=== PATIENT | male | born 1965 | race Caucasian/White ===

== ENCOUNTER 2016-04-21 07:07 | Observation (INO) | payer OTHER ==
[~2016-04-21] VITALS: Ht 177.8 cm; Wt 48.7 kg
[~2016-04-21 07:07] MED LIST: IBUP-232 PO
[2016-04-21 07:15] VITALS: BP 137/99; PULSE 97; RESP 16; TEMP 98.1; O2SAT 99
--- NOTE | 2016-04-21 07:57 | PD ---
HPI Chief Complaint: GI Complaint Time Seen by Provider: 07:38 Travel History International Travel<30 days: No Contact w/Intl Traveler<30days: No Traveled to known affect area: No History of Present Illness HPI 50yo M with no significant PMH presents to the ED with c/o inability to eat solid food since Tuesday night. States he was eating dinner and then felt a food particle stuck in his esophagus and was able to vomit it out. Pt states after that incident, he had not been able to eat anything solid. Feels that the food get stuck in midsternum around xyphoid process and it becomes painful to eat. Pt only able to eat 2 puddings since then. Able to drink liquid but takes 45 minutes to drink just a cup of coffee this morning. Denies any nausea , vomiting, chest pain, sob, abdominal pain. Denies history of achalasia, esophageal strictures or similar events. PFSH Past Medical History Medical History: Denies Significant Hx Tetanus Vaccination: < 5 Years Influenza Vaccination: No Past Surgical History Appendectomy: Yes Tonsillectomy: Yes Social History Alcohol Use: Yes (WEEKENDS) Tobacco Use: Yes (1PPD) Substance Use: No Allergies-Medications (Allergen,Severity, Reaction): Coded Allergies: No Known Allergies (Unverified , 04/21/16) Reported Meds & Prescriptions Reported Meds & Active Scripts Active No Active Prescriptions or Reported Medications Review of Systems Except as stated in HPI: all other systems reviewed are Neg Physical Exam Narrative GENERAL: 50yo M not in distress. SKIN: Warm and dry. HEAD: Atraumatic. Normocephalic. EYES: Pupils equal and round. No scleral icterus. No injection or drainage. ENT: Throat: Clear. NECK: Trachea midline. No JVD. CARDIOVASCULAR: Regular rate and rhythm. No murmur appreciated. RESPIRATORY: No accessory muscle use. Clear to auscultation. Breath sounds equal bilaterally. GASTROINTESTINAL: Abdomen soft, non-tender, nondistended. No rebound tenderness or guarding. MUSCULOSKELETAL: No obvious deformities. No clubbing. No cyanosis. No edema. NEUROLOGICAL: Awake and alert. No obvious cranial nerve deficits. Motor grossly within normal limits. Normal speech. PSYCHIATRIC: Appropriate mood and affect; insight and judgment normal. Data Data Last Documented VS Vital Signs Date Time Temp Pulse Resp B/P Pulse Ox O2 Delivery O2 Flow Rate FiO2 3/1/17 07:15 98.1 97 16 137/99 99 Orders Admit Order (Ed Use Only) (04/21/16 08:21) MDM Medical Decision Making Medical Screen Exam Complete: Yes Emergency Medical Condition: Yes Differential Diagnosis Esophageal stricture vs. partial esophageal obstruction vs. esophageal stricture Narrative Course 50yo M with inability to eat since Tuesday night. Pt was eating Tuesday night and felt something stuck in his esophagus. Even since then, he has not been able to eat solid food. Able to slowly drink liquid today. Discussed with GI transfer station attendant Dr. Jack and he recommended to transfer him to the [facility] for endoscopy and possible dilation. Pt has no medical history and not on any medications including anticoagulations. Diagnosis Primary Impression: Food impaction of esophagus Qualified Code: T18.128A - Food impaction of esophagus, initial encounter Admitting Information Admitting Physician Requests: Observation Scripts No Active Prescriptions or Reported Meds Devika Pennington DO Apr 21, 2016 07:57
[2016-04-21 09:18] VITALS: BP 128/87; PULSE 83; RESP 17; O2SAT 98
[2016-04-21] MEDS ORDERED: INSULIN HUMAN REGULAR 1,000 UNITS/10 ML VIAL SQ PRN (10:30)
[2016-04-21] MEDS ORDERED: METOPROLOL TARTRATE 25 MG TAB PO PRN (10:30)
[2016-04-21] MEDS ORDERED: LACTATED RINGER'S 1000 ML IV SCH (10:30)
[2016-04-21] MEDS ORDERED: SODIUM CHLORID 0.9% 500 ML IV SCH (10:30)
[2016-04-21] MEDS ORDERED: PROPOFOL 200 MG/20 ML AMP IV ONE (11:50)
--- NOTE | 2016-04-21 11:54 | EKG ---
Date Performed: 04/21/2016 Time Performed: 10:48:11 PTAGE: 50 years EKG: Sinus rhythm NORMAL ECG NO PREVIOUS TRACING DOCTOR: Isaías Bianchi Interpretating Date/Time 04/21/2016 11:53:05
--- NOTE | 2016-04-21 12:30 | PD.CONS ---
HPI History of Present Illness This is a 50 year old male who relates Tuesday night was eating some cubed steak and suddenly [place] half his meal he was no longer able to swallow he waited yesterday and the day before he was still unable to eat or drink and so he presents he denies any history of reflux heartburn or dysphagia denies any prior history of food bolus impactions he does report having lost over 20 pounds in the past several months but he is somewhat vague about this history he denies any pain shortness of breath cough fever or chills PFSH Past Medical History None Past Surgical History Tonsillectomy Appendectomy Coded Allergies: No Known Allergies (Unverified , 04/21/16) Medications None Family History Noncontributory Social History Patient smokes and drinks alcohol Review of Systems ROS Review of systems Patient denies any headache dizziness blurry vision, denies any chest pain shortness of breath cough fever chills, Denies any palpitations or fatigue denies any polyuria dysuria hematuria, denies any numbness tingling or weakness, denies any skin rash pruritus or jaundice, denies any easy bruising or bleeding tendency, denies any recent change in mood GI Exam Vitals I&O Vital Signs Date Time Temp Pulse Resp B/P Pulse Ox O2 Delivery O2 Flow Rate FiO2 04/21/16 09:18 83 17 128/87 98 Room Air 04/21/16 07:15 98.1 97 16 137/99 99 Physical Examination HEENT: Pupils round and reactive to light; normocephalic; atraumatic; no jaundice. Throat is clear. NECK: Neck is supple, no JVD, no lymphadenopathy. CHEST: Chest is clear to auscultation and percussion. CARDIAC: Regular rate and rhythm with no murmur gallop or rubs. ABDOMEN: Soft, nondistended, nontender; no hepatosplenomegaly; bowel sounds are present in all four quadrants. EXTREMITIES: No clubbing, cyanosis, or edema. SKIN: Normal; no rash; no jaundice. COOLING SYSTEM OPERATOR: No focal deficits; alert and oriented times three. Assessment and Plan Plan Foreign body in the esophagus / food bolus impaction Patient advised an EGD this will be done momentarily Eulogio Nathan MD Apr 21, 2016 12:30
--- NOTE | 2016-04-21 12:33 | PD.PROCEDR ---
GI Procedure PROCEDURE PERFORMED EGD with food bolus removal and biopsy INDICATION FOR PROCEDURE Food bolus impaction PROCEDURE: The procedure, risks and benefits were discussed with Mr. Escobar and informed consent was obtained. Anesthesia intubated the patient and he underwent general anesthesia. He was placed in the left lateral decubitus position. EGD: The Pentax videoscope was introduced through the oropharynx and advanced to the second portion of the duodenum under direct visualization. Retroflexion was performed in the stomach. FINDINGS: Esophagus there was a large amount of food noted in the esophagus using the Lee net we were able to remove everything the esophagus appeared to be unremarkable the Z line appeared to be irregular Stomach there was an irregularity of mucosa in the cardia close to the GE junction with some friability suspicious for malignancy I did biopsy the rest of the stomach had patchy erythema suggestive of some gastritis but no ulcerations no blood or bleeding The duodenum this was normal ESTIMATED BLOOD LOSS: None SPECIMENS REMOVED: Biopsies from the cardia COMPLICATIONS: None IMPRESSION: Food bolus impaction Irregular mucosa in the cardia suspicious for malignancy Gastritis PLAN: Await biopsies Precautions with eating Recommend CT of the abdomen and pelvis with contrast this may be done on an outpatient basis but soon CBC with a CMP Follow-up in clinic in 2 weeks Eulogio Nathan MD Apr 21, 2016 12:33
[2016-04-21] MEDS ORDERED: DO NOT ADM ANY ANTICOAGULANT DRUGS XX PRN (13:00)
[2016-04-21 13:10] VITALS: BP 134/85; PULSE 93; RESP 16; TEMP 97.9; O2SAT 96
[2016-07-12] MEDS ORDERED: CARB6.5S5 EACH EAR (10:36)
== END 2016-04-21 14:00 | disposition home or self-care (01) ==
LOC: PHED 07:07 → PHEDA 08:23 → HSDI 09:54
PROVIDERS: ADMIT Hospitalist; ATTEND Hospitalist
DX: T18.128A Food in esophagus causing other injury, initial encounter (principal); F17.210 Nicotine dependence, cigarettes, uncomplicated; K22.9 Disease of esophagus, unspecified; C16.0 Malignant neoplasm of cardia; K29.70 Gastritis, unspecified, without bleeding; Z01.810 Encounter for preprocedural cardiovascular examination
CPT/HCPCS: 00740; 43239; 88305; 93005; 99284; G0378

== ENCOUNTER → 2016-05-21 | Outpatient (CLI) | payer OTHER ==
[~2016-05-21] MED LIST changes: +B COTAB3 PO; +CARB6.5S5 EACH EAR; -IBUP-232 PO; +IOHEXOL 350 MG/ML 10 ML VIAL (for RAD DIAG) IV ONE; +JEVILIQ12 G-TUBE; +NUTR-265 PO; +ONE-TAB14 PO
--- NOTE | 2016-05-21 15:48 | RADRPT ---
EXAM DATE/TIME: 05/21/2016 14:55 [facility] COMPARISON: CT ABDOMEN & PELVIS W CONTRAST, May 21, 2016, 14:55. INDICATIONS : Esophageal cancer. IV CONTRAST: 46 cc Omnipaque 350 (iohexol) IV ; Cumulative dose for multiple exams. RADIATION DOSE: 4.75 CTDIvol (mGy) ; Combined studies - Thorax/Abdomen/Pelvis MEDICAL HISTORY : Hypertension. SURGICAL HISTORY : Esophageal dilation. ENCOUNTER: Initial ACUITY: 2 weeks PAIN SCALE: 1/10 LOCATION: Bilateral upper esophageal region. TECHNIQUE: Volumetric scanning of the chest was performed. Using automated exposure control and adjustment of the mA and/or kV according to patient size, radiation dose was kept as low as reasonab ly achievable to obtain optimal diagnostic quality images. FINDINGS: There is moderate hyperinflation. There are no suspicious lung lesions identified. There is no axillary adenopathy. There is no mediastinal adenopathy. Air-filled esophagus is seen d own to the GE junction where there is some bowel wall thickening evident. This does extend to the le delia of the GE junction. CONCLUSION: 1. There is no metastatic disease. 2. Lack of intravenous contrast makes detection of subtle disease very difficult. Dayton Butts MD FACR on May 21, 2016 at 15:37 Board Certified Radiologist. This report was verified electronically.
--- NOTE | 2016-05-21 16:06 | RADRPT ---
EXAM DATE/TIME: 05/21/2016 14:55 [facility] COMPARISON: No previous studies available for comparison. INDICATIONS : Esophageal cancer. IV CONTRAST: 46 cc Omnipaque 350 (iohexol) IV ; Cumulative dose for multiple exams. ORAL CONTRAST: Prescribed oral contrast ingested. RADIATION DOSE: 4.75 CTDIvol (mGy) ; Combined studies - Thorax/Abdomen/Pelvis MEDICAL HISTORY : Hypertension. SURGICAL HISTORY : Esophageal dilation. ENCOUNTER: Initial ACUITY: 2 weeks PAIN SCALE: 1/10 LOCATION: upper esophageal region. TECHNIQUE: Volumetric scanning of the abdomen and pelvis was performed. Using automated exposure control and ad justment of the mA and/or kV according to patient size, radiation dose was kept as low as reasonably achievable to obtain optimal diagnostic quality images. FINDINGS: LOWER LUNGS: Masslike wall thickening involving the lower thoracic esophagus. This measures 1.[address] thickness [address] proximal to the GE junction. LIVER: Homogeneous density without lesion. There is no dilation of the biliary tree. No calcified gallston es. SPLEEN: An 8 mm low-attenuation focus is seen involving the spleen. The remaining spleen is unremarkable. PANCREAS: A 10 mm low attenuation focus is seen involving the head of the pancreas. Hounsfield units are 16. Th e remaining pancreas is unremarkable. KIDNEYS: Normal in size and shape. There is no mass, stone or hydronephrosis. ADRENAL GLANDS: Within normal limits. VASCULAR: There is no aortic aneurysm. BOWEL/MESENTERY: The stomach, small bowel, and colon demonstrate no acute abnormality. There is no free intraperitone al air or fluid. ABDOMINAL WALL: Within normal limits. RETROPERITONEUM: There is no lymphadenopathy. BLADDER: No wall thickening or mass. REPRODUCTIVE: Within normal limits. INGUINAL: There is no lymphadenopathy or hernia. MUSCULOSKELETAL: Within normal limits for patient age. CONCLUSION: 1. Significant wall thickening involving the lower thoracic esophagus. This is consistent with the pa tient's history of esophageal malignancy. 2. 10 mm low attenuation lesion involving the head of the pancreas. This has CT characteristics sugge stive of a cystic lesion. Further characterization is warranted utilizing MRI of the pancreas with an d without gadolinium. 3. 8mm low attenuation lesion involving the spleen. This likely relates to a cyst or hemangioma. Al Tao Jr., MD on May 21, 2016 at 15:55 Board Certified Radiologist. This report was verified electronically.
== END ==
LOC: HRAD 12:14
PROVIDERS: ATTEND Internal Medicine Gastroenterology
DX: C15.9 Malignant neoplasm of esophagus, unspecified (principal)
CPT/HCPCS: 71260; 74177; Q9967

== ENCOUNTER → 2016-06-23 | Outpatient (CLI) | payer OTHER ==
[~2016-06-23] VITALS: Ht 172.7 cm; Wt 47.7 kg
[~2016-06-23] MED LIST changes: +CHLORHEXIDINE GLUCONATE 2 % 1 PACK (2 CLOTHS) TOPICAL PRN; +DO NOT ADM ANY ANTICOAGULANT DRUGS PRN; +FLUMAZENIL 0.5 MG/5 ML VIAL IV PRN; +GLYCOPYRROLATE 0.2 MG/ML VIAL IV ONE; +INSULIN HUMAN REGULAR 1,000 UNITS/10 ML VIAL SQ PRN; -IOHEXOL 350 MG/ML 10 ML VIAL (for RAD DIAG) IV ONE; +LACTATED RINGER'S 1000 ML INJ 1,000 ML ONE; +LACTATED RINGER'S 1000 ML IV PRN; +METOPROLOL TARTRATE 25 MG TAB PO PRN; +NALOXONE HCL 0.4 MG/ML AMP IV PRN; +POVIDONE IODINE 5% (ANTISEPSIS KIT) 4 APPLICATIONS EACH NARE PRN; +PROPOFOL 200 MG/20 ML AMP IV ONE; +SODIUM CHLORID 0.9% 500 ML IV PRN
[2016-06-23 15:13] VITALS: BP 157/91; PULSE 77; RESP 18; TEMP 97.8; O2SAT 99
--- NOTE | 2016-06-23 17:40 | PD.PROCEDR ---
GI Procedure REFERRING PHYSICIAN Dr. Wilcox PROCEDURE PERFORMED EGD with esophageal dilation followed by EUS INDICATION FOR PROCEDURE Distal esophageal cancer and dysphagia PROCEDURE: The procedure, risks and benefits were discussed with Mr. Escobar and informed consent was obtained. Anesthesia sedated him with Diprivan. He was placed in the left lateral decubitus position. EGD: The Pentax videoscope was introduced through the oropharynx and advanced to the second portion of the duodenum under direct visualization. Retroflexion was performed in the stomach. FINDINGS: The esophagus this appeared to be unremarkable and within normal limits all the way to the GE junction The stomach there was a tightness just beneath the GE junction representing the tumor this in the cardia a guidewire was placed through it and then using the 15 mm [employer] dilator I was able to dilate postdilatation view was satisfactory with no major bleeding or tears but I was able to pass the scope finally through the cardia into the stomach where there was a upper gastric body and tumor that was very friable on the lesser curve of the stomach biopsies were taken this is found to be an extension of the tumor in the cardia the rest of the gastric mucosa was unremarkable The duodenum this was normal Endoscopic ultrasound: The Pentax videoscope was introduced through the oropharynx to the stomach FINDINGS: The patient was noted to have a large deep penetrating tumor in the cardia abutting the aorta but not invading the aorta also noted to be abutting the Liver without invading the liver and large inhomogeneous mildly hypoechoic mass No regional lymphadenopathy was noted No vascular invasion noted This tumor would be classified as T4a Nx ESTIMATED BLOOD LOSS: None SPECIMENS REMOVED: Gastric biopsy COMPLICATIONS: None IMPRESSION: Stricturing at the level of the cardia secondary to a malignancy status post dilation and endoscopic ultrasound for staging 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
[2016-06-23 17:57] VITALS: BP 159/97; PULSE 91; RESP 18; TEMP 97.4; O2SAT 97
== END ==
LOC: HEND 14:45
PROVIDERS: ATTEND Internal Medicine Gastroenterology
DX: C16.0 Malignant neoplasm of cardia (principal); K22.2 Esophageal obstruction
CPT/HCPCS: 43237; 43239; 43248; 88305; 88312; C1769; J7120

== ENCOUNTER 2016-07-05 06:50 | Day surgery (SDC) | payer OTHER ==
[2016-07-05 07:08] VITALS: BP 133/101; PULSE 93; RESP 20; TEMP 97.5; O2SAT 95
[2016-07-12] MEDS ORDERED: CARB6.5S5 EACH EAR (10:36)
== END 2016-07-05 07:35 | disposition home or self-care (01) ==
LOC: HROP 06:50 → HRIP 06:52 → HROP 07:35
PROVIDERS: ATTEND Radiology Radiation Oncology
DX: C15.5 Malignant neoplasm of lower third of esophagus (principal)

== ENCOUNTER 2016-07-15 08:31 | Day surgery (SDC) | payer OTHER ==
[2016-07-15] VITALS (8 sets, daily range): BP systolic 104–139; BP diastolic 60–87; PULSE 93–107; RESP 18–20; TEMP 98.1; O2SAT 97–99
[~2016-07-15] VITALS: Ht 177.8 cm; Wt 47.3 kg
[~2016-07-15 08:31] MED LIST changes: -B COTAB3 PO; -CHLORHEXIDINE GLUCONATE 2 % 1 PACK (2 CLOTHS) TOPICAL PRN; -DO NOT ADM ANY ANTICOAGULANT DRUGS PRN; -FLUMAZENIL 0.5 MG/5 ML VIAL IV PRN; -GLYCOPYRROLATE 0.2 MG/ML VIAL IV ONE; -INSULIN HUMAN REGULAR 1,000 UNITS/10 ML VIAL SQ PRN; -JEVILIQ12 G-TUBE; -LACTATED RINGER'S 1000 ML INJ 1,000 ML ONE; -LACTATED RINGER'S 1000 ML IV PRN; -METOPROLOL TARTRATE 25 MG TAB PO PRN; -NALOXONE HCL 0.4 MG/ML AMP IV PRN; -NUTR-265 PO; -ONE-TAB14 PO; -POVIDONE IODINE 5% (ANTISEPSIS KIT) 4 APPLICATIONS EACH NARE PRN; -PROPOFOL 200 MG/20 ML AMP IV ONE; -SODIUM CHLORID 0.9% 500 ML IV PRN
[2016-07-15] MEDS ORDERED: POVIDONE IODINE 5% (ANTISEPSIS KIT) 4 APPLICATIONS EACH NARE SCH (09:45)
[2016-07-15] MEDS ORDERED: SODIUM CHLORIDE 0.9% 1000 ML IV SCH (09:45)
[2016-07-15] MEDS ORDERED: VANCOMYCIN 1000 MG/NS 250 ML - implanted port/tunneled catheter IV SCH ×2 (09:45)
[2016-07-15] MEDS ORDERED: ceFAZolin 2 GM PREMIX 50 ML - implanted port/tunneled catheter insertion IV SCH (09:45)
[2016-07-15] MEDS ORDERED: CHLORHEXIDINE GLUCONATE 2 % 1 PACK (2 CLOTHS) TOPICAL SCH (09:45)
[2016-07-15 09:48] LABS: APTT (PATIENT) 30.6 SEC (24.3-30.1); PROTHROMBIN TIME - PATIENT 10.7 SEC (9.8-11.6)
[2016-07-15] MEDS ORDERED: LIDOCAINE 1%/EPINEPHrine 1:100,000 SOLN 20 ML VIAL ONE (10:40)
[2016-07-15] MEDS ORDERED: MIDAZOLAM HCL 5 MG/5 ML VIAL ONE (10:42)
[2016-07-15] MEDS ORDERED: fentaNYL CITRATE 250 MCG/5 ML AMP ONE (10:43)
--- NOTE | 2016-07-15 11:27 | PD.RAD ---
Post Procedure Progress Note Pre Procedure Diagnosis: (1) Esophageal cancer Post Procedure Diagnosis: (1) Esophageal cancer Procedure Date: July 15, 2016 Supervising Radiologist: Ej Powers Proceduralist/Assist: RT Dwayne(R)(CV) Anesthesia: Local, Conscious Sedation Plan of Activity Patient to Unit: ROPU Patient Condition: Good See PACS Report for procedural detail/treatment Central Venous Access Device Procedure 1 Right Internal Jugular Infusaport Placement single lumen Danish: 8 Ej Powers MD July 15, 2016 11:27
[2016-07-15] MEDS ORDERED: SODIUM CHLORIDE 0.9% FLUSH 10 ML FLUSH IVF PRN (11:30)
--- NOTE | 2016-07-15 12:16 | RADRPT ---
EXAM DATE/TIME: 07/15/2016 11:29 [facility] COMPARISON: CT THORAX W CONTRAST, May 21, 2016, 14:55. INDICATIONS : Patient with distal esophageal carcinoma in need of Port placement. MEDICAL HISTORY : Gastroesophageal adenocarcinoma, Dysphagia SURGICAL HISTORY : Appendectomy, Tonsillectomy, Vasectomy ENCOUNTER: Initial ACUITY: 2 months PAIN SCORE: 0/10 FLUORO TIME: 0.5 minutes IMAGE SERIES: 1 SEDATION TIME: 30 minutes ACCESS: Right internal jugular vein SEDATION: 1.) 5 mg midazolam (Versed) IV 2.) 250 mcg fentanyl (Sublimaze) IV Prophylactic antibiotics were administered with appropriate pre-procedure timing. Vancomycin within 2 hours of procedure, Ancef (or alternative) within 1 hour of procedure. DEVICE: 1. 8 Amharic single lumen Smart Port CT Vortex PROCEDURE : 1. Continuous pulse oximetry and EKG monitoring. 2. Intravenous conscious sedation. 3. Ultrasound guidance for venous access. 4. Fluoroscopic guided implantable central venous port placement. The patient was placed supine. The neck was prepped in sterile fashion. Full sterile technique was u sed, including cap, mask, sterile gloves and gown, and a large sterile sheet. Hand hygiene and 2% ch lorhexidine Betadine was utilized per protocol for cutaneous antisepsis with appropriate dry time for site. The skin and subcutaneous tissues were infiltrated with local anesthetic solution. Under direct ultrasound guidance, central venous access was accomplished in the targeted vessel. The ultrasound images depicting access guidance were stored and saved to PACS for permanent record. A s ubcutaneous pocket was created using blunt dissection. The port was introduced to the pocket. The c atheter tubing was fed through a subcutaneous tunnel to the venotomy site. The catheter tubing was c ut to a suitable length and then was introduced through a valved Peel-Away sheath and positioned with catheter tubing tip at the cavo-atrial junction level. The pocket incision was closed with subcutic ular Vicryl suture. Steri-Strips were applied. The port was flushed and locked with heparin solutio n per protocol. Sterile dressing was applied to the site. The patient tolerated the procedure well. Conscious sedation was performed with the prescribed dosages and duration as above in the presence of an independent trained radiology nurse to assist in the monitoring of the patient. EKG and oximetry remained stable throughout the procedure. The patient tolerated the procedure well and there were no complications. The patient was sent to post anesthesia recovery in stable condition. CONCLUSION: Uncomplicated ultrasound and fluoroscopic guided implanted central venous port catheter placement as described in detail above. An 8 Amharic Power port was placed. Ej Powers MD on July 15, 2016 at 12:13 Board Certified Radiologist. This report was verified electronically.
== END 2016-07-15 13:30 | disposition home or self-care (01) ==
LOC: HRIP 08:31 → HROP 08:31
PROVIDERS: ATTEND Internal Medicine
DX: C15.5 Malignant neoplasm of lower third of esophagus (principal)
CPT/HCPCS: 36561; 76937; 77001; 85610; 85730; 99152; 99153; C1769; C1788; C1894; J0690; J1642; J2250; J3010; J3370; J7050

== ENCOUNTER 2016-07-20 10:04 | Observation (INO) | payer OTHER ==
[~2016-07-20] VITALS: Ht 177.8 cm; Wt 56.5 kg
[2016-07-20 10:06] VITALS: BP 110/73; PULSE 107; RESP 16; TEMP 97.8; O2SAT 97
[2016-07-20] MEDS ORDERED: SODIUM CHLOR 0.9% 1000 ML INJ 1,000 ML IV ONE (11:00)
--- NOTE | 2016-07-20 11:02 | PD ---
HPI Chief Complaint: ENT Complaint Time Seen by Provider: 10:47 Travel History International Travel<30 days: No Contact w/Intl Traveler<30days: No Traveled to known affect area: No History of Present Illness HPI 50yo M with PMH of stage III gastroesophageal adenocarcinoma presents from his oncologist's office because pt has not been able to eat or drink for 10 days. Pt went for his radiation therapy today and told the oncall oncologist his symptoms and he called Dr. Wilcox (pt's oncologist) who advised him to come to the ED. Pt had 2 EGD before, last one was about 4 weeks ago when he had similar symptoms and he was able to eat after. Pt just started chemotherapy last Tuesday. Denies any fever, chest pain, sob, n/v, focal weakness or numbness. Pt has been having abdominal discomfort because he has not eaten. States he feels that it gets stuck in his esophagus even with drinking water. PFSH Past Medical History Cancer: Yes (esophageal CA) Cardiovascular Problems: No Chemotherapy: Yes Diabetes: No Endocrine: No Genitourinary: No Hepatitis: No Hiatal Hernia: No Immune Disorder: No Musculoskeletal: No Neurologic: No Psychiatric: No Reproductive: No Respiratory: No Thyroid Disease: No Tetanus Vaccination: Unknown Past Surgical History Abdominal Surgery: Yes (APPY) AICD: No Appendectomy: Yes Cardiac Surgery: No Ear Surgery: No Endocrine Surgery: No Eye Surgery: No Genitourinary Surgery: No Gynecologic Surgery: No Joint Replacement: No Oral Surgery: No Pacemaker: No Thoracic Surgery: No Tonsillectomy: Yes Social History Alcohol Use: No (not anymore) Tobacco Use: Yes (2 cigarrettes per day) Substance Use: No Allergies-Medications (Allergen,Severity, Reaction): Coded Allergies: No Known Allergies (Unverified , 07/20/16) Reported Meds & Prescriptions Reported Meds & Active Scripts Active No Active Prescriptions or Reported Medications Review of Systems Except as stated in HPI: all other systems reviewed are Neg Physical Exam Narrative GENERAL: 50yo M not in distress. Cachetic. SKIN: Focused skin assessment warm/dry. HEAD: Atraumatic. Normocephalic. EYES: Pupils equal and round. No scleral icterus. No injection or drainage. ENT: No nasal bleeding or discharge. Mucous membranes pink and moist. NECK: Trachea midline. No JVD. CARDIOVASCULAR: Regular rate and rhythm. No murmur appreciated. RESPIRATORY: No accessory muscle use. Clear to auscultation. Breath sounds equal bilaterally. GASTROINTESTINAL: Abdomen soft, mild diffuse ttp. No rebound tenderness or guarding. MUSCULOSKELETAL: No obvious deformities. No clubbing. No cyanosis. No edema. NEUROLOGICAL: Awake and alert. No obvious cranial nerve deficits. Motor grossly within normal limits. Normal speech. PSYCHIATRIC: Appropriate mood and affect; insight and judgment normal. Data Data Last Documented VS Vital Signs Date Time Temp Pulse Resp B/P Pulse Ox O2 Delivery O2 Flow Rate FiO2 07/20/16 12:00 88 16 137/88 100 Room Air 07/20/16 10:06 97.8 Orders Complete Blood Count With Diff (07/20/16 10:53) Comprehensive Metabolic Panel (07/20/16 10:53) Prothrombin Time / Inr (Pt) (07/20/16 10:53) Act Partial Throm Time (Ptt) (07/20/16 10:53) Sodium Chlor 0.9% 1000 Ml Inj (Ns 1000 M (07/20/16 11:00) Consult Gastroenterology (07/20/16 ) (Hub Use Only)Inp Phy Cons/Ref (07/20/16 ) Admit Order (Ed Use Only) (07/20/16 13:43) Labs Laboratory Tests Test 07/20/16 07/20/16 10:30 11:44 White Blood Count 8.3 TH/MM3 Red Blood Count 4.66 MIL/MM3 Hemoglobin 14.9 GM/DL Hematocrit 43.6 % Mean Corpuscular Volume 93.5 FL Mean Corpuscular Hemoglobin 32.0 PG Mean Corpuscular Hemoglobin 34.2 % Concent Red Cell Distribution Width 13.3 % Platelet Count 339 TH/MM3 Mean Platelet Volume 8.2 FL Neutrophils (%) (Auto) 80.5 % Lymphocytes (%) (Auto) 6.1 % Monocytes (%) (Auto) 11.5 % Eosinophils (%) (Auto) 1.6 % Basophils (%) (Auto) 0.3 % Neutrophils # (Auto) 6.7 TH/MM3 Lymphocytes # (Auto) 0.5 TH/MM3 Monocytes # (Auto) 1.0 TH/MM3 Eosinophils # (Auto) 0.1 TH/MM3 Basophils # (Auto) 0.0 TH/MM3 CBC Comment DIFF FINAL Differential Comment Prothrombin Time 10.7 SEC Prothromb Time International 1.0 RATIO Ratio Activated Partial 32.9 SEC Thromboplast Time Sodium Level 136 MEQ/L Potassium Level 4.2 MEQ/L Chloride Level 99 MEQ/L Carbon Dioxide Level 27.5 MEQ/L Anion Gap 10 MEQ/L Blood Urea Nitrogen 13 MG/DL Creatinine 0.55 MG/DL Estimat Glomerular Filtration 158 ML/MIN Rate Random Glucose 91 MG/DL Calcium Level 9.5 MG/DL Total Bilirubin 0.6 MG/DL Aspartate Amino Transf 22 U/L (AST/SGOT) Alanine Aminotransferase 19 U/L (ALT/SGPT) Alkaline Phosphatase 119 U/L Total Protein 7.7 GM/DL Albumin 3.5 GM/DL MDM Medical Decision Making Medical Screen Exam Complete: Yes Emergency Medical Condition: Yes Differential Diagnosis Esophageal stricture vs. esophageal compression from cancer vs. food impaction vs. Dehydration vs. electrolyte abnormality Narrative Course 50yo M with gastroesophageal adenocarcinoma here because he is unable to eat or drink anything. States that he feels it getting stuck and it becomes painful. Labs reviewed, no leukocytosis. CMP unremarkable. GI consult placed for EGD. Discussed with resident physician and accepted to their service. I discussed with Dr. Wilcox who agrees and also wants him to get a J tube placed. Diagnosis Primary Impression: Esophageal cancer Qualified Code: C15.9 - Malignant neoplasm of esophagus, unspecified location Admitting Information Admitting Physician Requests: Observation Scripts No Active Prescriptions or Reported Meds Devika Pennington DO July 20, 2016 11:02
[2016-07-20 11:18] LABS: AUTOMATED NEUTROPHIL # 6.7 TH/MM3 (1.8-7.7); BASOPHIL % 0.3 % (0.0-2.0); EOSINOPHIL # 0.1 TH/MM3 (0-0.4); EOSINOPHIL % 1.6 % (0.0-4.0); HEMATOCRIT 43.6 % (39.0-51.0); HEMO FLAGS DIFF FINAL; LYMPH % 6.1 % (9.0-44.0); LYMPHOCYTE # 0.5 TH/MM3 (1.0-4.8); MEAN CELL VOLUME 93.5 FL (80.0-100.0); MEAN CORPUSCULAR HGB CONC 34.2 % (32.0-36.0); MONO % 11.5 % (0.0-8.0); NEUT % 80.5 % (16.0-70.0); PLATELET COUNT 339 TH/MM3 (150-450); RED BLOOD COUNT 4.66 MIL/MM3 (4.50-5.90); RED CELL DISTRIBUTION WIDTH 13.3 % (11.6-17.2); WHITE BLOOD COUNT 8.3 TH/MM3 (4.0-11.0)
[2016-07-20 12:00] VITALS: BP 137/88; PULSE 88; RESP 16; O2SAT 100
[2016-07-20 12:19] LABS: PROTHROMBIN TIME - PATIENT 10.7 SEC (9.8-11.6)
[2016-07-20 12:21] LABS: APTT (PATIENT) 32.9 SEC (24.3-30.1)
[2016-07-20 12:31] LABS: ALKALINE PHOSPHATASE 119 U/L (45-117); TOTAL BILIRUBIN ADULT 0.6 MG/DL (0.2-1.0)
[2016-07-20 12:36] LABS: ALT (GPT) 19 U/L (12-78); ANION GAP 10 MEQ/L (5-15); AST (GOT) 22 U/L (15-37); BICARBONATE 27.5 MEQ/L (21.0-32.0); BLOOD UREA NITROGEN 13 MG/DL (7-18); CHLORIDE 99 MEQ/L (98-107); GLOMERULAR FILTRATION RATE 158 ML/MIN (>89); POTASSIUM 4.2 MEQ/L (3.5-5.1); SODIUM (NA) 136 MEQ/L (136-145)
--- NOTE | 2016-07-20 13:30 | PD.CONS ---
HPI History of Present Illness This is a 50 year old [gentleman] with hx stage 3 primary esophageal cancer who presented today b/c he cannot swallow any solid food or liquid, not even water. He is also having painful swallowing. He was diagnosed a few months ago in April and has had intermittent dysphagia since then. He had EGD with dilation about a month ago adn that helped but in the last two weeks he has started having trouble again. If he tries to eat, food comes up, so does water. He has been trying shakes and can get some down but not much. He has lost 15 lbs in 3 weeks. he was told that he was supposed to see Dr Reis for a GJ tube but has not seen him yet. He is in his 3rd week of radiation, started chemotherapy last week. His oncologist is Dr Wilcox. (Danita Hinkle) PFSH Past Medical History primary esophageal cancer Past Surgical History t&a appendectomy (Danita Hinkle) Coded Allergies: No Known Allergies (Unverified , 07/20/16) Family History none Social History doesnt currently drink, last drank 3 weeks ago, was averaging 4 beers/night smokes 1ppd no illicit drugs (Danita Hinkle) Review of Systems Constitutional: COMPLAINS OF: Weight loss, DENIES: Fever Eyes: DENIES: Blurred vision Ears, nose, mouth, throat: DENIES: Hearing loss Respiratory: DENIES: Cough Cardiovascular: DENIES: Chest pain Gastrointestinal: COMPLAINS OF: Abdominal pain (he says hunger pains), Vomiting (regurgitation), DENIES: Black stools, Bloody stools, Constipation, Diarrhea, Nausea, Hematemesis Genitourinary: DENIES: Hematuria Musculoskeletal: DENIES: Joint pain Integumentary: DENIES: Rash Hematologic/lymphatic: DENIES: Bruising Neurologic: DENIES: Abnormal gait Psychiatric: DENIES: Confusion (Danita Hinkle) GI Exam Vitals I&O Vital Signs Date Time Temp Pulse Resp B/P Pulse Ox O2 Delivery O2 Flow Rate FiO2 07/20/16 12:00 88 16 137/88 100 Room Air 07/20/16 10:17 104 18 07/20/16 10:06 97.8 107 16 110/73 97 Laboratory Test 07/20/16 07/20/16 10:30 11:44 White Blood Count 8.3 TH/MM3 Red Blood Count 4.66 MIL/MM3 Hemoglobin 14.9 GM/DL Hematocrit 43.6 % Mean Corpuscular Volume 93.5 FL Mean Corpuscular Hemoglobin 32.0 PG Mean Corpuscular Hemoglobin 34.2 % Concent Red Cell Distribution Width 13.3 % Platelet Count 339 TH/MM3 Mean Platelet Volume 8.2 FL Neutrophils (%) (Auto) 80.5 % Lymphocytes (%) (Auto) 6.1 % Monocytes (%) (Auto) 11.5 % Eosinophils (%) (Auto) 1.6 % Basophils (%) (Auto) 0.3 % Neutrophils # (Auto) 6.7 TH/MM3 Lymphocytes # (Auto) 0.5 TH/MM3 Monocytes # (Auto) 1.0 TH/MM3 Eosinophils # (Auto) 0.1 TH/MM3 Basophils # (Auto) 0.0 TH/MM3 CBC Comment DIFF FINAL Differential Comment Prothrombin Time 10.7 SEC Prothromb Time International 1.0 RATIO Ratio Activated Partial 32.9 SEC Thromboplast Time Sodium Level 136 MEQ/L Potassium Level 4.2 MEQ/L Chloride Level 99 MEQ/L Carbon Dioxide Level 27.5 MEQ/L Anion Gap 10 MEQ/L Blood Urea Nitrogen 13 MG/DL Creatinine 0.55 MG/DL Estimat Glomerular Filtration 158 ML/MIN Rate Random Glucose 91 MG/DL Calcium Level 9.5 MG/DL Total Bilirubin 0.6 MG/DL Aspartate Amino Transf 22 U/L (AST/SGOT) Alanine Aminotransferase 19 U/L (ALT/SGPT) Alkaline Phosphatase 119 U/L Total Protein 7.7 GM/DL Albumin 3.5 GM/DL Physical Examination HEENT: EOMI; normocephalic; atraumatic; no jaundice. CHEST: CTA CARDIAC: RRR ABDOMEN: Soft, nondistended, diffuse TTP; no hepatosplenomegaly; bowel sounds are present in all four quadrants. EXTREMITIES: No clubbing, cyanosis, or edema. SKIN: Normal; no rash; no jaundice. 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 (Danita Hinkle) Assessment and Plan Plan ASSESSMENT - dysphagia, odynophagia - ongoing problem since April, has had several EGD/ dil. In last 10 days pt having difficulty consuming more than few sips of ensure, has trouble swallowing water, has pain with swallowing. Last was 5-3-17 EGD/EUS---> stricturing at level of cardia 2/2 malignancy s/p dilation and EUS staging cancer cardia stage [id number], gastric body nodule probably extension of tumor. - esophageal cancer - stage 3 primary esophageal cancer. PLAN - EGD today - obtain consents - NPO - further recommendations to follow procedure This pt seen by myself and Dr Khalil and this note is written on his behalf ( Danita Hinkle) Physician Comments Seen and examined, will proceed with EGD today with possible dilation. Further recommendations to follow. (Francisco Khalil MD) Danita Hinkle July 20, 2016 13:30 Francisco Khalil MD July 20, 2016 15:21
--- NOTE | 2016-07-20 14:06 | HHI.HP ---
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 Today he went to his oncologist's office because of worsening ability to eat, who sent him to the hospital. He says for the last week she's been having difficulty with swallowing food. However for the last 10-12 days he has been unable to swallow solid food. And that has progressively worsened to the last 3 days worries been unable to even get down liquids. He has not been able to get his protein shakes and has been feeling weaker and weaker because of this. He says that this is the third time that he has required an EGD with dilation in the last 2-3 months. At this point he is feeling very very hungry. He is even more concerned about the fact that he cannot get liquids down, and now feels like he is struggling just to get saliva down. He has started chemotherapy last week. Of note his oncologist Dr. Wilcox, wishes for him to have J-tube placed during this hospitalization. Discussed this with the stock parts inspector who says they' re unlikely to be able to perform J-tube placement due to the stricture and suggest IR for placement. (Marc Carrillo MD R2) Review of Systems Constitutional: COMPLAINS OF: Weight loss, Change in appetite (increased due to hunger), DENIES: Fever, Weight gain, Chills Endocrine: DENIES: Polyuria Eyes: DENIES: Blurred vision, Vision loss, Double Vision Ears, nose, mouth, throat: COMPLAINS OF: Throat pain, Hoarseness, DENIES: Nasal discharge, Running Nose, Sinus Pain Respiratory: DENIES: Cough, Hemoptysis, Sputum production, Shortness of breath Cardiovascular: DENIES: Chest pain, Syncope, Claudication Gastrointestinal: COMPLAINS OF: Abdominal pain, Vomiting, Difficulty Swallowing , Anorexia, DENIES: Black stools, Bloody stools, Diarrhea, Nausea Genitourinary: DENIES: Urinary incontinence, Urgency Musculoskeletal: COMPLAINS OF: Neck pain, DENIES: Joint pain, Muscle aches, Joint Swelling, Back pain Integumentary: DENIES: Rash Hematologic/lymphatic: DENIES: Bruising Neurologic: DENIES: Abnormal gait, Headache, Seizures, Speech Problems, Poor Balance Psychiatric: DENIES: Anxiety, Confusion, Depression (Marc Carrilol MD R2) Past Family Social History Past Medical History Throat cancer on chemo Past Surgical History appendectomy Reported Medications Reported Meds & Active Scripts Active No Active Prescriptions or Reported Medications (Marc Carrillo MD R2) Allergies: Coded Allergies: No Known Allergies (Unverified , 07/20/16) Family History noncontributory Social History Live in [place] in a Mobile home with his daughter Disability Smoke went a pack a day to 2 cigs a day been smoking 35 years Quit drinking. use to drink 45 beers a night No illicit drugs (Marc Carrillo MD R2) Physical Exam Vital Signs Vital Signs Date Time Temp Pulse Resp B/P Pulse Ox O2 Delivery O2 Flow Rate FiO2 07/20/16 12:00 88 16 137/88 100 Room Air 07/20/16 10:17 104 18 07/20/16 10:06 97.8 107 16 110/73 97 Physical Exam GENERAL: 50yo M in no apparent distress. Cachetic. SKIN: Focused skin assessment warm/dry. HEAD: Atraumatic. Normocephalic. EYES: Pupils equal and round. No scleral icterus. No injection or drainage. ENT: No nasal bleeding or discharge. Mucous membranes pink and moist. NECK: Trachea midline. No JVD. CARDIOVASCULAR: Regular rate and rhythm. No murmur appreciated. RESPIRATORY: No accessory muscle use. Clear to auscultation. Breath sounds equal bilaterally. GASTROINTESTINAL: Abdomen soft, mild diffuse ttp. No rebound tenderness or guarding. MUSCULOSKELETAL: No obvious deformities. No clubbing. No cyanosis. No edema. NEUROLOGICAL: Awake and alert. No obvious cranial nerve deficits. Motor grossly within normal limits. Normal speech. PSYCHIATRIC: Appropriate mood and affect; insight and judgment normal. Laboratory Laboratory Tests Test 07/20/16 07/20/16 10:30 11:44 White Blood Count 8.3 Red Blood Count 4.66 Hemoglobin 14.9 Hematocrit 43.6 Mean Corpuscular Volume 93.5 Mean Corpuscular Hemoglobin 32.0 Mean Corpuscular Hemoglobin 34.2 Concent Red Cell Distribution Width 13.3 Platelet Count 339 Mean Platelet Volume 8.2 Neutrophils (%) (Auto) 80.5 Lymphocytes (%) (Auto) 6.1 Monocytes (%) (Auto) 11.5 Eosinophils (%) (Auto) 1.6 Basophils (%) (Auto) 0.3 Neutrophils # (Auto) 6.7 Lymphocytes # (Auto) 0.5 Monocytes # (Auto) 1.0 Eosinophils # (Auto) 0.1 Basophils # (Auto) 0.0 CBC Comment DIFF FINAL Differential Comment Prothrombin Time 10.7 Prothromb Time International 1.0 Ratio Activated Partial 32.9 Thromboplast Time Sodium Level 136 Potassium Level 4.2 Chloride Level 99 Carbon Dioxide Level 27.5 Anion Gap 10 Blood Urea Nitrogen 13 Creatinine 0.55 Estimat Glomerular Filtration 158 Rate Random Glucose 91 Calcium Level 9.5 Total Bilirubin 0.6 Aspartate Amino Transf 22 (AST/SGOT) Alanine Aminotransferase 19 (ALT/SGPT) Alkaline Phosphatase 119 Total Protein 7.7 Albumin 3.5 (Marc Carrillo MD R2) Result Diagram: 07/20/16 1030 07/20/16 1144 Assessment and Plan Assessment and Plan This a 50-year-old male with past medical history significant for 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 Being admitted for dysphagia and J-tube placement. Code Status Full code Discussed Condition With wdw: Dr. Carl (Marc Carrillo MD R2) Attending Attestation THIS CASE WAS DISCUSSED WITH THE RESIDENT PHYSICIAN. I HAVE REVIEWED THE RECORD AND AGREE WITH THE ABOVE NOTE AND PLAN OF CARE WAS DISCUSSED. I HAVE AUTHORIZED THE ORDER FOR PLACEMENT IN OUT-PATIENT OBSERVATION STATUS. (Jai Carl MD) Problem List: (1) Dysphagia Status: Acute Plan: Patient is being admitted for dysphagia. This will be the third time he has required EGD with dilation due to stricture. GI is on board and he is being prepared to be taken back to the endoscopy lab. Per patient's oncologist , J-tube is required for the patient. Per discussion with GI and they will be unable to place the J-tube and suggest IR consultation. * Admit to observation * Gastroenterology consulted, recommendations appreciated * Anticipate endoscopy with dilation * Consulted IR for J-tube placement, recommendations appreciated * IV fluids at D5 1/2 NS at 85 MLS per hour * Tylenol 650 mg by mouth every 4 hours when necessary temperature, pain, headache * CBC, BMP ordered for the a.m. * Speech therapy consulted (2) Esophageal cancer Status: Chronic Plan: Patient with stage III gastroesophageal adenocarcinoma. Started chemotherapy 1 week ago. * Consulted oncology, Dr. Wilcox for recommendations during this hospitalization * Chemotherapy per scheduled regimen * J-tube to be placed during this hospitalization (3) Nutrition, metabolism, and development symptoms Status: Acute Plan: Diet: Anticipate soft diet following endoscopy with dilation Fluids: IV fluids as above Vitals every 4 Out of bed ad ted. Monitor electrolytes place coronary DVT prophylaxis with SCDs holding pharmacological prophylaxis for possible J- tube placement CODE STATUS: Full code Disposition: Following J-tube placement (Marc Carrillo MD R2) Marc Carrillo MD R2 July 20, 2016 14:06 Jai Carl MD July 21, 2016 11:09
[2016-07-20] MEDS: D5-1/2 NS + KCL 20 MEQ INJ 1,000 ML IV SCH (14:11)
[2016-07-20] MEDS ORDERED: DOCUSATE SODIUM 50 MG/SENNA 8.6 MG TAB PO PRN (14:15)
[2016-07-20] MEDS ORDERED: NALOXONE HCL 0.4 MG/ML AMP IV PRN (14:15)
[2016-07-20] MEDS ORDERED: BISACODYL 10 MG SUPP RECTAL PRN (14:15)
[2016-07-20] MEDS ORDERED: MAGNESIUM HYDROXIDE SUSP 30 ML CUP PO PRN (14:15)
[2016-07-20] MEDS ORDERED: LACTULOSE SYRUP 20 GM/30 ML CUP PO PRN (14:15)
[2016-07-20] MEDS ORDERED: ZOLPIDEM TARTRATE 5 MG TAB PO PRN (14:15)
[2016-07-20] MEDS ORDERED: ONDANSETRON HCL 4 MG/2 ML VIAL IVP PRN (14:15)
[2016-07-20] MEDS ORDERED: SODIUM CHLORIDE 0.9% FLUSH 10 ML FLUSH IV FLUSH PRN (14:15)
[2016-07-20] MEDS ORDERED: SENNOSIDES 8.6 MG TAB PO PRN (14:15)
[2016-07-20] MEDS ORDERED: PROPOFOL 200 MG/20 ML AMP IV ONE (14:50)
[2016-07-20 14:59] VITALS: O2SAT 99
--- NOTE | 2016-07-20 15:07 | GIPROC ---
[facility] [address] [facility]. [facility], [address] EGD WITH DILATION PROCEDURE REPORT EXAM DATE: 07/20/2016 PATIENT NAME: Jg Escobar MR#: [id number] BIRTHDATE: 1965 ATTENDING: Francisco Khalil MD ORDER #: [id number] HELP DESK INTERN: Og Saez Stienbarger, Terrie, and Patrice Wheatley STATUS: inpatient INDICATIONS: The patient is a 50 yr old male here for an EGD with dilation due to follow-up of malignant esophageal adenocarcinoma PROCEDURE PERFORMED: EGD w/ balloon dilation of esophagus MEDICATIONS: Per Anesthesia and None. TOPICAL ANESTHETIC: none CONSENT: The patient understands the risks and benefits of the procedure and understands that these risks include, but are not limited to: sedation, allergic reaction, infection, perforation and/or bleeding. Alternative means of evaluation and treatment include, among others: physical exam, x-rays, and/or surgical intervention. The patient elects to proceed with this endoscopic procedure. medical equipment was checked for proper function. Hand hygiene and appropriate measures for infection prevention was taken. After the risks, benefits and alternatives of the procedure were thoroughly explained, Informed consent was verified, confirmed and timeout was successfully executed by the treatment team. The patient was anesthetized with topical anesthesia and the Pentax EG-[id number] endoscope was introduced through the mouth and advanced to the second portion of the duodenum. The instrument was slowly withdrawn as the mucosa was fully examined. ESOPHAGUS: White exudates consistent with candidiasis were found in the mid esophagus. A near circumferential ulcerated and firm mass with friable surfaces was found in the distal esophagus and at the esopho-gastric anastamosis. STOMACH: The stomach otherwise appeared normal. DUODENUM: The duodenal mucosa appeared normal in the bulb and second portion of the duodenum. Dilation was performed at gastroesophageal junction. DILATOR: SIZE(S): RESISTANCE: HEME: APPEARANCE: Dilator: Balloon Size(s): 16-17-18 Resistance: minimal Heme: none Appearance: adequate COMMENT: Retroflexed views revealed Ulcerated tumor extending from the esophagus ADVERSE EVENTS: There were no complications. IMPRESSIONS: 1. White exudates consistent with candidiasis in the mid esophagus 2. Near circumferential mass was found in the distal esophagus and at the esopho-gastric anastamosis 3. The stomach otherwise appeared normal 4. Normal duodenal mucosa in the bulb and second portion of the duodenum 5. Retroflexed views revealed Ulcerated tumor extending from the esophagus RECOMMENDATIONS: No treatment REPEAT EXAM: Return as needed for EGD with dilatation Francisco Khalil MD eSigned: Francisco Khalil MD 07/20/2016 3:07 PM cc: PATIENT NAME: Jg Escobar MR#: [id number]
[2016-07-20] MEDS ORDERED: DO NOT ADM ANY ANTICOAGULANT DRUGS PRN (15:08)
[2016-07-20] MEDS: ACETAMINOPHEN 325 MG TAB PO PRN (17:21)
[2016-07-20] MEDS: NICOTINE 21 MG/24 HR PATCH T-DERMAL SCH (17:22)
[2016-07-20 20:00] VITALS: BP 141/88; PULSE 98; RESP 19; TEMP 97.6; O2SAT 97
[2016-07-20] MEDS: REMOVE OLD PATCH T-DERMAL SCH (20:26)
[2016-07-20] MEDS: SODIUM CHLORIDE 0.9% FLUSH 10 ML FLUSH IV FLUSH SCH (20:26)
--- NOTE | 2016-07-20 21:46 | MB ---
cc: CRESENCIO GALEANO DATE OF CONSULTATION 07/20/2016 DATE OF 1965 REASON FOR CONSULTATION esophageal carcinoma and dysphagia HPI: Patient with a diagnosis of stage III T4a N0 M0 gastroesophageal adenocarcinoma. The patient is currently undergoing concurrent chemotherapy and radiation treatments. He had presented with dysphagia in early April of 2016 and EGD was performed which showed large amount of food stuck in the esophagus which was removed. There was a an esophageal mass. Biopsy confirmed a poorly differentiated adenocarcinoma with focal mucinous features. There was significant wall thickening involving the lower thoracic esophagus. He underwent an endoscopic ultrasound which showed a large tumor penetrating the cardia and abutting the aorta but not invading the aorta. A PET scan was performed which did not show any distal metastatic disease. Due to insurance issues the patient has not been able to have a J-tube placed prior to his chemo radiation treatments. The patient today presented to the radiation oncology clinic and was feeling unwell. He has been unable to swallow any food. He has not been able to drink any fluids either. He appeared to be quite weak and cachectic. The patient was sent to the emergency department. He is now being admitted to the hospital. REVIEW OF SYSTEMS A comprehensive 14-point review of systems was completed which is negative except as described in the HPI. PAST MEDICAL HISTORY History of gastroesophageal adenocarcinoma. PAST SURGICAL HISTORY 1. History of appendectomy. 2. Port placement. FAMILY HISTORY Was reviewed and noncontributory to this admission. SOCIAL HISTORY History of tobacco abuse. No illicit drug use. MEDICATIONS 1. Nicotine patch daily. 2. Tylenol 650 one tablet p.o. q.4h as needed. 3. Zofran 4 milligrams IV q.6h as needed. 4. Ambien 5 milligrams p.o. q.h.s. as needed. 5. Zofia-Colace one tablet p.o. twice a day. 6. Milk of Magnesia 30 cc p.o. q.12h. 7. Senokot 17.2 milligrams one tablet p.o. q.12h. 8. Dulcolax 10 milligrams suppository as needed. 9. Lactulose 30 cc p.o. daily as needed. ALLERGIES NO KNOWN DRUG ALLERGIES. PHYSICAL EXAMINATION VITAL SIGNS: Blood pressure is 121/82, pulse is in the 90s, temperature is 98.1, respiratory rate is 14, O2 sats are 99% on room air. GENERAL: Frail, cachectic, thin appearing male in no apparent distress. HEENT: Pupils are equal, round, reactive to light. EOMI. No oral thrush. No oral lesions. NECK: Supple. No JVD, no bruits. No lymphadenopathy. CHEST: Clear to auscultation bilaterally. CARDIOVASCULAR: S1-S2 regular rate and rhythm. ABDOMEN: Soft, nontender, nondistended. Bowel sounds are present. EXTREMITIES: No edema, erythema or cyanosis. SKIN: Without any petechiae, lesion or bruises. MUSCULOSKELETAL: Temporal wasting is noted. LYMPHATICS: Lymph node examination, no lymphadenopathy on examination. NEUROLOGIC: No focal deficits. PSYCHIATRIC: Mood and affect appropriate. LABORATORY DATA WBC is 8.3, hemoglobin is 14.9, platelet count is 239. Serum chemistries show sodium of 136, potassium 4.2, carbon dioxide is 27.5, chloride 99, BUN 13, creatinine 0.55, calcium is 9.5. Total bilirubin is 0.6, AST 22, ALT 90, alk phos of 119, total protein 7.7, albumin is 3.5. CEA is elevated to 6.3. Coags show PT of 10.7, INR 1.0, PTT 32.9. ASSESSMENT AND PLAN This is a 50-year-old male with a diagnosis of stage III T4 N0 M0 distal esophageal carcinoma who is currently getting concurrent chemotherapy and radiation treatments. He presented to the emergency department with significant dysphagia, poor oral intake, dehydration and cachexia. 1. Dysphagia secondary to malignancy. Also esophagitis from radiation and chemotherapy. This patient needs to have a J tube placement. He had issues with insurance and was not able to have a J tube placed outpatient. We will ask gastroenterology to assist in placing a J tube. We will consult dietary. 2. Pain control. Continue pain medications. 3. Dehydration. Continue IV fluids with D5. 4. Cachexia and malnutrition due to poor oral intake as above. 5. Diagnosis of stage III T4 N0 M0 distal esophageal carcinoma. Chemotherapy and XRT treatment as an outpatient. Thank you for allowing me to participate in the care of this patient. I will continue to follow this patient along. MD CHA Barrios/HANNAH /9:04 PM /9:26 PM RAIZA
[2016-07-21] VITALS: BP 128/84; PULSE 95; RESP 17; TEMP 98; O2SAT 98
[2016-07-21 04:00] VITALS: BP 129/89; PULSE 98; RESP 19; TEMP 98.2; O2SAT 97
[2016-07-21] MEDS: D5-1/2 NS + KCL 20 MEQ INJ 1,000 ML IV SCH ×2 (04:38→14:15)
[2016-07-21 05:14] LABS: AUTOMATED NEUTROPHIL # 5.2 TH/MM3 (1.8-7.7); BASOPHIL % 0.6 % (0.0-2.0); EOSINOPHIL # 0.2 TH/MM3 (0-0.4); EOSINOPHIL % 2.3 % (0.0-4.0); HEMATOCRIT 38.4 % (39.0-51.0); HEMO FLAGS DIFF FINAL; LYMPH % 6.5 % (9.0-44.0); LYMPHOCYTE # 0.4 TH/MM3 (1.0-4.8); MEAN CELL VOLUME 93.1 FL (80.0-100.0); MEAN CORPUSCULAR HEMOGLOBIN 31.5 PG (27.0-34.0); MEAN CORPUSCULAR HGB CONC 33.9 % (32.0-36.0); NEUT % 77.6 % (16.0-70.0); PLATELET COUNT 296 TH/MM3 (150-450); RED BLOOD COUNT 4.12 MIL/MM3 (4.50-5.90); RED CELL DISTRIBUTION WIDTH 13.2 % (11.6-17.2); WHITE BLOOD COUNT 6.6 TH/MM3 (4.0-11.0)
[2016-07-21 05:37] LABS: BICARBONATE 25.6 MEQ/L (21.0-32.0); POTASSIUM 3.5 MEQ/L (3.5-5.1)
[2016-07-21 08:00] VITALS: BP 136/88; PULSE 101; RESP 20; TEMP 97; O2SAT 96
--- NOTE | 2016-07-21 08:45 | HHI.FPPN ---
Subjective Remarks FM Attending Note: Patient seen and examined. S: Chart and all resident physician notes reviewed. In summary this is a 50 year old male who was admitted with an admission diagnosis of Esophageal Stricture Or Obstruction. This patient has a past medical history significant for 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 He was sent to the hospital from his oncologist office due to increased difficulty swallowing. He has received radiation Tx and one chemotx treatment. He has required dilation in the past and is also to have placeemnt of a PEG tube to help better maintain nutritional status during treatment. Due to the presence of the esophageal mass GI is unable to place PEG tube. IR has evaluated patient and is recommending consutation of general surgery for placement of the PEG tube. Objective Vitals Vital Signs Date Time Temp Pulse Resp B/P Pulse Ox O2 Delivery O2 Flow Rate FiO2 07/21/16 08:00 97.0 101 20 136/88 96 07/21/16 04:00 98.2 98 19 129/89 97 07/21/16 00:00 98.0 95 17 128/84 98 07/20/16 20:00 97.6 98 19 141/88 97 07/20/16 17:00 98.1 93 20 151/91 99 Room Air 07/20/16 16:45 95 20 121/82 99 Room Air 07/20/16 16:30 93 20 144/87 100 Room Air 07/20/16 16:15 92 20 157/99 100 Room Air 07/20/16 16:00 91 20 155/100 100 Room Air 07/20/16 15:45 92 20 144/95 100 Room Air 07/20/16 15:30 91 20 146/91 100 Room Air 07/20/16 15:15 93 20 108/73 100 Nasal Cannula 2 07/20/16 15:09 98.3 96 20 122/84 100 Nasal Cannula 2 07/20/16 14:59 99 21 07/20/16 12:00 88 16 137/88 100 Room Air 07/20/16 10:17 104 18 07/20/16 10:06 97.8 107 16 110/73 97 I/O 07/20/16 07/20/16 07/20/16 07/21/16 07/21/16 07/21/16 06:59 14:59 22:59 06:59 14:59 22:59 Intake Total 943 ml 362 ml 0 ml Output Total 10 ml Balance 933 ml 362 ml 0 ml Intake Oral 120 ml 0 ml IV Total 223 ml 362 ml Other 600 ml Output Estimated Blood Loss 10 ml # Voids 0 1 # Bowel Movements 0 Result Diagram: 07/21/16 0430 07/21/16 0430 Other Results Item Value Date Time Total Bilirubin 0.6 MG/DL 07/20/16 1144 Aspartate Amino Transf (AST/SGOT) 22 U/L 07/20/16 1144 Alanine Aminotransferase (ALT/SGPT) 19 U/L 07/20/16 1144 Alkaline Phosphatase 119 U/L H 07/20/16 1144 Prothrombin Time 10.7 SEC 07/20/16 1144 Activated Partial Thromboplast Time 32.9 SEC H 07/20/16 1144 Objective Remarks O. CONSTITUTIONAL/GEN: thin male, in NAD. EYES: conjunctiva normal, PERRLA, EOMI (temporal wasting). LUNGS: clear A-P, respiratory effort is normal. CARDIOVASCULAR: RR without murmur or gallop. No significant edema. GI/ABD: soft without masses, without organomegaly. NEURO: No focal deficits. SKIN: color normal, no rashes noted. HEME/LYMPH: no bruising, petechia or significant adenopathy MUSC: back is normal in appearance. Extremities are normal in appearance. PSYCH/MENTAL STATUS: Alert and oriented x 3. A/P Assessment and Plan This a 50-year-old male with past medical history significant for 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 Being admitted for dysphagia and J-tube placement. Problem List: (1) Dysphagia Status: Acute Plan: Patient is being admitted for dysphagia. This will be the third time he has required EGD with dilation due to stricture. GI is on board and he is being prepared to be taken back to the endoscopy lab. Per patient's oncologist , J-tube is required for the patient. Per discussion with GI and they will be unable to place the J-tube and suggest IR consultation. * Admit to observation * Gastroenterology consulted, recommendations appreciated * Anticipate endoscopy with dilation * Consulted IR for J-tube placement, recommendations appreciated * IV fluids at D5 1/2 NS at 85 MLS per hour * Tylenol 650 mg by mouth every 4 hours when necessary temperature, pain, headache * CBC, BMP ordered for the a.m. * Speech therapy consulted 07/21/16 Now s/p endoscopy with dilation. NPO at this time but did feel his swallowing was somewhat better last night after the procedure. Awaiting gneral surgery evaluation regarding placement of PEG tube. (2) Esophageal cancer Status: Chronic Plan: Patient with stage III gastroesophageal adenocarcinoma. Started chemotherapy 1 week ago. * Consulted oncology, Dr. Wilcox for recommendations during this hospitalization * Chemotherapy per scheduled regimen * J-tube to be placed during this hospitalization 07/21/16 Patient undergoing combination radiation therapy and chemotherapy. (3) Nutrition, metabolism, and development symptoms Status: Acute Plan: Diet: Anticipate soft diet following endoscopy with dilation Fluids: IV fluids as above Vitals every 4 Out of bed ad ted. Monitor electrolytes place coronary DVT prophylaxis with SCDs holding pharmacological prophylaxis for possible J- tube placement CODE STATUS: Full code Disposition: Following J-tube placement Jai Carl MD July 21, 2016 08:45
[2016-07-21] MEDS: NICOTINE 21 MG/24 HR PATCH T-DERMAL SCH (08:48)
[2016-07-21] MEDS: SODIUM CHLORIDE 0.9% FLUSH 10 ML FLUSH IV FLUSH SCH ×2 (08:49→19:56)
--- NOTE | 2016-07-21 10:45 | PD.ONC.PN ---
Subjective Subjective Remarks Afebrile overnight. Patient tolerated EGD yesterday. He has not yet tried foods as he is NPO for J-tube placement today. He denies pain. Objective Data Date Time Temp Pulse Resp B/P Pulse Ox O2 Delivery O2 Flow Rate FiO2 07/21/16 08:00 97.0 101 20 136/88 96 07/21/16 04:00 98.2 98 19 129/89 97 07/21/16 00:00 98.0 95 17 128/84 98 07/20/16 20:00 97.6 98 19 141/88 97 07/20/16 17:00 98.1 93 20 151/91 99 Room Air 07/20/16 16:45 95 20 121/82 99 Room Air 07/20/16 16:30 93 20 144/87 100 Room Air 07/20/16 16:15 92 20 157/99 100 Room Air 07/20/16 16:00 91 20 155/100 100 Room Air 07/20/16 15:45 92 20 144/95 100 Room Air 07/20/16 15:30 91 20 146/91 100 Room Air 07/20/16 15:15 93 20 108/73 100 Nasal Cannula 2 07/20/16 15:09 98.3 96 20 122/84 100 Nasal Cannula 2 07/20/16 14:59 99 21 07/20/16 12:00 88 16 137/88 100 Room Air 07/21/16 07/21/16 07/21/16 07:00 15:00 23:00 Intake Total 362 ml 0 ml Balance 362 ml 0 ml Result Diagram: 07/21/16 0430 07/21/16 0430 Laboratory Results Laboratory Tests Test 07/20/16 07/21/16 11:44 04:30 Prothrombin Time 10.7 SEC Prothromb Time International 1.0 RATIO Ratio Activated Partial 32.9 SEC Thromboplast Time Sodium Level 136 MEQ/L 137 MEQ/L Potassium Level 4.2 MEQ/L 3.5 MEQ/L Chloride Level 99 MEQ/L 103 MEQ/L Carbon Dioxide Level 27.5 MEQ/L 25.6 MEQ/L Anion Gap 10 MEQ/L 8 MEQ/L Blood Urea Nitrogen 13 MG/DL 9 MG/DL Creatinine 0.55 MG/DL 0.40 MG/DL Estimat Glomerular Filtration 158 ML/MIN 228 ML/MIN Rate Random Glucose 91 MG/DL 97 MG/DL Calcium Level 9.5 MG/DL 8.6 MG/DL Total Bilirubin 0.6 MG/DL Aspartate Amino Transf 22 U/L (AST/SGOT) Alanine Aminotransferase 19 U/L (ALT/SGPT) Alkaline Phosphatase 119 U/L Total Protein 7.7 GM/DL Albumin 3.5 GM/DL White Blood Count 6.6 TH/MM3 Red Blood Count 4.12 MIL/MM3 Hemoglobin 13.0 GM/DL Hematocrit 38.4 % Mean Corpuscular Volume 93.1 FL Mean Corpuscular Hemoglobin 31.5 PG Mean Corpuscular Hemoglobin 33.9 % Concent Red Cell Distribution Width 13.2 % Platelet Count 296 TH/MM3 Mean Platelet Volume 8.0 FL Neutrophils (%) (Auto) 77.6 % Lymphocytes (%) (Auto) 6.5 % Monocytes (%) (Auto) 13.0 % Eosinophils (%) (Auto) 2.3 % Basophils (%) (Auto) 0.6 % Neutrophils # (Auto) 5.2 TH/MM3 Lymphocytes # (Auto) 0.4 TH/MM3 Monocytes # (Auto) 0.9 TH/MM3 Eosinophils # (Auto) 0.2 TH/MM3 Basophils # (Auto) 0.0 TH/MM3 CBC Comment DIFF FINAL Differential Comment Administered Medications Medications (Trade) Dose Ordered Sig/Ezra Route PRN Reason Start Time Stop Time Status Last Admin Dose Admin Potassium Chloride/Dextrose/ Sod Cl (D5-1/2 NS + KCl 20 Meq Inj) 1,000 ml @ 85 mls/hr [id number] IV 07/20/16 14:11 07/20/16 14:11 Sodium Chloride (NS Flush) 2 ml BID IV FLUSH 07/20/16 21:00 07/21/16 08:49 Acetaminophen (Tylenol) 650 mg Q4H PRN PO TEMP>101F, PAIN 1-10, HEADACHE 07/20/16 14:15 07/20/16 17:21 Nicotine (Habitrol 21 Mg Patch.24 Hr) 1 patch DAILY T-DERMAL 07/20/16 16:45 07/20/16 17:22 Miscellaneous Information 1 HS T-DERMAL 07/20/16 21:00 07/20/16 20:26 Objective Remarks GENERAL:Middle aged male, cachetic, lying supine in bed, appears comfortable. SKIN: Warm and dry. HEAD: Normocephalic. EYES: o injection or drainage. NECK: Supple, trachea midline. CARDIOVASCULAR: Regular rate and rhythm RESPIRATORY: Breath sounds equal bilaterally. No accessory muscle use. GASTROINTESTINAL: Abdomen soft, non-tender, nondistended. EXTREMITIES: No cyanosis NEUROLOGICAL: awake and alert, normal speech. moving extremities. Assessment/Plan Problem List: (1) Dysphagia Status: Acute Plan: --Dysphagia secondary to malignancy. Also esophagitis from radiation and chemotherapy. This patient needs to have a J tube placement. --had issues with insurance and was not able to have a J tube placed outpatient. --will need surgery or GI to assist in placing a J tube. --dietary consulted --s/p EGD with dilation on 07/20. 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 currently undergoing concurrent chemotherapy and radiation treatments. --presented with dysphagia in early April of 2016 and EGD was performed which showed large amount of food stuck in the esophagus which was removed. There was a an esophageal mass. Biopsy confirmed a poorly differentiated adenocarcinoma with focal mucinous features. There was significant wall thickening involving the lower thoracic esophagus. He underwent an endoscopic ultrasound which showed a large tumor penetrating the cardia and abutting the aorta but not invading the aorta. A PET scan was performed which did not show any distal metastatic disease. Due to insurance issues the patient has not been able to have a J-tube placed prior to his chemo radiation treatments. The patient today presented to the radiation oncology clinic and was feeling unwell. He has been unable to swallow any food. He has not been able to drink any fluids either. He appeared to be quite weak and cachectic. The patient was sent to the emergency department. He is now being admitted to the hospital. Plan 1. consult Dr. Reis --patient needs J-tube placement 2. continue fluid support 3. await health sciences program coordinator recommendations Attending Statement The exam, history, and the medical decision-making described in the above note were completed with the assistance of the mid-level provider. I reviewed and agree with the findings presented. I attest that I had a [id number] encounter with the patient on the same day, and personally performed and documented my assessment and findings in the medical record Cheryl Bardales July 21, 2016 10:45 Josef Wilcox MD July 21, 2016 23:12
[2016-07-21 12:00] VITALS: BP 122/65; PULSE 103; RESP 19; TEMP 96.9; O2SAT 98
--- NOTE | 2016-07-21 15:16 | MB ---
cc: JERMAN DELGADO AWAIS DATE OF CONSULTATION: 07/21/2016 REASON FOR CONSULTATION T4a esophageal cancer with obstruction, consultation for enteric feeding access. HISTORY OF PRESENT ILLNESS The patient is a 50-year-old male with stage III, T4a,N0 esophageal adenocarcinoma. The patient has no evidence of metastatic disease on staging scans. The patient is currently undergoing chemoradiation but unfortunately has developed weight loss of approximately 15 pounds over the last three weeks and increasing dysphagia. The patient has undergone multiple endoscopies with dilations, however, this has been refractory to these treatments. The patient required admission for rehydration and supportive care. The patient also had an endoscopic ultrasound which showed a large tumor penetrating the cardia and abutting the aorta but not invading the aorta. A PET scan showed no distant metastatic disease. The patient currently is only able to tolerate some very thin liquids in small amounts but is able to clear his saliva. The patient has no pain at this time. REVIEW OF SYSTEMS A 12-point review of systems discussed with the patient is negative except for the pertinent positives mentioned above in the history of present illness. PAST MEDICAL HISTORY None other than esophageal adenocarcinoma as above. PAST SURGICAL HISTORY 1. Appendectomy. 2. Port placement. FAMILY HISTORY No history of GI malignancy. ALLERGIES No known drug allergies. MEDICATIONS 1. Nicotine patch. 2. Tylenol. 3. Zofran. 4. Ambien. 5. Colace. 6. Milk of Magnesia. 7. Lactulose. SOCIAL HISTORY The patient has a history of tobacco use. Denies alcohol or illicit drug use. PHYSICAL EXAMINATION VITAL SIGNS: Temperature 96.9 degrees, heart rate 103, blood pressure 122/65. GENERAL: The patient is a thin, cachectic, chronically ill-appearing male in no acute distress. HEENT: Head is normocephalic, atraumatic. Pupils round and reactive to light. Sclera anicteric. Mucous membranes are moist. NECK: Supple. No JVD. LUNGS: Clear to auscultation bilaterally. Nonlabored breathing pattern. HEART: Regular rate and rhythm. No murmurs. ABDOMEN: Soft, scaphoid, nontender to palpation. No organomegaly. No ascites. No hernias. Normal bowel sounds. BACK: No CVA tenderness. EXTREMITIES: No clubbing, cyanosis or edema. NEUROLOGIC: The patient is alert and oriented x3. Nonfocal peripheral exam. Cranial nerves II through XII are grossly intact. LABORATORY VALUES White blood cell count 6.6, hemoglobin 13. INR 1.0. Albumin 3.5. ASSESSMENT AND PLAN The patient is a 50-year-old male with distal esophageal adenocarcinoma, T4a,N0,M0, with significant dysphagia and significant weight loss. I had a discussion with the patient, his and daughter about possible enteric access including TPN, jejunostomy tube as well as gastrostomy tube. I do recommend proceeding with a staging laparoscopy followed by possible gastrostomy tube placement or possible jejunostomy tube placement. The patient is free of metastatic disease and is a likely surgical candidate. Would prefer to place a laparoscopic jejunostomy tube to avoid possible complication to the stomach and possible future conduit. However, if the patient is found to be amenable to gastrostomy tube based on his anatomy or based on the presence of metastatic disease, we could consider gastrostomy tube which will be more easy to care for at home than a jejunostomy tube. I discussed this with him and answered the rationale for this and answered all their questions. We also discussed esophageal cancer as well as the staging and treatment outcomes, and briefly discussed [facility] Froy esophagectomy as possible treatment based on response to his chemotherapy. We will plan jejunostomy tube likely Tuesday based on operating room availability and will continue to follow along with the patient. Thank you very much for this consultation MD KLEVER Soto/CAHCE /1:45 PM /3:00 PM
[2016-07-21 16:00] VITALS: BP 140/87; PULSE 107; RESP 20; TEMP 97.3; O2SAT 99
--- NOTE | 2016-07-21 16:42 | HHI.GIFU ---
Subjective Remarks Pt resting comfortably in bed, says he is now able to eat. He is awaiting GJ tube installation. (Danita Hinkle) Objective Vitals I&O Vital Signs Date Time Temp Pulse Resp B/P Pulse Ox O2 Delivery O2 Flow Rate FiO2 07/21/16 12:00 96.9 103 19 122/65 98 07/21/16 08:00 97.0 101 20 136/88 96 07/21/16 04:00 98.2 98 19 129/89 97 07/21/16 00:00 98.0 95 17 128/84 98 07/20/16 20:00 97.6 98 19 141/88 97 07/20/16 17:00 98.1 93 20 151/91 99 Room Air 07/20/16 16:45 95 20 121/82 99 Room Air I/O 07/20/16 07/20/16 07/20/16 07/21/16 07/21/16 07/21/16 07:00 15:00 23:00 07:00 15:00 23:00 Intake Total 943 ml 362 ml 0 ml Output Total 10 ml 900 ml Balance 933 ml 362 ml -900 ml Intake Oral 120 ml 0 ml IV Total 223 ml 362 ml Other 600 ml Output Urine Total 700 ml Stool Total 200 ml Estimated Blood Loss 10 ml # Voids 0 1 # Bowel Movements 0 Laboratory Laboratory Tests Test 07/21/16 04:30 White Blood Count 6.6 Red Blood Count 4.12 Hemoglobin 13.0 Hematocrit 38.4 Mean Corpuscular Volume 93.1 Mean Corpuscular Hemoglobin 31.5 Mean Corpuscular Hemoglobin 33.9 Concent Red Cell Distribution Width 13.2 Platelet Count 296 Mean Platelet Volume 8.0 Neutrophils (%) (Auto) 77.6 Lymphocytes (%) (Auto) 6.5 Monocytes (%) (Auto) 13.0 Eosinophils (%) (Auto) 2.3 Basophils (%) (Auto) 0.6 Neutrophils # (Auto) 5.2 Lymphocytes # (Auto) 0.4 Monocytes # (Auto) 0.9 Eosinophils # (Auto) 0.2 Basophils # (Auto) 0.0 CBC Comment DIFF FINAL Differential Comment Sodium Level 137 Potassium Level 3.5 Chloride Level 103 Carbon Dioxide Level 25.6 Anion Gap 8 Blood Urea Nitrogen 9 Creatinine 0.40 Estimat Glomerular Filtration 228 Rate Random Glucose 97 Calcium Level 8.6 Physical Exam HEENT: Pupils round and reactive to light; normocephalic; atraumatic; no jaundice. CHEST: CTA CARDIAC: RRR ABDOMEN: Soft, emaciated, nontender; no hepatosplenomegaly; bowel sounds are present in all four quadrants. EXTREMITIES: No clubbing, cyanosis, or edema. SKIN: Normal; no rash; no jaundice. ADOBE DEVELOPER: No focal deficits; alert and oriented times three. (Danita Hinkle) Assessment and Plan Plan ASSESSMENT - dysphagia, odynophagia - improved after EGD with balloon dilation 07-20-16 --> white exudate c/w candidiasis mid esophagus, near circumferential mass distal esophagus, ulcerated tumor extending from esophagus. ongoing problem since April, has had several EGD/dil. In last 10 days pt having difficulty consuming more than few sips of ensure, has trouble swallowing water, has pain with swallowing. Last was 06-23-16 EGD/EUS---> stricturing at level of cardia 2/2 malignancy s/p dilation and EUS staging cancer cardia stage T4aNx, gastric body nodule probably extension of tumor. - esophageal cancer - stage 3 primary esophageal cancer. PLAN - await pathology - further recommendations to follow procedure This pt seen by myself and Dr Khalil and this note is written on his behalf ( Danita Hinkle) Physician Comments Seen and examined, plan as above, will follow up with you after the tube insertion. (Francisco Khalil MD) Danita Hinkle July 21, 2016 16:42 Francisco Khalil MD Jul 22, 2016 07:09
[2016-07-21] MEDS: REMOVE OLD PATCH T-DERMAL SCH (19:57)
[2016-07-21 20:00] VITALS: BP 146/94; PULSE 88; RESP 22; TEMP 97.7; O2SAT 98
[2016-07-22] VITALS: BP 153/95; PULSE 89; RESP 20; TEMP 97.5; O2SAT 99
[2016-07-22] MEDS: D5-1/2 NS + KCL 20 MEQ INJ 1,000 ML IV SCH ×3 (01:36→14:42)
[2016-07-22 04:00] VITALS: BP 137/93; PULSE 94; RESP 20; TEMP 96.8; O2SAT 98
[2016-07-22 06:01] LABS: HEMATOCRIT 38.4 % (39.0-51.0); MEAN CELL VOLUME 93.1 FL (80.0-100.0); MEAN CORPUSCULAR HEMOGLOBIN 31.5 PG (27.0-34.0); MEAN CORPUSCULAR HGB CONC 33.9 % (32.0-36.0); PLATELET COUNT 292 TH/MM3 (150-450); RED BLOOD COUNT 4.13 MIL/MM3 (4.50-5.90); RED CELL DISTRIBUTION WIDTH 13.2 % (11.6-17.2); REVIEW FLAG FINAL; WHITE BLOOD COUNT 7.4 TH/MM3 (4.0-11.0)
[2016-07-22 06:19] LABS: BICARBONATE 25.4 MEQ/L (21.0-32.0); POTASSIUM 3.5 MEQ/L (3.5-5.1)
[2016-07-22 08:00] VITALS: BP 121/90; PULSE 95; RESP 18; TEMP 96.4; O2SAT 99
--- NOTE | 2016-07-22 08:25 | HHI.FPPN ---
Subjective Remarks Patient seen and examined this morning. Afebrile vital signs stable. Patient has been eating a full liquid diet and tolerating it fine. He is complaining of some gas type pain in his belly. It is only slightly improved from last night. He understands the plan is to go to the OR on Tuesday07/23/16. Endorses: Gas Denies: Fever, chills, nausea, vomiting, shortness of breath, chest pain, headache, abdominal pain, calf pain (Marc Carrillo MD R2) Objective Vitals Vital Signs Date Time Temp Pulse Resp B/P Pulse Ox O2 Delivery O2 Flow Rate FiO2 07/22/16 04:00 96.8 94 20 137/93 98 07/22/16 00:00 97.5 89 20 153/95 99 07/21/16 20:00 97.7 88 22 146/94 98 07/21/16 16:00 97.3 107 20 140/87 99 07/21/16 12:00 96.9 103 19 122/65 98 I/O 07/21/16 07/21/16 07/21/16 07/22/16 07/22/16 07/22/16 07:00 15:00 23:00 07:00 15:00 23:00 Intake Total 362 ml 0 ml 1279 ml 870 ml Output Total 900 ml 350 ml Balance 362 ml -900 ml 929 ml 870 ml Intake Oral 0 ml 240 ml 240 ml IV Total 362 ml 1039 ml 630 ml Output Urine Total 700 ml 350 ml Stool Total 200 ml # Voids 1 2 # Bowel Movements 0 0 (Marc Carrillo MD R2) Result Diagram: 07/22/16 0510 07/22/16 0510 Objective Remarks O. CONSTITUTIONAL/GEN: thin male, in NAD. EYES: conjunctiva normal, PERRLA, EOMI (temporal wasting). LUNGS: clear A-P, respiratory effort is normal. CARDIOVASCULAR: RR without murmur or gallop. No significant edema. GI/ABD: soft without masses, without organomegaly. NEURO: No focal deficits. SKIN: color normal, no rashes noted. HEME/LYMPH: no bruising, petechia or significant adenopathy MUSC: back is normal in appearance. Extremities are normal in appearance. PSYCH/MENTAL STATUS: Alert and oriented x 3. Medications and IVs Current Medications Medications (Trade) Dose Ordered Sig/Ezra Route Start Time Stop Time Status Last Admin (D5-1/2 NS + KCl 20 Meq Inj) 1,000 ml @ 85 mls/hr [id number] IV 07/20/16 14:11 07/22/16 01:36 (NS Flush) 2 ml UNSCH PRN IV FLUSH 07/20/16 14:15 (NS Flush) 2 ml BID IV FLUSH 07/20/16 21:00 07/21/16 08:49 (Tylenol) 650 mg Q4H PRN PO 07/20/16 14:15 07/20/16 17:21 (Zofran Inj) 4 mg Q6H PRN IVP 07/20/16 14:15 (Ambien) 5 mg HS PRN PO 07/20/16 14:15 (Narcan Inj) 0.4 mg UNSCH PRN IV 07/20/16 14:15 (Zofia-Colace) 1 tab BID PRN PO 07/20/16 14:15 (Milk Of Magnesia Liq) 30 ml Q12H PRN PO 07/20/16 14:15 (Senokot) 17.2 mg Q12H PRN PO 07/20/16 14:15 (Dulcolax Supp) 10 mg DAILY PRN RECTAL 07/20/16 14:15 (Lactulose Liq) 30 ml DAILY PRN PO 07/20/16 14:15 (Habitrol 21 Mg Patch.24 Hr) 1 patch DAILY T-DERMAL 07/20/16 16:45 07/20/16 17:22 Miscellaneous Information 1 HS T-DERMAL 07/20/16 21:00 07/20/16 20:26 (Marc Carrillo MD R2) A/P Assessment and Plan This a 50-year-old male with past medical history significant for 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 Being admitted for dysphagia and J-tube placement. Discharge Planning After placement of J-tube (Marc Carrillo MD R2) Attending Attestation Case reviewed and discussed with the resident team. Agree with plan of care as discussed with me and documented in the resident note. (Jai Carl MD) Problem List: (1) Dysphagia Status: Acute Plan: Patient's dysphagia has improved with EGD and dilation. Neurosurgery has seen the patient and planned to take him to the OR on Tuesday07/23/16 for possible J-tube versus PEG tube placement * Admit to observation * Gastroenterology consulted, recommendations appreciated * Gen. surgery consulted, recommendations appreciated * IV fluids at D5 1/2 NS at 85 MLS per hour * Tylenol 650 mg by mouth every 4 hours when necessary temperature, pain, headache * CBC, BMP ordered for the a.m. (2) Esophageal cancer Status: Chronic Plan: Patient with stage III gastroesophageal adenocarcinoma. Started chemotherapy 1 week ago. * Consulted oncology, Dr. Wilcox for recommendations during this hospitalization * Chemotherapy per scheduled regimen * J-tube to be placed during this hospitalization 07/21/16 Patient undergoing combination radiation therapy and chemotherapy. (3) Nutrition, metabolism, and development symptoms Status: Acute Plan: Diet: Full liquid diet Fluids: IV fluids as above Vitals every 4 Out of bed ad ted. Monitor electrolytes place coronary DVT prophylaxis with SCDs holding pharmacological prophylaxis for possible J- tube placement CODE STATUS: Full code Disposition: Following J-tube or PEG tube placement (Marc Carrillo MD R2) Problem Qualifiers (1) Esophageal cancer: Qualified Code: C15.9 - Malignant neoplasm of esophagus, unspecified location Marc Carrillo MD R2 Jul 22, 2016 08:25 Jai Carl MD Jul 22, 2016 12:08
[2016-07-22] MEDS ORDERED: SIMETHICONE 80 MG CHEWABLE TAB CHEW PRN (08:30)
[2016-07-22] MEDS: SODIUM CHLORIDE 0.9% FLUSH 10 ML FLUSH IV FLUSH SCH ×2 (09:00→19:53)
[2016-07-22] MEDS: PANTOPRAZOLE SODIUM 40 MG VIAL IV PUSH SCH ×2 (09:00→09:04)
[2016-07-22] MEDS: NICOTINE 21 MG/24 HR PATCH T-DERMAL SCH (09:00)
--- NOTE | 2016-07-22 10:45 | PD.ONC.PN ---
Subjective Subjective Remarks Afebrile overnight. Patient resting comfortably in bed in nad. Last night he discussed laparoscopy with possible J-tube placement this Tuesday. He would like to take a shower today. Drank some coffee and ate some crackers and cookies this morning without pain or difficulty. Objective Data Date Time Temp Pulse Resp B/P Pulse Ox O2 Delivery O2 Flow Rate FiO2 07/22/16 08:00 96.4 95 18 121/90 99 07/22/16 04:00 96.8 94 20 137/93 98 07/22/16 00:00 97.5 89 20 153/95 99 07/21/16 20:00 97.7 88 22 146/94 98 07/21/16 16:00 97.3 107 20 140/87 99 07/21/16 12:00 96.9 103 19 122/65 98 07/22/16 07/22/16 07/22/16 07:00 15:00 23:00 Intake Total 870 ml Balance 870 ml Result Diagram: 07/22/16 0510 07/22/16 0510 Laboratory Results Laboratory Tests Test 07/22/16 05:10 White Blood Count 7.4 TH/MM3 Red Blood Count 4.13 MIL/MM3 Hemoglobin 13.0 GM/DL Hematocrit 38.4 % Mean Corpuscular Volume 93.1 FL Mean Corpuscular Hemoglobin 31.5 PG Mean Corpuscular Hemoglobin 33.9 % Concent Red Cell Distribution Width 13.2 % Platelet Count 292 TH/MM3 Mean Platelet Volume 8.0 FL Sodium Level 134 MEQ/L Potassium Level 3.5 MEQ/L Chloride Level 99 MEQ/L Carbon Dioxide Level 25.4 MEQ/L Anion Gap 10 MEQ/L Blood Urea Nitrogen 5 MG/DL Creatinine 0.32 MG/DL Estimat Glomerular Filtration 295 ML/MIN Rate Random Glucose 101 MG/DL Calcium Level 8.7 MG/DL Administered Medications Medications (Trade) Dose Ordered Sig/Ezra Route PRN Reason Start Time Stop Time Status Last Admin Dose Admin Potassium Chloride/Dextrose/ Sod Cl (D5-1/2 NS + KCl 20 Meq Inj) 1,000 ml @ 85 mls/hr [id number] IV 07/20/16 14:11 07/22/16 01:36 Sodium Chloride (NS Flush) 2 ml BID IV FLUSH 07/20/16 21:00 07/21/16 08:49 Acetaminophen (Tylenol) 650 mg Q4H PRN PO TEMP>101F, PAIN 1-10, HEADACHE 07/20/16 14:15 07/20/16 17:21 Nicotine (Habitrol 21 Mg Patch.24 Hr) 1 patch DAILY T-DERMAL 07/20/16 16:45 07/20/16 17:22 Miscellaneous Information 1 HS T-DERMAL 07/20/16 21:00 07/20/16 20:26 Pantoprazole Sodium (Protonix Inj) 40 mg DAILY IV PUSH 07/22/16 08:30 07/22/16 09:04 Objective Remarks GENERAL: cachetic male sitting upright in bed in nad. SKIN: Warm and dry. HEAD: Normocephalic. EYES: no injection or drainage. NECK: Supple, trachea midline. CARDIOVASCULAR: Regular rate and rhythm RESPIRATORY: Breath sounds equal bilaterally. No accessory muscle use. GASTROINTESTINAL: Abdomen soft, non-tender, nondistended. EXTREMITIES: No cyanosis NEUROLOGICAL: awake and alert, normal speech. moving extremities. Assessment/Plan Problem List: (1) Dysphagia Status: Acute Plan: --Dr. Reis following and plans for laparoscopy and J-tube placement. --Dysphagia secondary to malignancy. Also esophagitis from radiation and chemotherapy. This patient needs to have a J tube placement. --had issues with insurance and was not able to have a J tube placed outpatient. 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 currently undergoing concurrent chemotherapy and radiation treatments. --presented with dysphagia in early April of 2016 and EGD was performed which showed large amount of food stuck in the esophagus which was removed. There was a an esophageal mass. Biopsy confirmed a poorly differentiated adenocarcinoma with focal mucinous features. There was significant wall thickening involving the lower thoracic esophagus. He underwent an endoscopic ultrasound which showed a large tumor penetrating the cardia and abutting the aorta but not invading the aorta. A PET scan was performed which did not show any distal metastatic disease. Due to insurance issues the patient has not been able to have a J-tube placed prior to his chemo radiation treatments. The patient today presented to the radiation oncology clinic and was feeling unwell. He has been unable to swallow any food. He has not been able to drink any fluids either. He appeared to be quite weak and cachectic. The patient was sent to the emergency department. He is now being admitted to the hospital. Plan 1.continue supportive care with IVF 2. order shower 3. laparoscopy with J-tube placement Tuesday Attending Statement The exam, history, and the medical decision-making described in the above note were completed with the assistance of the mid-level provider. I reviewed and agree with the findings presented. I attest that I had a [id number] encounter with the patient on the same day, and personally performed and documented my assessment and findings in the medical record Cheryl Bardales Jul 22, 2016 10:45 Josef Wilcox MD Jul 22, 2016 22:41
[2016-07-22 12:00] VITALS: BP 151/94; PULSE 101; RESP 18; TEMP 96.9; O2SAT 99
--- NOTE | 2016-07-22 14:38 | HHI.GIFU ---
Subjective Remarks Pt resting in bed. C/o abdominal discomfort feels like gas. No other complaints. (Danita Hinkle) Objective Vitals I&O Vital Signs Date Time Temp Pulse Resp B/P Pulse Ox O2 Delivery O2 Flow Rate FiO2 07/22/16 12:00 96.9 101 18 151/94 99 07/22/16 08:00 96.4 95 18 121/90 99 07/22/16 04:00 96.8 94 20 137/93 98 07/22/16 00:00 97.5 89 20 153/95 99 07/21/16 20:00 97.7 88 22 146/94 98 07/21/16 16:00 97.3 107 20 140/87 99 I/O 07/21/16 07/21/16 07/21/16 07/22/16 07/22/16 07/22/16 07:00 15:00 23:00 07:00 15:00 23:00 Intake Total 362 ml 0 ml 1279 ml 870 ml Output Total 900 ml 350 ml Balance 362 ml -900 ml 929 ml 870 ml Intake Oral 0 ml 240 ml 240 ml IV Total 362 ml 1039 ml 630 ml Output Urine Total 700 ml 350 ml Stool Total 200 ml # Voids 1 2 3 # Bowel Movements 0 0 Laboratory Laboratory Tests Test 07/22/16 05:10 White Blood Count 7.4 Red Blood Count 4.13 Hemoglobin 13.0 Hematocrit 38.4 Mean Corpuscular Volume 93.1 Mean Corpuscular Hemoglobin 31.5 Mean Corpuscular Hemoglobin 33.9 Concent Red Cell Distribution Width 13.2 Platelet Count 292 Mean Platelet Volume 8.0 Sodium Level 134 Potassium Level 3.5 Chloride Level 99 Carbon Dioxide Level 25.4 Anion Gap 10 Blood Urea Nitrogen 5 Creatinine 0.32 Estimat Glomerular Filtration 295 Rate Random Glucose 101 Calcium Level 8.7 Physical Exam HEENT: Pupils round and reactive to light; normocephalic; atraumatic; no jaundice. CHEST: CTA CARDIAC: RRR ABDOMEN: Soft, emaciated, nontender; no hepatosplenomegaly; bowel sounds are present in all four quadrants. EXTREMITIES: No clubbing, cyanosis, or edema. SKIN: Normal; no rash; no jaundice. AUTOMATIC EDGER: No focal deficits; alert and oriented times three. (Danita Hinkle) Assessment and Plan Plan ASSESSMENT - dysphagia, odynophagia - improved after EGD with balloon dilation 07-20-16 --> white exudate c/w candidiasis mid esophagus, near circumferential mass distal esophagus, ulcerated tumor extending from esophagus. ongoing problem since April, has had several EGD/dil. In last 10 days pt having difficulty consuming more than few sips of ensure, has trouble swallowing water, has pain with swallowing. Last was 06-23-16 EGD/EUS---> stricturing at level of cardia 2/2 malignancy s/p dilation and EUS staging cancer cardia stage T4aNx, gastric body nodule probably extension of tumor. - esophageal cancer - stage 3 primary esophageal cancer. PLAN - await pathology - await GJ placement - further recommendations to follow procedure This pt seen by myself and Dr Khalil and this note is written on his behalf ( Danita Hinkle) Physician Comments Doing well and tolerating fluids well, will advance his diet to soft ( cleared by speech) Will sign off for now, please notify us if needed. (Francisco Khalil MD) Danita Hinkle Jul 22, 2016 14:38 Francisco Khalil MD Jul 22, 2016 22:42
[2016-07-22 16:00] VITALS: BP 141/97; PULSE 89; RESP 18; TEMP 98; O2SAT 97
--- NOTE | 2016-07-22 17:36 | HHI.PR ---
Subjective Subjective Notes Resting in bed No issues overnight No advanced to soft diet Objective Vitals/I&O Vital Signs Date Time Temp Pulse Resp B/P Pulse Ox O2 Delivery O2 Flow Rate FiO2 07/22/16 16:00 98.0 89 18 141/97 97 07/20/16 17:00 Room Air 07/20/16 15:15 2 07/20/16 14:59 21 Labs Laboratory Tests Test 07/22/16 05:10 White Blood Count 7.4 Red Blood Count 4.13 Hemoglobin 13.0 Hematocrit 38.4 Mean Corpuscular Volume 93.1 Mean Corpuscular Hemoglobin 31.5 Mean Corpuscular Hemoglobin 33.9 Concent Red Cell Distribution Width 13.2 Platelet Count 292 Mean Platelet Volume 8.0 Sodium Level 134 Potassium Level 3.5 Chloride Level 99 Carbon Dioxide Level 25.4 Anion Gap 10 Blood Urea Nitrogen 5 Creatinine 0.32 Estimat Glomerular Filtration 295 Rate Random Glucose 101 Calcium Level 8.7 Cardiovascular: Regular Lungs: Clear Abdomen: Non-distended, Non-tender Extremities: No edema A/P Assessment and Plan 50 year old male with esophagus cancer with obstruction in need of enteric feeding tube -Plan for OR tomorrow for feeding tube placement -Obtain consents -NPO after MN -Hold all anticoagulation Attending Statement The exam, history, and the medical decision-making described in the above note were completed with the assistance of the mid-level provider. I reviewed and agree with the findings presented. I attest that I had a [id number] encounter with the patient on the same day, and personally performed and documented my assessment and findings in the medical record. discussed the surgery in detail with the patient and family, they agree to proceed with surgery Frances Hendrix Jul 22, 2016 17:36 Martin Reis MD Aug 13, 2016 09:51
[2016-07-22 20:00] VITALS: BP 139/95; PULSE 93; RESP 20; TEMP 97.4; O2SAT 98
[2016-07-22] MEDS: REMOVE OLD PATCH T-DERMAL SCH (21:00)
[2016-07-23] MEDS ORDERED: CHLORHEXIDINE GLUCONATE 2 % 1 PACK (2 CLOTHS) TOPICAL PRN (01:45)
[2016-07-23] MEDS ORDERED: LACTATED RINGER'S 1000 ML IV PRN (01:45)
[2016-07-23 01:58] VITALS: BP 126/80; PULSE 90; RESP 20; TEMP 98; O2SAT 96
[2016-07-23] MEDS: D5-1/2 NS + KCL 20 MEQ INJ 1,000 ML IV SCH ×3 (03:42→21:05)
[2016-07-23 05:32] LABS: HEMATOCRIT 38.2 % (39.0-51.0); MEAN CELL VOLUME 91.5 FL (80.0-100.0); MEAN CORPUSCULAR HEMOGLOBIN 32.1 PG (27.0-34.0); MEAN CORPUSCULAR HGB CONC 35.1 % (32.0-36.0); PLATELET COUNT 304 TH/MM3 (150-450); RED BLOOD COUNT 4.17 MIL/MM3 (4.50-5.90); RED CELL DISTRIBUTION WIDTH 13.2 % (11.6-17.2); REVIEW FLAG FINAL; WHITE BLOOD COUNT 7.6 TH/MM3 (4.0-11.0)
[2016-07-23 06:01] LABS: BICARBONATE 26.3 MEQ/L (21.0-32.0); POTASSIUM 3.5 MEQ/L (3.5-5.1)
[2016-07-23] MEDS ORDERED: BUPIVACAINE/EPINEPHRINE 0.25% PF 10 ML VIAL ONE (07:33)
[2016-07-23 08:00] VITALS: BP 140/95; PULSE 96; RESP 12; TEMP 96.8; O2SAT 97
--- NOTE | 2016-07-23 08:44 | HHI.FPPN ---
Subjective Remarks Patient seen and examined this morning. Afebrile vital signs stable. Patient will be going to the OR today and will be evaluated by general surgery for possible placement of J-tube versus PEG tube. Patient is hoping that the procedure is done today so he can get out of the hospital soon. He says he had a bowel movement today. His only complaint is that he is having some abdominal pain. He denies using the constipation medicine at this time. Endorses: Mild abdominal pain Denies: Fever, chills, nausea, vomiting, shortness of breath, chest pain, headache, calf pain (Marc Carrillo MD R2) Objective Vitals Vital Signs Date Time Temp Pulse Resp B/P Pulse Ox O2 Delivery O2 Flow Rate FiO2 07/23/16 01:58 98.0 90 20 126/80 96 07/22/16 20:00 97.4 93 20 139/95 98 07/22/16 16:00 98.0 89 18 141/97 97 07/22/16 12:00 96.9 101 18 151/94 99 I/O 07/22/16 07/22/16 07/22/16 07/23/16 07/23/16 07/23/16 07:00 15:00 23:00 07:00 15:00 23:00 Intake Total 870 ml 1163 ml 517 ml 657 ml Output Total 350 ml 450 ml Balance 870 ml 1163 ml 167 ml 207 ml Intake Oral 240 ml 480 ml 0 ml 0 ml IV Total 630 ml 683 ml 517 ml 657 ml Output Urine Total 350 ml 450 ml # Voids 2 3 # Bowel Movements 0 0 0 (Marc Carrillo MD R2) Result Diagram: 07/23/16 0449 07/23/16 0449 Objective Remarks O. CONSTITUTIONAL/GEN: thin male, in NAD. EYES: conjunctiva normal, PERRLA, EOMI (temporal wasting). LUNGS: clear A-P, respiratory effort is normal. CARDIOVASCULAR: RR without murmur or gallop. No significant edema. GI/ABD: soft without masses, without organomegaly. NEURO: No focal deficits. SKIN: color normal, no rashes noted. HEME/LYMPH: no bruising, petechia or significant adenopathy MUSC: back is normal in appearance. Extremities are normal in appearance. PSYCH/MENTAL STATUS: Alert and oriented x 3. Medications and IVs Current Medications Medications (Trade) Dose Ordered Sig/Ezra Route Start Time Stop Time Status Last Admin (D5-02/22 NS + KCl 20 Meq Inj) 1,000 ml @ 85 mls/hr [id number] IV 07/20/16 14:11 07/23/16 03:42 (NS Flush) 2 ml UNSCH PRN IV FLUSH 07/20/16 14:15 (NS Flush) 2 ml BID IV FLUSH 07/20/16 21:00 07/21/16 08:49 (Tylenol) 650 mg Q4H PRN PO 07/20/16 14:15 07/20/16 17:21 (Zofran Inj) 4 mg Q6H PRN IVP 07/20/16 14:15 (Ambien) 5 mg HS PRN PO 07/20/16 14:15 07/22/16 21:19 (Narcan Inj) 0.4 mg UNSCH PRN IV 07/20/16 14:15 (Zofia-Colace) 1 tab BID PRN PO 07/20/16 14:15 (Milk Of Magnesia Liq) 30 ml Q12H PRN PO 07/20/16 14:15 (Senokot) 17.2 mg Q12H PRN PO 07/20/16 14:15 (Dulcolax Supp) 10 mg DAILY PRN RECTAL 07/20/16 14:15 (Lactulose Liq) 30 ml DAILY PRN PO 07/20/16 14:15 (Habitrol 21 Mg Patch.24 Hr) 1 patch DAILY T-DERMAL 07/20/16 16:45 07/20/16 17:22 Miscellaneous Information 1 HS T-DERMAL 07/20/16 21:00 07/20/16 20:26 (Protonix Inj) 40 mg DAILY IV PUSH 07/22/16 08:30 07/22/16 09:04 Simethicone 80 mg 80 mg PCHS PRN CHEW 07/22/16 08:30 07/22/16 13:39 (Lr 1000 ml Inj) 1,000 ml @ 30 mls/hr Q24H PRN IV 07/23/16 01:45 07/26/16 01:44 (Marc Carrillo MD R2) A/P Assessment and Plan This a 50-year-old male with past medical history significant for 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 Being admitted for dysphagia and J-tube placement. Discharge Planning After placement of J-tube (Marc Carrillo MD R2) Attending Attestation Case reviewed and discussed with the resident team. Agree with plan of care as discussed with me and documented in the resident note. (Jai Carl MD) Problem List: (1) Dysphagia Status: Acute Plan: Patient's dysphagia has improved with EGD and dilation. Neurosurgery has seen the patient and planned to take him to the OR on Tuesday07/23/16 for possible J-tube versus PEG tube placement * Admit to observation * Gastroenterology consulted, recommendations appreciated * Gen. surgery consulted, recommendations appreciated * IV fluids at D5 1/2 NS at 85 MLS per hour * Tylenol 650 mg by mouth every 4 hours when necessary temperature, pain, headache * CBC, BMP ordered for the a.m. (2) Esophageal cancer Status: Chronic Plan: Patient with stage III gastroesophageal adenocarcinoma. Started chemotherapy 1 week ago. * Consulted oncology, Dr. Wilcox for recommendations during this hospitalization * Chemotherapy per scheduled regimen * J-tube to be placed during this hospitalization 07/21/16 Patient undergoing combination radiation therapy and chemotherapy. (3) Nutrition, metabolism, and development symptoms Status: Acute Plan: Diet: Nothing by mouth for procedure Fluids: IV fluids as above Vitals every 4 Out of bed ad ted. Monitor electrolytes place coronary DVT prophylaxis with SCDs holding pharmacological prophylaxis for possible J- tube placement CODE STATUS: Full code Disposition: Following J-tube or PEG tube placement (Marc Carrillo MD R2) Problem Qualifiers (1) Esophageal cancer: Qualified Code: C15.9 - Malignant neoplasm of esophagus, unspecified location Marc Carrillo MD R2 Jul 23, 2016 08:44 Jai Carl MD Jul 23, 2016 11:49
[2016-07-23] MEDS: NICOTINE 21 MG/24 HR PATCH T-DERMAL SCH (09:00)
[2016-07-23] MEDS: ACETAMINOPHEN 325 MG TAB PO PRN (09:47)
[2016-07-23] MEDS: PANTOPRAZOLE SODIUM 40 MG VIAL IV PUSH SCH (09:47)
[2016-07-23] MEDS: SODIUM CHLORIDE 0.9% FLUSH 10 ML FLUSH IV FLUSH SCH ×2 (09:48→21:04)
[2016-07-23] MEDS ORDERED: FAMOTIDINE 20 MG/2 ML VIAL ONE (10:45)
[2016-07-23] MEDS ORDERED: MIDAZOLAM HCL 2 MG/2 ML VIAL ONE (10:45)
[2016-07-23] MEDS ORDERED: ceFAZolin 2 GM PREMIX 50 ML ONE (10:56)
[2016-07-23] MEDS ORDERED: NEOSTIGMINE 3 MG/3 ML SYR IV ONE (12:00)
[2016-07-23] MEDS ORDERED: PROPOFOL 200 MG/20 ML AMP IV ONE (12:00)
[2016-07-23] MEDS ORDERED: ONDANSETRON HCL 4 MG/2 ML VIAL IV PUSH ONE (12:00)
--- NOTE | 2016-07-23 12:20 | HHI.PR ---
Immediate Post Op Note Procedure Date: Jul 23, 2016 Pre Op Diagnosis: (1) Esophageal cancer Post Op Diagnosis: (1) Adenocarcinoma carcinomatosis (2) Esophageal cancer Surgeon: Martin Reis Slackline Operator(s): staff Procedure: Diagnsotic laparoscopy, laparoscopic peritoneal biopsy, laparoscopic gastrostomy tube Findings: carcinomatosis Complications: none Specimen(s) removed: perineal biopsy Estimated blood loss: 25ml Anesthesia: General, Local Drains: None IVF Patient to: PACU Patient Condition: Good Martin Reis MD Jul 23, 2016 12:19
[2016-07-23] MEDS ORDERED: DO NOT ADM ANY ANTICOAGULANT DRUGS PRN (12:30)
[2016-07-23] MEDS ORDERED: fentaNYL CITRATE 250 MCG/5 ML AMP ONE (12:32)
[2016-07-23 14:17] VITALS: BP 149/99; PULSE 82; RESP 14; TEMP 97.7; O2SAT 100
[2016-07-23] MEDS: HYDROmorphone HCL PF 1 MG/ML VIAL IV PUSH PRN ×5 (15:08→23:03)
[2016-07-23 16:00] VITALS: BP 146/95; PULSE 84; RESP 16; TEMP 96.1; O2SAT 99
[2016-07-23 20:00] VITALS: BP 139/91; PULSE 91; RESP 18; TEMP 97.7; O2SAT 98
--- NOTE | 2016-07-23 20:01 | PD.ONC.PN ---
Subjective Subjective Remarks resting comfortably poor oral intake weak/deconditioned d/w rn d/w surgery Objective Data Date Time Temp Pulse Resp B/P Pulse Ox O2 Delivery O2 Flow Rate FiO2 07/23/16 16:00 96.1 84 16 146/95 99 07/23/16 14:17 97.7 82 14 149/99 100 07/23/16 13:15 80 23 151/99 97 Room Air 07/23/16 13:00 79 23 154/98 97 Room Air 07/23/16 12:45 79 25 157/101 100 Nasal Cannula 2 07/23/16 12:30 75 25 162/104 100 Nasal Cannula 2 07/23/16 12:25 97.9 85 26 178/106 100 Nasal Cannula 2 07/23/16 08:00 96.8 96 12 140/95 97 07/23/16 01:58 98.0 90 20 126/80 96 07/23/16 07/23/16 07/23/16 07:00 15:00 23:00 Intake Total 657 ml 450 ml Output Total 450 ml 25 ml Balance 207 ml 425 ml Result Diagram: 07/23/16 0449 07/23/16 0449 Laboratory Results Laboratory Tests Test 07/23/16 04:49 White Blood Count 7.6 TH/MM3 Red Blood Count 4.17 MIL/MM3 Hemoglobin 13.4 GM/DL Hematocrit 38.2 % Mean Corpuscular Volume 91.5 FL Mean Corpuscular Hemoglobin 32.1 PG Mean Corpuscular Hemoglobin 35.1 % Concent Red Cell Distribution Width 13.2 % Platelet Count 304 TH/MM3 Mean Platelet Volume 7.9 FL Sodium Level 133 MEQ/L Potassium Level 3.5 MEQ/L Chloride Level 99 MEQ/L Carbon Dioxide Level 26.3 MEQ/L Anion Gap 8 MEQ/L Blood Urea Nitrogen 2 MG/DL Creatinine 0.32 MG/DL Estimat Glomerular Filtration 295 ML/MIN Rate Random Glucose 106 MG/DL Calcium Level 9.0 MG/DL Administered Medications Medications (Trade) Dose Ordered Sig/Ezra Route PRN Reason Start Time Stop Time Status Last Admin Dose Admin Potassium Chloride/Dextrose/ Sod Cl (D5-/ NS + KCl 20 Meq Inj) 1,000 ml @ 85 mls/hr [id number] IV 07/20/16 14:11 07/23/16 15:07 Sodium Chloride (NS Flush) 2 ml BID IV FLUSH 07/20/16 21:00 07/23/16 09:48 Acetaminophen (Tylenol) 650 mg Q4H PRN PO TEMP>101F, PAIN 1-10, HEADACHE 07/20/16 14:15 07/23/16 09:47 Zolpidem Tartrate (Ambien) 5 mg HS PRN PO INSOMNIA 07/20/16 14:15 07/22/16 21:19 Nicotine (Habitrol 21 Mg Patch.24 Hr) 1 patch DAILY T-DERMAL 07/20/16 16:45 07/20/16 17:22 Miscellaneous Information 1 HS T-DERMAL 07/20/16 21:00 07/20/16 20:26 Pantoprazole Sodium (Protonix Inj) 40 mg DAILY IV PUSH 07/22/16 08:30 07/23/16 09:47 Simethicone (Mylicon Chew) 80 mg PCHS PRN CHEW GAS RETENTION 07/22/16 08:30 07/22/16 13:39 Hydromorphone HCl (Dilaudid Pf Inj) 0.5 mg Q2H PRN IV PUSH pain 5-10 07/23/16 12:30 07/23/16 19:07 Objective Remarks GENERAL: Well-nourished, well-developed patient. SKIN: Warm and dry. HEAD: Normocephalic. EYES: No scleral icterus. No injection or drainage. NECK: Supple, trachea midline. No JVD or lymphadenopathy. LYMPHATIC: No adenopathy. CARDIOVASCULAR: Regular rate and rhythm without murmurs. RESPIRATORY: Breath sounds equal bilaterally. No accessory muscle use. GASTROINTESTINAL: Abdomen soft, non-tender, nondistended. EXTREMITIES: No cyanosis, or edema. MUSCULOSKELETAL: Adequate muscle tone. NEUROLOGICAL: No obvious focal deficit. Awake, alert, and oriented x3. PSYCHIATRIC: Appropriate mood and affect; insight and judgment normal. Assessment/Plan Problem List: (1) Dysphagia Status: Acute Plan: --Dr. Reis following and plans for laparoscopy and J-tube placement. --Dysphagia secondary to malignancy. Also esophagitis from radiation and chemotherapy. This patient needs to have a J tube placement. --had issues with insurance and was not able to have a J tube placed outpatient. 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 currently undergoing concurrent chemotherapy and radiation treatments. --presented with dysphagia in early April of 2016 and EGD was performed which showed large amount of food stuck in the esophagus which was removed. There was a an esophageal mass. Biopsy confirmed a poorly differentiated adenocarcinoma with focal mucinous features. There was significant wall thickening involving the lower thoracic esophagus. He underwent an endoscopic ultrasound which showed a large tumor penetrating the cardia and abutting the aorta but not invading the aorta. A PET scan was performed which did not show any distal metastatic disease. Due to insurance issues the patient has not been able to have a J-tube placed prior to his chemo radiation treatments. The patient today presented to the radiation oncology clinic and was feeling unwell. He has been unable to swallow any food. He has not been able to drink any fluids either. He appeared to be quite weak and cachectic. The patient was sent to the emergency department. He is now being admitted to the hospital. Plan 1.continue supportive care with IVF 2. order shower 3. laparoscopy with J-tube placement Tuesday Attending Statement The exam, history, and the medical decision-making described in the above note were completed with the assistance of the mid-level provider. I reviewed and agree with the findings presented. I attest that I had a [id number] encounter with the patient on the same day, and personally performed and documented my assessment and findings in the medical record Josef Wilcox MD Jul 23, 2016 20:01
[2016-07-23] MEDS: REMOVE OLD PATCH T-DERMAL SCH (21:00)
[2016-07-24] VITALS: BP 147/99; PULSE 85; RESP 20; TEMP 96.8; O2SAT 99
[2016-07-24] MEDS: HYDROmorphone HCL PF 1 MG/ML VIAL IV PUSH PRN ×10 (00:58→23:01)
[2016-07-24 04:48] LABS: HEMATOCRIT 37.3 % (39.0-51.0); MEAN CORPUSCULAR HEMOGLOBIN 31.5 PG (27.0-34.0); MEAN CORPUSCULAR HGB CONC 34.2 % (32.0-36.0); PLATELET COUNT 281 TH/MM3 (150-450); RED BLOOD COUNT 4.05 MIL/MM3 (4.50-5.90); RED CELL DISTRIBUTION WIDTH 13.1 % (11.6-17.2); REVIEW FLAG FINAL; WHITE BLOOD COUNT 7.8 TH/MM3 (4.0-11.0)
[2016-07-24 04:58] LABS: BICARBONATE 28.4 MEQ/L (21.0-32.0); POTASSIUM 3.8 MEQ/L (3.5-5.1)
[2016-07-24 08:00] VITALS: BP 125/90; PULSE 100; RESP 12; TEMP 98.2; O2SAT 96
[2016-07-24] MEDS: SODIUM CHLORIDE 0.9% FLUSH 10 ML FLUSH IV FLUSH SCH ×2 (09:00→20:01)
[2016-07-24] MEDS: NICOTINE 21 MG/24 HR PATCH T-DERMAL SCH (09:00)
--- NOTE | 2016-07-24 09:07 | HHI.FPPN ---
Subjective Remarks Patient seen and examined this morning. Temperature 96.8, pulse 85, respiratory rate 20, blood pressure 147/99, pulse ox 99 on room air. Patient just finished having a bath and he was evaluated. He said that it felt very good to get cleaned up. He reports that he is having very severe abdominal pain since the procedure. As well as feeling some swelling in tenderness to the left lower quadrant. His pain seems to be out of proportion for the procedure that was performed. He is requesting an increase in his pain medications, which has been agreed upon. Endorses: Abdominal pain Denies: Fever, chills, nausea, vomiting, shortness of breath, chest pain, headache, calf pain (Marc Carrillo MD R2) Objective Vitals Vital Signs Date Time Temp Pulse Resp B/P Pulse Ox O2 Delivery O2 Flow Rate FiO2 07/24/16 00:00 96.8 85 20 147/99 99 07/23/16 20:00 97.7 91 18 139/91 98 07/23/16 16:00 96.1 84 16 146/95 99 07/23/16 14:17 97.7 82 14 149/99 100 07/23/16 13:15 80 23 151/99 97 Room Air 07/23/16 13:00 79 23 154/98 97 Room Air 07/23/16 12:45 79 25 157/101 100 Nasal Cannula 2 07/23/16 12:30 75 25 162/104 100 Nasal Cannula 2 07/23/16 12:25 97.9 85 26 178/106 100 Nasal Cannula 2 I/O 07/23/16 07/23/16 07/23/16 07/24/16 07/24/16 07/24/16 07:00 15:00 23:00 07:00 15:00 23:00 Intake Total 657 ml 450 ml 1375 ml 875 ml Output Total 450 ml 25 ml Balance 207 ml 425 ml 1375 ml 875 ml Intake Oral 0 ml 720 ml 240 ml IV Total 657 ml 655 ml 635 ml Other 450 ml Output Urine Total 450 ml Estimated Blood Loss 25 ml # Voids 2 3 # Bowel Movements 0 (Marc Carrillo MD R2) Result Diagram: 07/24/16 0411 07/24/16 041 Objective Remarks O. CONSTITUTIONAL/GEN: thin male, in NAD. EYES: conjunctiva normal, PERRLA, EOMI (temporal wasting). LUNGS: clear A-P, respiratory effort is normal. CARDIOVASCULAR: RR without murmur or gallop. No significant edema. GI/ABD: soft without masses, without organomegaly. NEURO: No focal deficits. SKIN: color normal, no rashes noted. HEME/LYMPH: no bruising, petechia or significant adenopathy MUSC: back is normal in appearance. Extremities are normal in appearance. PSYCH/MENTAL STATUS: Alert and oriented x 3. Medications and IVs Current Medications Medications (Trade) Dose Ordered Sig/Ezra Route Start Time Stop Time Status Last Admin (D5-02/22 NS + KCl 20 Meq Inj) 1,000 ml @ 85 mls/hr [id number] IV 07/20/16 14:11 07/23/16 21:05 (NS Flush) 2 ml UNSCH PRN IV FLUSH 07/20/16 14:15 (NS Flush) 2 ml BID IV FLUSH 07/20/16 21:00 07/23/16 21:04 (Tylenol) 650 mg Q4H PRN PO 07/20/16 14:15 07/23/16 09:47 (Zofran Inj) 4 mg Q6H PRN IVP 07/20/16 14:15 (Ambien) 5 mg HS PRN PO 07/20/16 14:15 07/22/16 21:19 (Narcan Inj) 0.4 mg UNSCH PRN IV 07/20/16 14:15 (Zofia-Colace) 1 tab BID PRN PO 07/20/16 14:15 (Milk Of Magnesia Liq) 30 ml Q12H PRN PO 07/20/16 14:15 (Senokot) 17.2 mg Q12H PRN PO 07/20/16 14:15 (Dulcolax Supp) 10 mg DAILY PRN RECTAL 07/20/16 14:15 (Lactulose Liq) 30 ml DAILY PRN PO 07/20/16 14:15 (Habitrol 21 Mg Patch.24 Hr) 1 patch DAILY T-DERMAL 07/20/16 16:45 07/20/16 17:22 Miscellaneous Information 1 HS T-DERMAL 07/20/16 21:00 07/20/16 20:26 (Protonix Inj) 40 mg DAILY IV PUSH 07/22/16 08:30 07/24/16 09:14 (Mylicon Chew) 80 mg PCHS PRN CHEW 07/22/16 08:30 07/22/16 13:39 Miscellaneous Information ALL NURSING DEPARTME... 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 Being admitted for dysphagia and J-tube placement. wdw: Dr. Rodrigez Discharge Planning J-tube has been placed, anticipate discharge once pain is better controlled ( Marc Carrillo MD R2) Attending Attestation Patient seen and examined. Case reviewed and discussed with the resident team. Agree with plan of care as discussed with me and documented in the resident note. (Frannie Rodrigez MD) Problem List: (1) Dysphagia Status: Acute Plan: Patient's dysphagia has improved with EGD and dilation. Status post J- tube placement on 07/23/16 * Admit to observation * Gastroenterology consulted, recommendations appreciated * Gen. surgery consulted, recommendations appreciated * IV fluids at D5 1/2 NS at 85 MLS per hour * Will be starting Januvia through the patient's J-tube * Dilaudid 1 mg every 2 hours when necessary pain scale 5-10 * Tylenol 650 mg by mouth every 4 hours when necessary temperature, pain, headache * CBC, BMP ordered for the a.m. (2) Esophageal cancer Status: Chronic Plan: Patient with stage III gastroesophageal adenocarcinoma. Started chemotherapy 1 week ago. * Consulted oncology, Dr. Wilcox for recommendations during this hospitalization * Chemotherapy and radiation per scheduled regimen * Status post J-tube placement (3) Nutrition, metabolism, and development symptoms Status: Acute Plan: Diet: Januvia through J-tube Fluids: IV fluids as above Vitals every 4 Out of bed ad ted. Monitor electrolytes and replace accordingly DVT prophylaxis with SCDs, will restart heparin CODE STATUS: Full code Disposition: J-tube has been placed discharge anticipated once patient has better pain control (Marc Carrillo MD R2) Problem Qualifiers (1) Esophageal cancer: Qualified Code: C15.9 - Malignant neoplasm of esophagus, unspecified location Marc Carrillo MD R2 Jul 24, 2016 09:06 Frannie Rodrigez MD Jul 24, 2016 10:18
[2016-07-24] MEDS: PANTOPRAZOLE SODIUM 40 MG VIAL IV PUSH SCH (09:14)
[2016-07-24 12:00] VITALS: BP 134/96; PULSE 102; RESP 16; TEMP 98.1; O2SAT 95
[2016-07-24] MEDS: D5-1/2 NS + KCL 20 MEQ INJ 1,000 ML IV SCH ×2 (12:35→20:03)
--- NOTE | 2016-07-24 12:58 | HHI.PR ---
Subjective Subjective Notes DAILY PROGRESS NOTE FOR SURGICAL ATTENDING, DR. JORGITO TROTTER Objective Vitals/I&O Vital Signs Date Time Temp Pulse Resp B/P Pulse Ox O2 Delivery O2 Flow Rate FiO2 07/24/16 08:00 98.2 100 12 125/90 96 07/23/16 13:15 Room Air 07/23/16 12:45 2 07/20/16 14:59 21 Labs Laboratory Tests Test 07/24/16 07/24/16 04:11 04:13 White Blood Count 7.8 Red Blood Count 4.05 Hemoglobin 12.8 Hematocrit 37.3 Mean Corpuscular Volume 92.0 Mean Corpuscular Hemoglobin 31.5 Mean Corpuscular Hemoglobin 34.2 Concent Red Cell Distribution Width 13.1 Platelet Count 281 Mean Platelet Volume 7.6 Sodium Level 134 Potassium Level 3.8 Chloride Level 99 Carbon Dioxide Level 28.4 Anion Gap 7 Blood Urea Nitrogen 2 Creatinine 0.36 Estimat Glomerular Filtration 257 Rate Random Glucose 107 Calcium Level 8.6 Abdomen: Post-op tenderness Narrative Exam G-tube tolerating tube feeds at 10 cc an hour A/P Problem List: (1) Gastrostomy tube in place (2) Dysphagia (3) Esophageal cancer (4) Adenocarcinoma carcinomatosis Assessment and Plan 50 year old male with esophagus cancer with obstruction in need of enteric feeding tube Dr. alcala placed gastrostomy tube yesterday Patient tolerating tube feeds at 10 cc an hour Pain under control Attending Statement NOTE FOR SURGICAL ATTENDING, DR. JORGITO TROTTER . I attest that I had a [id number] encounter with the patient on the same day, and personally performed and documented my assessment and findings in the medical record. The following services were provided during this hospital visit: Chart data review, vital sign assessments/reviewing monitor data Review of consultations notes if present. Medication orders/review and/or management Ordering and/or reviewing lab tests Ordering and/or interpreting/reviewing x-rays and/or diagnostic studies Care of the patient and discussion of the patient with the care team Documentation time To help prompt me to consider important information that might be impacting today's encounter and assessment, information from prior notes written by myself or my colleagues may have been "brought forward/copy and pasted" into today's note. Problem Qualifiers (1) Esophageal cancer: Qualified Code: C15.9 - Malignant neoplasm of esophagus, unspecified location Jorgito Trotter MD Jul 24, 2016 12:58
[2016-07-24] MEDS: HEPARIN SODIUM - SQ 10,000 UNITS/ML VIAL SQ SCH ×2 (14:48→20:02)
[2016-07-24 16:00] VITALS: BP 133/91; PULSE 92; RESP 16; TEMP 97.7; O2SAT 96
--- NOTE | 2016-07-24 19:53 | MP ---
cc: JERMAN DELGADO DATE OF SURGERY: 07/23/2016. PREOPERATIVE DIAGNOSIS: Esophageal adenocarcinoma. POSTOPERATIVE DIAGNOSIS Esophageal adenocarcinoma with carcinoma ptosis (stage IV esophageal adenocarcinoma). OPERATIVE PROCEDURE PERFORMED: 1. Diagnostic (staging) laparoscopy. 2. Laparoscopic peritoneal biopsy times two sites with intraoperative frozen section. 3. Laparoscopic gastrostomy tube placement, percutaneous type. ATTENDING SURGEON: Jerman Delgado M.D. DIAMOND DRILLER: Staff ANESTHESIA: General and local anesthetic. FINDINGS: Diffuse peritoneal disease consistent with carcinomatosis and positive for adenocarcinoma on frozen section. ESTIMATED BLOOD LOSS: 25 mL. COMPLICATIONS: None. INDICATIONS FOR THE PROCEDURE: The patient is a 50-year-old male recently diagnosed with a nearly obstructing T4 adenocarcinoma of the distal esophagus. The patient is undergoing chemoradiation currently and developed dysphagia and weight loss. The patient was admitted to the hospital and underwent IV fluids and rehydration and attempted dilation; however, this was unfortunately a refractory dilation and enteric feeding tube was required. I discussed with the patient about the feeding options including TPN as well as gastrostomy and jejunostomy tube placement. Discussed risks, benefits, and alternatives to each procedure and I recommended diagnostic laparoscopy, possible gastrostomy tube and possible jejunostomy tube. The patient and the family agreed and consented to the procedure. DESCRIPTION OF THE PROCEDURE IN DETAIL: After informed consent was obtained, the patient was taken to the operating room and placed in the supine position. He was placed under general endotracheal anesthesia. The patient's abdomen was shaved, prepped and draped in a sterile fashion. Time-out was performed. The abdomen was entered through a Simeon type technique just above the umbilicus. We used local anesthetic at this site as well as all sites. We did directly open the fascia at the midline and gently spread with a hemostat and entered the abdominal cavity under direct visualization. We then placed a 10-mm balloon trocar into his abdomen under visualization. We insufflated the abdomen and surveyed the abdomen with a 5 mm 30-degree camera and there was no evidence of any complication from our entry. Initially there appeared to be only some ascites but no obvious pathology. We did place a second port which was a 5-mm port in the left upper quadrant to better manipulate the fissure work towards the tube placement. She has done direct visualization. We then were able to survey the abdomen completely and upon manipulation of some the viscera as well as looking down into the pelvis, we then noticed multiple areas of tumor studding consistent with carcinomatosis. We were able to take a sharp biopsy of two of these areas in the right upper quadrant laterally over the liver and sent it for intraoperative frozen section, which returned adenocarcinoma. We had good hemostasis with the cautery. At this point time, it was felt the patient would benefit most from a gastrostomy tube placement due to the lesser rate of complications with a gastrostomy tube as opposed to a jejunostomy tube and the patient would not be as indicated to undergo surgery it was felt like it was appropriate to place a J tube at this time. The patient is very unlikely to be a surgical candidate and therefore was not concerned about the conduit; however, we did place this anteriorly into the junction of the antrum in the body away from the gastroduodenal artery and the area of the stomach. This was done with four percutaneous T-bars after we had anesthetized the skin with lidocaine. We then used the percutaneous gastrostomy tube to directly we place a wire into the gastric lumen and dilate this tract and placed a 16-Malagasy gastrostomy tube into the gastric lumen. We insufflated the balloon with saline and pulled up to the abdominal wall without tension. We were able to tie down our T-bar sutures, all four of them. We had excellent technical result. This aspirated gastric contents and was flushed with saline. At this point in time, dressings were applied to the gastrostomy tube and turned our attention towards closure. We removed the scope and ports and expressed the pneumoperitoneum. We closed the Simeon defect with interrupted 0 Vicryl sutures. We closed the skin with 4-0 Monocryl and Dermabond. The patient was discontinued from the anesthesia and taken to the post-anesthesia care unit in stable condition. The patient tolerated the procedure well and there were no apparent complications. All counts were correct. I was present and scrubbed for the entire procedure. MD KLEVER Soto/RANDALL /12:25 PM /7:37 PM
[2016-07-24 20:00] VITALS: BP 160/90; PULSE 94; RESP 20; TEMP 97.4; O2SAT 97
[2016-07-24] MEDS: REMOVE OLD PATCH T-DERMAL SCH (20:01)
[2016-07-25] VITALS: BP 158/101; PULSE 99; RESP 20; TEMP 96.8; O2SAT 97
[2016-07-25] MEDS: HYDROmorphone HCL PF 1 MG/ML VIAL IV PUSH PRN ×8 (03:27→21:10)
[2016-07-25] MEDS: HEPARIN SODIUM - SQ 10,000 UNITS/ML VIAL SQ SCH ×4 (03:28→21:03)
[2016-07-25 05:00] LABS: HEMATOCRIT 36.5 % (39.0-51.0); MEAN CELL VOLUME 92.5 FL (80.0-100.0); MEAN CORPUSCULAR HEMOGLOBIN 31.8 PG (27.0-34.0); MEAN CORPUSCULAR HGB CONC 34.4 % (32.0-36.0); PLATELET COUNT 283 TH/MM3 (150-450); RED BLOOD COUNT 3.95 MIL/MM3 (4.50-5.90); RED CELL DISTRIBUTION WIDTH 13.2 % (11.6-17.2); WHITE BLOOD COUNT 7.3 TH/MM3 (4.0-11.0)
[2016-07-25 05:02] LABS: REVIEW FLAG FINAL
[2016-07-25 05:07] LABS: BICARBONATE 30.4 MEQ/L (21.0-32.0); POTASSIUM 3.9 MEQ/L (3.5-5.1)
[2016-07-25] MEDS: NICOTINE 21 MG/24 HR PATCH T-DERMAL SCH (07:19)
--- NOTE | 2016-07-25 07:36 | HHI.FPPN ---
Subjective Remarks Patient states that he is doing much better today. The abdominal pain and swelling are much improved this morning. He has been tolerating tube feeds and also has been able to swallow liquids without difficulty. He has no chest pain or trouble breathing. No nausea or vomiting. Family at bedside this morning (Kathya Nair MD R1) Objective Vitals Vital Signs Date Time Temp Pulse Resp B/P Pulse Ox O2 Delivery O2 Flow Rate FiO2 07/25/16 00:00 96.8 99 20 158/101 97 07/24/16 20:00 97.4 94 20 160/90 97 07/24/16 16:00 97.7 92 16 133/91 96 07/24/16 12:00 98.1 102 16 134/96 95 07/24/16 08:00 98.2 100 12 125/90 96 I/O 07/24/16 07/24/16 07/24/16 07/25/16 07/25/16 07/25/16 07:00 15:00 23:00 07:00 15:00 23:00 Intake Total 875 ml 480 ml 1242 ml 923 ml Balance 875 ml 480 ml 1242 ml 923 ml Intake Oral 240 ml 480 ml 480 ml 240 ml IV Total 635 ml 690 ml 615 ml Tube Feeding 72 ml 68 ml # Voids 3 5 3 2 (Kathya Nair MD R1) Result Diagram: 07/25/16 0356 07/25/16 0356 Objective Remarks CONSTITUTIONAL/GEN: thin male, in NAD. EYES: conjunctiva normal, PERRLA, EOMI (temporal wasting). LUNGS: clear A-P, respiratory effort is normal. CARDIOVASCULAR: RR without murmur or gallop. No significant edema. GI/ABD: soft without masses, without organomegaly. Mildly tender to palpation in the lower abdomen, worse on the left, no abdominal swelling noted around site of gastrostomy tube NEURO: No focal deficits. SKIN: color normal, no rashes noted. HEME/LYMPH: no bruising, petechia or significant adenopathy MUSC: back is normal in appearance. Extremities are normal in appearance. PSYCH/MENTAL STATUS: Alert and oriented x 3. (Kathya Nair MD R1) A/P Assessment and Plan 50-year-old male with past medical history significant for stage III gastroesophageal adenocarcinoma diagnosed in April 2016 was admitted for dysphagia. Gastrostomy tube was inserted on 07/23, postop day 2. Patient tolerating tube feeds well. Seen and examined with Dr. Rodrigez and Dr. Cosme Discharge Planning Gastrostomy tube has been placed, anticipate discharge after patient has been seen by the dietary team and educated on administration of tube feeds (Kathya Nair MD R1) Attending Attestation Patient seen and examined. Case reviewed and discussed with the resident team. Agree with plan of care as discussed with me and documented in the resident note. (Frannie Rodrigez MD) Problem List: (1) Dysphagia Status: Acute Plan: Patient's dysphagia has improved with EGD and dilation. Status post gastrostomy tube placement on 07/23/16, postop day 2 * Continue IV fluids at D5 1/2 NS at 85 MLS per hour * Dilaudid 1 mg every 2 hours when necessary pain scale 5-10 * Tylenol 650 mg by mouth every 4 hours when necessary temperature, pain, headache (2) Esophageal cancer Status: Chronic Plan: Patient with stage III gastroesophageal adenocarcinoma. * Consulted oncology, recommended J-tube placement * Chemotherapy and radiation per scheduled regimen * Status post gastrostomy tube placement on 07/23 (3) Nutrition, metabolism, and development symptoms Status: Acute Plan: Diet: Currently on Jevity tube feeds at 20 mL hour, increase by 10 mL Q8h Fluids: IV fluids as above Vitals every 4 Out of bed ad ted. Monitor electrolytes and replace accordingly DVT prophylaxis with SCDs, heparin 5000 units subcutaneous every 8 hours Constipation prophylaxis with simethicone and Senokot (Kathya Nair MD R1) Problem Qualifiers (1) Esophageal cancer: Qualified Code: C15.9 - Malignant neoplasm of esophagus, unspecified location Kathya Nair MD R1 Jul 25, 2016 07:36 Frannie Rodrigez MD Jul 25, 2016 15:20
[2016-07-25 08:00] VITALS: BP 145/98; PULSE 95; RESP 14; TEMP 97.9; O2SAT 97
[2016-07-25] MEDS: PANTOPRAZOLE SODIUM 40 MG VIAL IV PUSH SCH (08:05)
[2016-07-25] MEDS: SODIUM CHLORIDE 0.9% FLUSH 10 ML FLUSH IV FLUSH SCH ×2 (08:06→21:02)
--- NOTE | 2016-07-25 10:34 | HHI.PR ---
Subjective Subjective Notes no issue, tolerating tf at 20cc Objective Vitals/I&O Vital Signs Date Time Temp Pulse Resp B/P Pulse Ox O2 Delivery O2 Flow Rate FiO2 07/25/16 08:00 97.9 95 14 145/98 97 07/23/16 13:15 Room Air 07/23/16 12:45 2 Labs Laboratory Tests Test 07/25/16 03:56 White Blood Count 7.3 Red Blood Count 3.95 Hemoglobin 12.6 Hematocrit 36.5 Mean Corpuscular Volume 92.5 Mean Corpuscular Hemoglobin 31.8 Mean Corpuscular Hemoglobin 34.4 Concent Red Cell Distribution Width 13.2 Platelet Count 283 Mean Platelet Volume 7.7 Sodium Level 134 Potassium Level 3.9 Chloride Level 97 Carbon Dioxide Level 30.4 Anion Gap 7 Blood Urea Nitrogen 3 Creatinine 0.33 Estimat Glomerular Filtration 284 Rate Random Glucose 102 Calcium Level 8.5 Cardiovascular: Regular Lungs: Clear Abdomen: Other (g tube c/d/i) A/P Problem List: (1) Gastrostomy tube in place (2) Dysphagia (3) Esophageal cancer (4) Adenocarcinoma carcinomatosis Assessment and Plan 50 year old male with esophagus cancer with obstruction in need of enteric feeding tube Dr. alcala placed gastrostomy tube POD 2 Patient tolerating tube feeds at 20 cc an hour, increase by 10cc q8hr bowel regimen Pain under control D/C planning, [facility] for tf Problem Qualifiers (1) Esophageal cancer: Qualified Code: C15.9 - Malignant neoplasm of esophagus, unspecified location Kolton Guajardo MD Jul 25, 2016 10:34
[2016-07-25] MEDS: D5-1/2 NS + KCL 20 MEQ INJ 1,000 ML IV SCH ×2 (11:16→21:03)
[2016-07-25 12:00] VITALS: BP 147/97; PULSE 97; RESP 17; TEMP 98.5; O2SAT 97
--- NOTE | 2016-07-25 14:50 | HHI.FPPN ---
Addendum to progress note ADDENDUM Reason for addendum: Additonal documentation Additional information OFF-SERVICE NOTES Patient is a 50-year-old male with past medical history significant for stage III gastroesophageal adenocarcinoma diagnosed in April 2016 was admitted for dysphagia secondary to esophageal stricture. He presented to the [facility] on 07/21 with a chief complaints of dysphagia. Esophageal dilation procedure was performed the same day and the patient was admitted to the hospital for J-tube placement as recommended by his oncologist Dr. Wilcox. A gastrostomy tube was placed by general surgery on 07/23 and today the patient is doing well clinically. He is tolerating Jevity tube feeds on a schedule directed by general surgery. He is ready for discharge except that he requires education by the dietary team on administration of tube feeds at home. Dietary has been consulted and should see the patient tomorrow 07/26. Kathya Nair MD R1 Jul 25, 2016 14:50
--- NOTE | 2016-07-25 15:24 | HHI.DCPOC ---
Discharge Care Plan Diagnosis: (1) Esophageal cancer (2) Gastrostomy tube in place (3) Dysphagia (4) Food impaction of esophagus Goals to Promote Your Health * To prevent worsening of your condition and complications * To maintain your health at the optimal level Directions to Meet Your Goals Take your medications as prescribed Follow your dietary instruction Follow activity as directed Keep your appointments as scheduled Take your immunizations and boosters as scheduled If your symptoms worsen call your PCP, if no PCP go to Urgent Care Center or Emergency Room Smoking is Dangerous to Your Health. Avoid second hand smoke Call the 24-hour hour crisis hotline for domestic abuse at Kathya Nair MD R1 Jul 25, 2016 15:24
--- NOTE | 2016-07-25 15:29 | HHI.FF ---
Face to Face Verification Diagnosis: (1) Dysphagia (2) Esophageal cancer (3) Gastrostomy tube in place (4) Adenocarcinoma carcinomatosis Physical Therapy Order: Evaluate and Treat, Improve ambulation, Strength and gait training Speech Therapy Order: To Improve: Swallowing Home Health Nursing Order: Medical education Signs/symptoms of disease process Medication education-adverse effect Wound care and dressing changes (Gastrostomy tube management) Nursing assessment with vital signs I have seen patient Jg Escobar on 07/25/16. My clinical findings support the need for the requested home health care services because: Ltd mobility - disease progression Deconditioned w/ increased weakness Limited ability to care for self Need for psychosocial assistance High risk of falls I certify that my clinical findings support that this patient is homebound because: Unsteady gait/balance Unsafe to leave home unassisted Need for psychosocial assistance Kathya Nair MD R1 Jul 25, 2016 15:29
[2016-07-25 16:00] VITALS: BP 139/86; PULSE 93; RESP 16; TEMP 98; O2SAT 96
[2016-07-25 20:00] VITALS: BP 131/89; PULSE 97; RESP 18; TEMP 98.2; O2SAT 100
[2016-07-25] MEDS: REMOVE OLD PATCH T-DERMAL SCH (21:00)
[2016-07-26] VITALS: BP 143/95; PULSE 96; RESP 18; TEMP 97.8; O2SAT 95
[2016-07-26 05:26] LABS: HEMATOCRIT 37.1 % (39.0-51.0); MEAN CELL VOLUME 92.6 FL (80.0-100.0); MEAN CORPUSCULAR HEMOGLOBIN 31.7 PG (27.0-34.0); MEAN CORPUSCULAR HGB CONC 34.3 % (32.0-36.0); PLATELET COUNT 295 TH/MM3 (150-450); RED CELL DISTRIBUTION WIDTH 13.2 % (11.6-17.2); REVIEW FLAG FINAL; WHITE BLOOD COUNT 9.8 TH/MM3 (4.0-11.0)
[2016-07-26 05:47] LABS: BICARBONATE 29.5 MEQ/L (21.0-32.0); POTASSIUM 3.6 MEQ/L (3.5-5.1)
[2016-07-26] MEDS: HEPARIN SODIUM - SQ 10,000 UNITS/ML VIAL SQ SCH ×2 (06:29→14:37)
[2016-07-26 08:00] VITALS: BP 147/92; PULSE 109; RESP 19; TEMP 98.1; O2SAT 96
[2016-07-26] MEDS: PANTOPRAZOLE SODIUM 40 MG VIAL IV PUSH SCH (08:53)
[2016-07-26] MEDS: SODIUM CHLORIDE 0.9% FLUSH 10 ML FLUSH IV FLUSH SCH (08:54)
[2016-07-26] MEDS: NICOTINE 21 MG/24 HR PATCH T-DERMAL SCH (08:54)
--- NOTE | 2016-07-26 10:50 | PD.ONC.PN ---
Subjective Subjective Remarks Afebrile overnight. Patient resting in bed. Tolerating tube feeds. Denies pain. Objective Data Date Time Temp Pulse Resp B/P Pulse Ox O2 Delivery O2 Flow Rate FiO2 07/26/16 08:00 98.1 109 19 147/92 96 07/26/16 00:00 97.8 96 18 143/95 95 07/25/16 20:00 98.2 97 18 131/89 100 07/25/16 16:00 98.0 93 16 139/86 96 07/25/16 12:00 98.5 97 17 147/97 97 Result Diagram: 07/26/16 0507/26/16 05 Laboratory Results Laboratory Tests Test 07/26/16 05:11 White Blood Count 9.8 TH/MM3 Red Blood Count 4.00 MIL/MM3 Hemoglobin 12.7 GM/DL Hematocrit 37.1 % Mean Corpuscular Volume 92.6 FL Mean Corpuscular Hemoglobin 31.7 PG Mean Corpuscular Hemoglobin 34.3 % Concent Red Cell Distribution Width 13.2 % Platelet Count 295 TH/MM3 Mean Platelet Volume 7.4 FL Sodium Level 132 MEQ/L Potassium Level 3.6 MEQ/L Chloride Level 96 MEQ/L Carbon Dioxide Level 29.5 MEQ/L Anion Gap 7 MEQ/L Blood Urea Nitrogen 5 MG/DL Creatinine 0.35 MG/DL Estimat Glomerular Filtration 266 ML/MIN Rate Random Glucose 120 MG/DL Calcium Level 8.5 MG/DL Administered Medications Medications (Trade) Dose Ordered Sig/Ezra Route PRN Reason Start Time Stop Time Status Last Admin Dose Admin Potassium Chloride/Dextrose/ Sod Cl (D5-/2 NS + KCl 20 Meq Inj) 1,000 ml @ 85 mls/hr [id number] IV 07/20/16 14:11 07/25/16 21:03 Sodium Chloride (NS Flush) 2 ml BID IV FLUSH 07/20/16 21:00 07/26/16 08:54 Acetaminophen (Tylenol) 650 mg Q4H PRN PO TEMP>101F, PAIN 1-10, HEADACHE 07/20/16 14:15 07/23/16 09:47 Zolpidem Tartrate (Ambien) 5 mg HS PRN PO INSOMNIA 07/20/16 14:15 07/22/16 21:19 Sennosides (Senokot) 17.2 mg Q12H PRN PO MODERATE - SEVERE CONSTIPATION 07/20/16 14:15 07/25/16 12:51 Nicotine (Habitrol 21 Mg Patch.24 Hr) 1 patch DAILY T-DERMAL 07/20/16 16:45 07/20/16 17:22 Miscellaneous Information 1 HS T-DERMAL 07/20/16 21:00 07/20/16 20:26 Pantoprazole Sodium (Protonix Inj) 40 mg DAILY IV PUSH 07/22/16 08:30 07/26/16 08:53 Simethicone (Mylicon Chew) 80 mg PCHS PRN CHEW GAS RETENTION 07/22/16 08:30 07/22/16 13:39 Hydromorphone HCl (Dilaudid Pf Inj) 1 mg Q2H PRN IV PUSH pain 5-10 07/24/16 10:30 07/25/16 21:10 Heparin Sodium (Porcine) (Heparin Inj) 5,000 units Q8HR SQ 07/24/16 14:00 07/26/16 06:29 Objective Remarks GENERAL: Middle aged malnourished male, lying in bed in [facility]. SKIN: Warm and dry. HEAD: Normocephalic. EYES: no injection or drainage. NECK: Supple, trachea midline. CARDIOVASCULAR: Regular rate and rhythm RESPIRATORY: Breath sounds equal bilaterally. No accessory muscle use. GASTROINTESTINAL: Abdomen soft, non-tender, nondistended. receiving TF via G- tube. site clean. EXTREMITIES: No cyanosis NEUROLOGICAL: aox3. normal speech. no obvious focal deficit Assessment/Plan Problem List: (1) Dysphagia Status: Acute Plan: --s/p ex lap and G-tube placement on 07/23. now tolerating tube feeds. --s/p EGD with dilation on 07/20 --peritoneum biopsied during ex lap on 07/23--pathology pending Assessment 50y/o male with esophageal carcinoma and dysphagia --stage III T4a N0 M0 gastroesophageal adenocarcinoma. currently undergoing concurrent chemotherapy and radiation treatments. --presented with dysphagia in early April of 2016 and EGD was performed which showed large amount of food stuck in the esophagus which was removed. There was a an esophageal mass. Biopsy confirmed a poorly differentiated adenocarcinoma with focal mucinous features. There was significant wall thickening involving the lower thoracic esophagus. He underwent an endoscopic ultrasound which showed a large tumor penetrating the cardia and abutting the aorta but not invading the aorta. A PET scan was performed which did not show any distal metastatic disease. Due to insurance issues the patient was not been able to have a J-tube placed prior to his chemo radiation treatments. The patient presented to the radiation oncology clinic and was feeling unwell. He had been unable to swallow any food or drink any fluids either. He appeared to be quite weak and cachectic. The patient was sent to the emergency department. Plan 1. consult gas main fitter helper for bolus tube feeding recommendations 2. stop IVF 3. continue supportive care 4. await pathology from peritoneal biopsy Attending Statement The exam, history, and the medical decision-making described in the above note were completed with the assistance of the mid-level provider. I reviewed and agree with the findings presented. I attest that I had a [id number] encounter with the patient on the same day, and personally performed and documented my assessment and findings in the medical record. 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 Cheryl Bardales Jul 26, 2016 10:50 Josef Wilcox MD Jul 27, 2016 00:41
[2016-07-26 12:00] VITALS: BP_SYST 158; BP_SYST 165; BP_DIAS 101; BP_DIAS 80; PULSE 97; RESP 18; TEMP 97.3; O2SAT 97
--- NOTE | 2016-07-26 14:27 | HHI.PR ---
Subjective Subjective Notes Resting in bed Reports no pain Tolerating TF Objective Vitals/I&O Vital Signs Date Time Temp Pulse Resp B/P Pulse Ox O2 Delivery O2 Flow Rate FiO2 07/26/16 12:00 97.3 97 18 165/101 97 158/80 07/23/16 13:15 Room Air 07/23/16 12:45 2 Labs Laboratory Tests Test 07/26/16 05:11 White Blood Count 9.8 Red Blood Count 4.00 Hemoglobin 12.7 Hematocrit 37.1 Mean Corpuscular Volume 92.6 Mean Corpuscular Hemoglobin 31.7 Mean Corpuscular Hemoglobin 34.3 Concent Red Cell Distribution Width 13.2 Platelet Count 295 Mean Platelet Volume 7.4 Sodium Level 132 Potassium Level 3.6 Chloride Level 96 Carbon Dioxide Level 29.5 Anion Gap 7 Blood Urea Nitrogen 5 Creatinine 0.35 Estimat Glomerular Filtration 266 Rate Random Glucose 120 Calcium Level 8.5 Cardiovascular: Regular Lungs: Clear Abdomen: Other (G tube in place without complications ) Extremities: No edema A/P Problem List: (1) Gastrostomy tube in place (2) Dysphagia (3) Esophageal cancer (4) Adenocarcinoma carcinomatosis Assessment and Plan 50 year old male with esophagus cancer with obstruction in need of enteric feeding tube -POD3 G tube placement -Tolerating continuous TF; will transition to bolus feedings -Clear liquids -OOB and mobilize -Await pathology Attending Statement The exam, history, and the medical decision-making described in the above note were completed with the assistance of the mid-level provider. I reviewed and agree with the findings presented. I attest that I had a cauj-gl-kphl encounter with the patient on the same day, and personally performed and documented my assessment and findings in the medical record. abdominal exam stable postop Problem Qualifiers (1) Esophageal cancer: Qualified Code: C15.9 - Malignant neoplasm of esophagus, unspecified location Frances Hendrix Jul 26, 2016 14:27 Martin Reis MD Aug 13, 2016 09:58
[2016-07-26] MEDS ORDERED: JEVILIQ12 G-TUBE ×4 (15:19→20:50)
[2016-07-26] MEDS ORDERED: B COTAB3 PO (15:25)
[2016-07-26] MEDS ORDERED: ONE-TAB14 PO (15:25)
[2016-07-26] MEDS ORDERED: NUTR-265 PO (15:32)
[2016-07-26 16:00] VITALS: BP 162/96; PULSE 99; RESP 18; TEMP 98.5; O2SAT 97
--- NOTE | 2016-07-26 16:53 | HHI.FPPN ---
Subjective Remarks No events overnight. Very eager to go home today. Abdominal pain improved. He is tolerating his tube feeds. He is swallowing liquids without difficulty. ( Ranjan Celestin MD R2) Objective Vitals Vital Signs Date Time Temp Pulse Resp B/P Pulse Ox O2 Delivery O2 Flow Rate FiO2 07/26/16 16:00 98.5 99 18 162/96 97 07/26/16 12:00 97.3 97 18 165/101 97 158/80 07/26/16 08:00 98.1 109 19 147/92 96 07/26/16 00:00 97.8 96 18 143/95 95 07/25/16 20:00 98.2 97 18 131/89 100 I/O 07/25/16 07/25/16 07/25/16 07/26/16 07/26/16 07/26/16 07:00 15:00 23:00 07:00 15:00 23:00 Intake Total 923 ml 960 ml 2333 ml 1090 ml 1182 ml Output Total 20.0 ml Balance 923 ml 960 ml 2313.0 ml 1090 ml 1182 ml Intake Oral 240 ml 960 ml 480 ml 360 ml 360 ml IV Total 615 ml 1405 ml 440 ml 428 ml Tube Feeding 68 ml 448 ml 290 ml 374 ml Tube Irrigant 20 ml Tube Feeding Residual Discard 20.0 ml # Voids 2 3 1 4 5 # Bowel Movements 0 0 2 3 (Ranjan Celestin MD R2) Result Diagram: 07/26/16 0511 07/26/16 0511 Objective Remarks CONSTITUTIONAL/GEN: thin male, in NAD. EYES: conjunctiva normal, PERRLA, EOMI (temporal wasting). LUNGS: CTAB CARDIOVASCULAR: RR without murmur or gallop. No significant edema. GI/ABD: soft without masses, without organomegaly. Mildly tender to palpation in the lower abdomen, worse on the left, no abdominal swelling noted around site of gastrostomy tube NEURO: No focal deficits. SKIN: color normal, no rashes noted. HEME/LYMPH: no bruising, petechia or significant adenopathy MUSC: back is normal in appearance. Extremities are normal in appearance. PSYCH/MENTAL STATUS: Alert and oriented x 3. (Ranjan Celestin MD R2) A/P Assessment and Plan 50-year-old male with past medical history significant for stage III gastroesophageal adenocarcinoma diagnosed in April 2016 was admitted for dysphagia. Gastrostomy tube was inserted on 07/23, postop day 3. Patient tolerating tube feeds well. DW Dr. Jesse Crystal Discharge Planning Gastrostomy tube has been placed, anticipate discharge today after education on tube feeds. Will get home health care with assistance with tube feeds. Will follow up with oncology for continued management of GE cancer. (Ranjan Celestin MD R2) Attending Attestation Patient seen and examined. Case reviewed and discussed with the resident team. Agree with plan of care as discussed with me and documented in the resident note. (Frannie Rodrigez MD) Problem List: (1) Dysphagia Status: Acute Plan: Patient's dysphagia has improved with EGD and dilation. Status post gastrostomy tube placement on 07/23/16, postop day 3. * DC IV fluids * Continuous tube feeds with Jevity 1.5 with goal rate of 60 mls/hr. * Home health care to assist with Tube feeds. Also with education in the hospital by nutrition faculty member. * Tylenol 650 mg by mouth every 4 hours when necessary temperature, pain, headache (2) Esophageal cancer Status: Chronic Plan: Patient with stage III gastroesophageal adenocarcinoma. * Consulted oncology, recommended J-tube placement * Chemotherapy and radiation per scheduled regimen * Status post gastrostomy tube placement on 07/23 * Will follow up with oncology outpatient for treatment (3) Nutrition, metabolism, and development symptoms Status: Acute Plan: Diet: Currently on Jevity tube feeds at 50 mL hour, goal of 60 ml/hr Fluids: PO fluids Mg and phosphorus twice weekly Multivitamin and B complex DVT prophylaxis with SCDs, heparin 5000 units subcutaneous every 8 hours (Ranjan Celestin MD R2) Problem Qualifiers (1) Esophageal cancer: Qualified Code: C15.9 - Malignant neoplasm of esophagus, unspecified location Ranjan Celestin MD R2 Jul 26, 2016 16:53 Frannie Rodrigez MD Jul 26, 2016 17:39
--- NOTE | 2016-07-26 16:57 | HHI.FF ---
Face to Face Verification Diagnosis: (1) Gastrostomy tube in place (2) Dysphagia (3) Esophageal cancer Home Health Nursing Order: Medical education Signs/symptoms of disease process Medication education-adverse effect Instructions: Help with tube feedings I have seen patient Jg Escobar on 07/26/16. My clinical findings support the need for the requested home health care services because: Deconditioned w/ increased weakness Limited ability to care for self I certify that my clinical findings support that this patient is homebound because: Impaired cognitive ability/safety Need for psychosocial assistance Ranjan Celestin MD R2 Jul 26, 2016 16:56
--- NOTE | 2016-07-29 07:20 | HHI.DS ---
Discharge Summary Admission Date July 20, 2016 at 13:45 Discharge Date: Jul 26, 2016 Admitting Diagnosis Esophageal stricture or obstruction (1) Dysphagia Diagnosis: Principal Plan: Patient's dysphagia has improved with EGD and dilation. Status post gastrostomy tube placement on 07/23/16, postop day 3. * DC IV fluids * Continuous tube feeds with Jevity 1.5 with goal rate of 60 mls/hr. * Home health care to assist with Tube feeds. Also with education in the hospital by visual manager. * Tylenol 650 mg by mouth every 4 hours when necessary temperature, pain, headache (2) Esophageal cancer Diagnosis: Principal Plan: Patient with stage III gastroesophageal adenocarcinoma. * Consulted oncology, recommended J-tube placement * Chemotherapy and radiation per scheduled regimen * Status post gastrostomy tube placement on 07/23 * Will follow up with oncology outpatient for treatment (3) Nutrition, metabolism, and development symptoms Diagnosis: Secondary Plan: Diet: Currently on Jevity tube feeds at 50 mL hour, goal of 60 ml/hr Fluids: PO fluids Mg and phosphorus twice weekly Multivitamin and B complex DVT prophylaxis with SCDs, heparin 5000 units subcutaneous every 8 hours Consultants hematology/oncology, speech therapy, GI Brief History This a 50-year-old male with past medical history significant for 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 Today he went to his oncologist's office because of worsening ability to eat, who sent him to the hospital. He says for the last week she's been having difficulty with swallowing food. However for the last 10-12 days he has been unable to swallow solid food. And that has progressively worsened to the last 3 days worries been unable to even get down liquids. He has not been able to get his protein shakes and has been feeling weaker and weaker because of this. He says that this is the third time that he has required an EGD with dilation in the last 2-3 months. At this point he is feeling very very hungry. He is even more concerned about the fact that he cannot get liquids down, and now feels like he is struggling just to get saliva down. He has started chemotherapy last week. Of note his oncologist Dr. Wilcox, wishes for him to have J-tube placed during this hospitalization. Discussed this with the agricultural engineering teacher who says they' re unlikely to be able to perform J-tube placement due to the stricture and suggest IR for placement. CBC/BMP: 07/26/16 0511 07/26/16 0511 PE at Discharge CONSTITUTIONAL/GEN: thin male, in NAD. EYES: conjunctiva normal, PERRLA, EOMI (temporal wasting). LUNGS: CTAB CARDIOVASCULAR: RR without murmur or gallop. No significant edema. GI/ABD: soft without masses, without organomegaly. Mildly tender to palpation in the lower abdomen, worse on the left, no abdominal swelling noted around site of gastrostomy tube NEURO: No focal deficits. SKIN: color normal, no rashes noted. HEME/LYMPH: no bruising, petechia or significant adenopathy MUSC: back is normal in appearance. Extremities are normal in appearance. PSYCH/MENTAL STATUS: Alert and oriented x 3. Hospital Course 50 year old male with history of 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 He presented to the ED with dysphagia. He was unable to swallow solid food for the past week before admission. It progressively worsened to the point that he could barely swallow liquids. He started chemotherapy the week before. He was admitted for placement of J-tube to help with feeding. Gastrostomy tube was placed on 07/23/16. He was discharged on post- op day 3. He was tolerating tube feeds by discharge. He was discharged with bolus tube feedings. He will get 240 ml g-tube bolus 6 times a day. He has home health set up to help him with the tube feedings at home. He will follow up with oncology for continued treatment of gastric cancer. He will get magnesium/ phosphorus checked twice weekly. He will take multivitamin and B complex daily. He will follow up with surgery for check of his G-tube. Pt Condition on Discharge: Stable Discharge Disposition: Disch w/ Home Health Serv Discharge Instructions DIET: Follow Instructions for: On Tube Feeding, Clear Liquid Diet Additional Diet Instructions: Jevity 1.5 at 50 mls/hr via g-tube with goal rate of 60 mls/hr Supplement with Ensure Enlive tid Activities you can perform: Regular-No Restrictions Follow up Referrals: Oncology - 2-3 Days PCP Follow-up - 1 Week Surgical - 2 Weeks New Orders: MAGNESIUM (MG) - 3-5 Days PHOSPHORUS (PO4) - 3-5 Days New Medications: B-Complex W/ Folic Acid (B Complex) 1 Tab 1 TAB PO DAILY #30 TAB Lactose-Reduced Food (Ensure Enlive) 237 Ml Liquid 8 OZ PO TID #90 BOTTLE Multivitamin (One Daily Multivitamin) 1 Each Tablet 1 TAB PO DAILY #30 TAB Nutritional Supplements (Jevity 1.5 Shabbir) 1 Liq Liq 240 ML G-TUBE BOLUS 6 times a day #99 Ranjan Mancia MD R2 Jul 29, 2016 07:20
== END 2016-07-26 18:37 | disposition home or self-care (01) ==
LOC: NEPE 10:04 → NEDA 13:45 → N07B 17:18
PROVIDERS: ADMIT Family Medicine; ATTEND Family Medicine
DX: C15.5 Malignant neoplasm of lower third of esophagus (principal); C78.6 Secondary malignant neoplasm of retroperitoneum and peritoneum; T45.1X5A Adverse effect of antineoplastic and immunosuppressive drugs, initial encounter; E86.0 Dehydration; E46 Unspecified protein-calorie malnutrition; F17.210 Nicotine dependence, cigarettes, uncomplicated; K20.9 Esophagitis, unspecified; Z85.819 Personal history of malignant neoplasm of unspecified site of lip, oral cavity, and pharynx; Z92.21 Personal history of antineoplastic chemotherapy; Y84.2 Radiological procedure and radiotherapy as the cause of abnormal reaction of the patient, or of later complication, without mention of misadventure at the time of the procedure; Z68.1 Body mass index [BMI] 19.9 or less, adult
CPT/HCPCS: 00740; 00790; 43249; 49321; 49440; 80048; 80053; 85025; 85027; 85610; 85730; 88305; 88312; 88331; 88360; 92610; 99285; C1726; C9113; G0378; G8996; G8997; G8998; J0690; J1170; J1644; J2250; J2405; J2710; J3010; J3480; J7030

== ENCOUNTER 2016-08-02 13:41 | Emergency (ER) | payer OTHER ==
[~2016-08-02] VITALS: Ht 177.8 cm; Wt 45.7 kg
[~2016-08-02 13:41] MED LIST changes: +B COTAB3 PO; -CARB6.5S5 EACH EAR; +JEVILIQ12 G-TUBE; +NUTR-265 PO; +ONE-TAB14 PO
[2016-08-02 13:43] VITALS: BP 132/95; PULSE 115; RESP 16; TEMP 97.3; O2SAT 99
[2016-08-02] MEDS ORDERED: DIATRIZOATE MEGLUM/DIATRIZOATE SOD 120 ML BTL (for RAD DIAG) G-TUBE ONE (14:42)
--- NOTE | 2016-08-02 15:05 | RADHPO ---
EXAM DATE/TIME: 08/02/2016 14:36 [facility] COMPARISON: No previous studies available for comparison. INDICATIONS : Feeding tube leaking, started today. MEDICAL HISTORY : Gastroesophageal adenocarcinoma. SURGICAL HISTORY : Appendectomy. Tonsillectomy. Vasectomy. Feeding tube 2 weeks ago. ENCOUNTER: Initial ACUITY: 1 day PAIN SCORE: 0/10 LOCATION: Abdomen. FINDINGS: Barium has been injected through the indwelling gastric tube and demonstrates filling of the stomach. No extravasation is identified to suggest leak or displacement from the tube. No bowel obstruction or ileus is noted. Degenerative changes are noted involving the lumbar and lower thoracic spine. M ild degenerative changes are noted involving hip joints bilaterally. CONCLUSION: 1. No bowel obstruction, ileus or perforation. 2. Gastric tube appears to be in good position in the stomach. No extravasation is identified. Satinder De Los Santos MD on August 02, 2016 at 14:50 Board Certified Radiologist. This report was verified electronically.
--- NOTE | 2016-08-02 15:08 | PD ---
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 Patient reports today upon waking from a nap he noticed clear drainage on his shirt from the site of his gastrotomy tube. He reports normal feeding and flushing of the tube since placement. He reports he administered one can of tube feeding at 11 AM without difficulty. He denies pain at the site. He denies fever, chills, sweating, abdominal pain, nausea or vomiting. PFSH Past Medical History Narrative Medical Significant For adenocarcinoma with esophageal strictures. Gastrotomy tube placement 6217. Cancer: Yes (ESOPHAGEAL CANCER) Cardiovascular Problems: No Chemotherapy: Yes (IN THE LAST MONTH) Diabetes: No Endocrine: No Gastrointestinal Disorders: Yes (GAS PAINS) Genitourinary: No Hepatitis: No Hiatal Hernia: No Immune Disorder: No Medical other: Yes (PT STATES HAS MARKINGS ALREADY TO START TX NEXT WEEK FOR CA ) Musculoskeletal: No Neurologic: No Psychiatric: No Reproductive: No Respiratory: No Radiation Therapy: Yes (IN THE LAST MONTH) Thyroid Disease: No Past Surgical History Abdominal Surgery: Yes (APPY) AICD: No Appendectomy: Yes Cardiac Surgery: No Ear Surgery: No Endocrine Surgery: No Eye Surgery: No Genitourinary Surgery: No Gynecologic Surgery: No Joint Replacement: No Oral Surgery: No Pacemaker: No Thoracic Surgery: No Tonsillectomy: Yes Other Surgery: Yes (APPENDECTOMY, TONSILECTOMY) Social History Alcohol Use: No Tobacco Use: Yes (1/2PPD) Substance Use: No Allergies-Medications (Allergen,Severity, Reaction): Coded Allergies: No Known Allergies (Unverified , 08/02/16) Reported Meds & Prescriptions Reported Meds & Active Scripts Active No Active Prescriptions or Reported Medications Review of Systems Except as stated in HPI: all other systems reviewed are Neg Physical Exam Narrative GENERAL: Alert, frail male. SKIN: Focused skin assessment warm/dry. HEAD: Atraumatic. Normocephalic. EYES: Pupils equal and round. No scleral icterus. No injection or drainage. ENT: No nasal bleeding or discharge. Mucous membranes pink and moist. NECK: Trachea midline. No JVD. CARDIOVASCULAR: Regular rate and rhythm. No murmur appreciated. RESPIRATORY: No accessory muscle use. Clear to auscultation. Breath sounds equal bilaterally. GASTROINTESTINAL: Abdomen soft, non-tender, nondistended. Hepatic and splenic margins not palpable. Gastrotomy tube present mid abdomen. No drainage at site of tube. No erythema or inflammation surrounding the tube. MUSCULOSKELETAL: No obvious deformities. No clubbing. No cyanosis. No edema. NEUROLOGICAL: Awake and alert. No obvious cranial nerve deficits. Motor grossly within normal limits. Normal speech. PSYCHIATRIC: Appropriate mood and affect; insight and judgment normal. Data Data Last Documented VS Vital Signs Date Time Temp Pulse Resp B/P Pulse Ox O2 Delivery O2 Flow Rate FiO2 08/02/16 13:43 97.3 115 16 132/95 99 Orders Abdomen, Kub Only (08/02/16 ) Diatrizoate Liq (Md Debra Dunhamq) (08/02/16 14:42) MDM Medical Decision Making Medical Screen Exam Complete: Yes Emergency Medical Condition: Yes Differential Diagnosis Drainage from gastrotomy tube, G-tube displacement Narrative Course 50-year-old male with history of recent gastronomy tube placement presents to the emergency department for evaluation of drainage from the site. Patient reports an isolated episode of clear drainage on his shirt at the site of the G- tube approximately one hour ago. Currently there is no drainage. Patient reports the tube is flushing without difficulty. There is no evidence of infection around the site. His abdomen is nontender. X-ray to verify G-tube placement pending. Abdominal X-ray: Confirm G-tube placement into the stomach without evidence extravasation. Diagnostic findings were discussed with patient. Return precautions discussed. Patient agrees to follow-up with GI at his scheduled appointment. Diagnosis Primary Impression: Encounter for imaging study to confirm gastrojejunal tube placement Additional Impression: Drainage from gastrostomy tube site Referrals: Php Architect Additional Instructions: Return to the emergency department if he developed fever, abdominal pain, nausea /vomiting, pain at the site of the tube, difficulty administering feedings or flushing the tube. Follow-up with the optician apprentice at your scheduled appointment Scripts No Active Prescriptions or Reported Meds Disposition: 01 DISCHARGE HOME Condition: Stable Rossi Ceballos Aug 02, 2016 15:07
== END 2016-08-02 15:24 | disposition home or self-care (01) ==
LOC: PHEFT 13:41
DX: K94.29 Other complications of gastrostomy (principal); F17.210 Nicotine dependence, cigarettes, uncomplicated; Z85.01 Personal history of malignant neoplasm of esophagus
CPT/HCPCS: 74000; 99283; Q9963

== ENCOUNTER 2016-08-17 07:31 | Day surgery (SDC) | payer OTHER ==
[~2016-08-17] VITALS: Ht 177.8 cm; Wt 45.5 kg
[2016-08-17 07:46] VITALS: BP 112/80; PULSE 107; RESP 18; TEMP 97.7; O2SAT 96
[2016-08-17] MEDS ORDERED: ceFAZolin 2 GM PREMIX 50 ML - implanted port/tunneled catheter insertion IV SCH (08:15)
[2016-08-17 08:27] LABS: APTT (PATIENT) 32.3 SEC (24.3-30.1); PROTHROMBIN TIME - PATIENT 11.4 SEC (9.8-11.6)
[2016-08-17] MEDS: VANCOMYCIN 1000 MG/NS 250 ML - implanted port/tunneled catheter IV SCH ×4 (08:53→10:56)
[2016-08-17] MEDS ORDERED: MIDAZOLAM HCL 5 MG/5 ML VIAL ONE (09:45)
[2016-08-17] MEDS ORDERED: fentaNYL CITRATE 250 MCG/5 ML AMP ONE (09:46)
[2016-08-17] MEDS ORDERED: LIDOCAINE 1%/EPINEPHrine 1:100,000 SOLN 20 ML VIAL ONE (09:54)
--- NOTE | 2016-08-17 10:28 | PD.RAD ---
Post Procedure Progress Note Pre Procedure Diagnosis: (1) Adenocarcinoma carcinomatosis Post Procedure Diagnosis: (1) Adenocarcinoma carcinomatosis Procedure Date: Aug 17, 2016 Supervising Radiologist: Richmond Villeda Proceduralist/Assist: Rita Barnes, RT(R)(CV), Melani Navarro RT(R) Anesthesia: Conscious Sedation Plan of Activity Patient to Unit: ROPU Patient Condition: Good Additional Comments: Placed peritoneal aspira catheter. See PACS Report for procedural detail/treatment Richmond Villeda MD Aug 17, 2016 10:28
[2016-08-17 10:45] VITALS: BP 102/69; PULSE 99; RESP 18; TEMP 98.4; O2SAT 95
[2016-08-17 11:00] VITALS: BP 98/72; PULSE 98; RESP 16; O2SAT 95
[2016-08-17 11:15] VITALS: BP 96/74; PULSE 100; RESP 16; O2SAT 95
[2016-08-17 11:45] VITALS: BP 105/78; PULSE 102; RESP 16; O2SAT 93
[2016-08-17 12:15] VITALS: BP 94/68; PULSE 97; RESP 18; O2SAT 96
--- NOTE | 2016-08-17 14:15 | RADRPT ---
EXAM DATE/TIME: 08/17/2016 09:43 [facility] COMPARISON: No previous studies available for comparison. INDICATIONS : Patient with carcinomatosis and malignant ascites in need of Peritoneal drainage catheter. MEDICAL HISTORY : Gastroesophageal adenocarcinoma with peritoneal mets, Dysphagia, GERD, Chemotherapy SURGICAL HISTORY : Appendectomy, Tonsillectomy, G-tube placement, Port placement ENCOUNTER: Subsequent ACUITY: 1 month PAIN SCORE: 0/10 FLUORO TIME: 1 minutes IMAGE SERIES: 0 SEDATION TIME: 30 minutes ACCESS: Left lower quadrant SEDATION: 1.) 3 mg midazolam (Versed) IV 2.) 150 mcg fentanyl (Sublimaze) IV Prophylactic antibiotics were administered with appropriate pre-procedure timing. Vancomycin within 2 hours of procedure, Ancef (or alternative) within 1 hour of procedure. DEVICE: 1. 15 Sinhala single lumen Aspira drainage catheter PROCEDURE : 1. Placement of peritoneal tunneled Aspira drainage catheter 2. Conscious sedation with continuous EKG and Oximetry monitoring. The risks, benefits and alternatives to the procedure were explained and verbal and written consent w as obtained. The site was prepped in sterile fashion. Full sterile technique was used, including ca p, mask, sterile gloves and gown and a large sterile sheet. Hand hygiene and 2% chlorhexidine and Be tadine was utilized per protocol for cutaneous antisepsis with appropriate dry time for site. The sk in and subcutaneous tissues were infiltrated with local anesthetic solution. Appropriate window in the left lower quadrant was marked with fluoroscopic guidance. Skin was prepped and draped in usual sterile fashion. 1% height institution was injected for local anesthesia. 18 gau ge needle was advanced under careful ultrasound guidance into the peritoneum and position confirmed w ith drainage of chylous appearing fluid. Wire was advanced through the needle and coiled in the left lower quadrant. A site approximately 7 cm medial and anterior to the access site was then marked. Upp er stomach and solution was injected for anesthesia. A small incision was made and the Aspira cathete r was tunneled from this site to the peritoneal access site. The tract was serially dilated and a 15. 5 Sinhala Aspira drainage catheter was advanced into the peritoneum through a peel-away sheath. Cathet er demonstrated appropriate function and was noted coiled in the left lower quadrant. Catheter was th en connected to suction and approximately 1700 mL of chylous appearing peritoneal fluid was removed. Conscious sedation was performed with the prescribed dosages and duration as above in the presence of an independent trained radiology nurse to assist in the monitoring of the patient. EKG and oximetry remained stable throughout the procedure. CONCLUSION: 1. Uncomplicated placement of peritoneal tunneled Aspira drainage catheter for treatment of malignant ascites. Richmond Villeda MD on August 17, 2016 at 14:05 Board Certified Radiologist. This report was verified electronically.
== END 2016-08-17 13:20 | disposition home or self-care (01) ==
LOC: HROP 07:31 → HRIP 07:41 → HROP 13:20
PROVIDERS: ATTEND Surgery
DX: C80.0 Disseminated malignant neoplasm, unspecified (principal); R18.0 Malignant ascites; K21.9 Gastro-esophageal reflux disease without esophagitis; Z85.01 Personal history of malignant neoplasm of esophagus; Z85.89 Personal history of malignant neoplasm of other organs and systems
CPT/HCPCS: 49418; 85610; 85730; 99152; 99153; C1729; J0690; J1642; J2250; J3010; J3370; J7050

== ENCOUNTER 2016-08-26 08:43 | Emergency (ER) | payer OTHER ==
[~2016-08-26] VITALS: Ht 177.8 cm; Wt 42.3 kg
[2016-08-26] VITALS (7 sets, daily range): BP systolic 109–134; BP diastolic 82–91; PULSE 98–112; RESP 16–20; TEMP 97.4; O2SAT 96–99
[2016-08-26] MEDS ORDERED: SODIUM CHLOR 0.9% 1000 ML INJ 1,000 ML IV SCH (09:10)
[2016-08-26] MEDS ORDERED: MORPHINE SULFATE 4 MG/ML INJ IV PUSH ONE (09:15)
[2016-08-26] MEDS ORDERED: ONDANSETRON HCL 4 MG/2 ML VIAL IVP ONE (09:15)
--- NOTE | 2016-08-26 09:22 | PD ---
HPI Chief Complaint: Abdominal Pain Time Seen by Provider: 08:58 Travel History International Travel<30 days: No Contact w/Intl Traveler<30days: No Traveled to known affect area: No History of Present Illness HPI 50-year-old male complains of abdominal pain and peritoneal catheter leaking. Patient has history of gastroesophageal adenoma with carcinomatosis with ascites. Patient has been seen by Dr. Wilcox, oncologist, Dr. cardona, radiology oncologist and Dr. Nathan GI specialist. Patient status post peritoneal aspira catheter placement on August 17, 2016 by interventional radiologist. Patient states that he started having fluid leaking from the catheter since then. Patient states that he started having diffuse cramping and sharp abdominal pain for the past several days. Patient states that the pain diffuse over the abdomen. Patient denies any pain radiation. Patient denies any nausea vomiting diarrhea. Patient denies any fever chills. On a scale of 1-10 the pain is a 5. PFSH Past Medical History Cancer: Yes (ESOPHAGEAL CANCER) Cardiovascular Problems: No Chemotherapy: Yes Diabetes: No Endocrine: No Gastrointestinal Disorders: Yes (GAS PAINS) Genitourinary: No Hepatitis: No Hiatal Hernia: No Immune Disorder: No Medical other: Yes Musculoskeletal: No Neurologic: No Psychiatric: No Reproductive: No Respiratory: No Immunizations Current: No Radiation Therapy: Yes (IN THE LAST MONTH) Thyroid Disease: No Past Surgical History Abdominal Surgery: Yes (APPY, FEEDING TUBE) AICD: No Appendectomy: Yes Cardiac Surgery: No Ear Surgery: No Endocrine Surgery: No Eye Surgery: No Genitourinary Surgery: Yes (INDWELLING CATH) Gynecologic Surgery: No Joint Replacement: No Oral Surgery: No Pacemaker: No Thoracic Surgery: No Tonsillectomy: Yes Other Surgery: Yes (APPENDECTOMY, TONSILECTOMY) Social History Alcohol Use: No Tobacco Use: Yes (1/2PPD) Substance Use: No Allergies-Medications (Allergen,Severity, Reaction): Coded Allergies: No Known Allergies (Unverified , 08/26/16) Reported Meds & Prescriptions Reported Meds & Active Scripts Active [place] (Hydrocodone-Acetaminophen) 5-325 mg Tab 1 Tab PO Q6H PRN Cipro (Ciprofloxacin HCl) 500 Mg Tab 500 Mg PO BID Review of Systems General / Constitutional: No: Fever Eyes: No: Visual changes HENT: No: Headaches Cardiovascular: No: Chest Pain or Discomfort Respiratory: No: Shortness of Breath Gastrointestinal: Positive: Abdominal Pain Genitourinary: No: Dysuria Musculoskeletal: No: Pain Skin: No Rash Neurologic: No: Weakness Psychiatric: No: Depression Endocrine: No: Polydipsia Hematologic/Lymphatic: No: Easy Bruising Physical Exam Narrative GENERAL: Well-nourished, well-developed patient. SKIN: Focused skin assessment warm/dry. HEAD: Normocephalic. EYES: No scleral icterus. No injection or drainage. NECK: Supple, trachea midline. No JVD or lymphadenopathy. CARDIOVASCULAR: Regular rate and rhythm without murmurs, gallops, or rubs. RESPIRATORY: Breath sounds equal bilaterally. No accessory muscle use. GASTROINTESTINAL: Abdomen soft, nondistended. Patient has mild to moderate diffuse tenderness over the abdomen. No rebound tenderness. No mass. Peritoneal catheter in place. Patient has a small opening lateral aspect of the abdominal wall that draining clear fluid. The draining hole is about 10 cm away from the peritoneal catheter entrance. No redness no heat noted. The fluid is clear. MUSCULOSKELETAL: No cyanosis, or edema. BACK: Nontender without obvious deformity. No CVA tenderness. Neurologic exam normal. Data Data Last Documented VS Vital Signs Date Time Temp Pulse Resp B/P Pulse Ox O2 Delivery O2 Flow Rate FiO2 08/26/16 12:14 98 18 120/87 97 08/26/16 08:46 97.4 Orders Complete Blood Count With Diff (08/26/16 09:10) Comprehensive Metabolic Panel (08/26/16 09:10) Lipase (08/26/16 09:10) Prothrombin Time / Inr (Pt) (08/26/16 09:10) Act Partial Throm Time (Ptt) (08/26/16 09:10) Urinalysis - C+S If Indicated (08/26/16 09:10) Ct Abd/Pel W Iv Contrast(Rout) (08/26/16 09:10) Iv Access Insert/Monitor (08/26/16 09:10) Ecg Monitoring (08/26/16 09:10) Oximetry (08/26/16 09:10) Ondansetron Inj (Zofran Inj) (08/26/16 09:15) Sodium Chlor 0.9% 1000 Ml Inj (Ns 1000 M (08/26/16 09:10) Morphine Inj (Morphine Inj) (08/26/16 09:30) Iohexol 350 Inj (Omnipaque 350 Inj) (08/26/16 10:29) Levofloxacin (Levaquin) (08/26/16 13:00) Labs Laboratory Tests Test 08/26/16 08:15 White Blood Count 5.1 TH/MM3 Red Blood Count 4.30 MIL/MM3 Hemoglobin 13.3 GM/DL Hematocrit 38.7 % Mean Corpuscular Volume 89.9 FL Mean Corpuscular Hemoglobin 30.8 PG Mean Corpuscular Hemoglobin 34.3 % Concent Red Cell Distribution Width 13.1 % Platelet Count 462 TH/MM3 Mean Platelet Volume 6.3 FL Neutrophils (%) (Auto) 76.5 % Lymphocytes (%) (Auto) 4.8 % Monocytes (%) (Auto) 17.3 % Eosinophils (%) (Auto) 1.0 % Basophils (%) (Auto) 0.4 % Neutrophils # (Auto) 3.9 TH/MM3 Lymphocytes # (Auto) 0.2 TH/MM3 Monocytes # (Auto) 0.9 TH/MM3 Eosinophils # (Auto) 0.1 TH/MM3 Basophils # (Auto) 0.0 TH/MM3 CBC Comment DIFF FINAL Differential Comment Prothrombin Time 10.9 SEC Prothromb Time International 1.0 RATIO Ratio Activated Partial 31.5 SEC Thromboplast Time Sodium Level 130 MEQ/L Potassium Level 3.7 MEQ/L Chloride Level 96 MEQ/L Carbon Dioxide Level 26.9 MEQ/L Anion Gap 7 MEQ/L Blood Urea Nitrogen 13 MG/DL Creatinine 0.40 MG/DL Estimat Glomerular Filtration 228 ML/MIN Rate Random Glucose 105 MG/DL Calcium Level 8.5 MG/DL Total Bilirubin 0.5 MG/DL Aspartate Amino Transf 17 U/L (AST/SGOT) Alanine Aminotransferase 24 U/L (ALT/SGPT) Alkaline Phosphatase 204 U/L Total Protein 6.3 GM/DL Albumin 2.1 GM/DL Lipase 122 U/L [facility] Medical Decision Making Medical Screen Exam Complete: Yes Emergency Medical Condition: Yes Interpretation(s) Last Impressions Abdomen/Pelvis CT 08/26/16 0910 Signed Impressions: Service Date/Time: August 10:16 - CONCLUSION: 1. There is a peritoneal dialysis catheter located in the lower pelvis. There is a moderate amount of free fluid throughout the abdomen and pelvis. 2. There appears to be some mild hydronephrosis of the left kidney which is new compared to the prior exam. 3. Stable 1 cm cystic lesion in the uncinate process of the head of the pancreas. 4. Stable 8mm low density lesion in the spleen. 5. Stable thickening involving the distal esophagus. 6. Gastrostomy tube in the stomach. Syed Whaley MD 11:19 AM. CBC with WBC 5.1. Hemoglobin 13.3 hematocrit 30.7. Platelets 462. 76 neutrophil. Sodium 1:30. Alkaline phosphatase 204. Differential Diagnosis Differential diagnosis including pain from gastroesophageal adenocarcinoma metastasis, gastritis, PUD, pancreatitis, colitis, UTI, pyelonephritis, nephrolithiasis, peritonitis. Narrative Course 50-year-old male with abdominal pain and drinking fluid from an opening on the abdominal wall. History of gastroesophageal adenocarcinoma and abdominal ascites. Normal saline solution 1 25 cc an hour. Morphine 2 mg IV. Zofran 4 mg IV. 12:51 PM. I spoke with Dr. Wilcox and GI physician covering Dr. Nathan. Advised Cipro and pain medication and follow-up in the office. Levaquin 750 mg by mouth given. Diagnosis Primary Impression: Abdominal pain Qualified Code: R10.9 - Abdominal pain, unspecified location Additional Impression: Adenocarcinoma carcinomatosis Patient Instructions: General Instructions Additional Instructions: Cipro as directed. Hydrocodone as needed for pain. Follow up with GI specialist and Dr. Wilcox oncologist. Return immediately if fever, persistent pain or worse. Med/Other Pt SpecificInfo: Prescription(s) given Scripts Hydrocodone-Acetaminophen ([place])5-325 mg Tab1 Tab PO Q6H PRN (PAIN) #30 TAB Ref 0 Prov:Gera Ordaz MD 08/26/16 Ciprofloxacin (Cipro)500 Mg [id number] Mg PO BID #20 TAB Ref 0 Prov:Gera Ordaz MD 08/26/16 Disposition: 01 DISCHARGE HOME Condition: Stable Gera Ordaz MD Aug 26, 2016 09:22
[2016-08-26 09:28] LABS: AUTOMATED NEUTROPHIL # 3.9 TH/MM3 (1.8-7.7); BASOPHIL % 0.4 % (0.0-2.0); EOSINOPHIL # 0.1 TH/MM3 (0-0.4); HEMATOCRIT 38.7 % (39.0-51.0); HEMO FLAGS DIFF FINAL; LYMPH % 4.8 % (9.0-44.0); LYMPHOCYTE # 0.2 TH/MM3 (1.0-4.8); MEAN CELL VOLUME 89.9 FL (80.0-100.0); MEAN CORPUSCULAR HEMOGLOBIN 30.8 PG (27.0-34.0); MEAN CORPUSCULAR HGB CONC 34.3 % (32.0-36.0); MONO % 17.3 % (0.0-8.0); NEUT % 76.5 % (16.0-70.0); PLATELET COUNT 462 TH/MM3 (150-450); RED CELL DISTRIBUTION WIDTH 13.1 % (11.6-17.2); WHITE BLOOD COUNT 5.1 TH/MM3 (4.0-11.0)
[2016-08-26] MEDS ORDERED: MORPHINE SULFATE 8 MG/ML INJ IV PUSH ONE (09:30)
[2016-08-26 09:44] LABS: APTT (PATIENT) 31.5 SEC (24.3-30.1); PROTHROMBIN TIME - PATIENT 10.9 SEC (9.8-11.6)
[2016-08-26 10:09] LABS: BICARBONATE 26.9 MEQ/L (21.0-32.0)
[2016-08-26 10:12] LABS: ALT (GPT) 24 U/L (12-78); AST (GOT) 17 U/L (15-37); GLOMERULAR FILTRATION RATE 228 ML/MIN (>89)
[2016-08-26 10:15] LABS: ALKALINE PHOSPHATASE 204 U/L (45-117); ANION GAP 7 MEQ/L (5-15); CHLORIDE 96 MEQ/L (98-107); POTASSIUM 3.7 MEQ/L (3.5-5.1); SODIUM (NA) 130 MEQ/L (136-145)
[2016-08-26 10:25] LABS: BLOOD UREA NITROGEN 13 MG/DL (7-18)
[2016-08-26] MEDS ORDERED: IOHEXOL 350 MG/ML 10 ML VIAL (for RAD DIAG) IV ONE (10:29)
[2016-08-26 10:34] LABS: TOTAL BILIRUBIN ADULT 0.5 MG/DL (0.2-1.0)
--- NOTE | 2016-08-26 10:47 | RADRPT ---
EXAM DATE/TIME: 08/26/2016 10:16 [facility] COMPARISON: CT ABDOMEN & PELVIS W CONTRAST, May 21, 2016, 14:55. INDICATIONS : Diffuse abdominal pain. Peritoneal catheter leaking. IV CONTRAST: 80 cc Omnipaque 350 (iohexol) IV ORAL CONTRAST: No oral contrast ingested. RADIATION DOSE: 4.88 CTDIvol (mGy) MEDICAL HISTORY : Gastroesophageal cancer. SURGICAL HISTORY : Appendectomy. Feeding tube. ENCOUNTER: Initial ACUITY: 1 week PAIN SCALE: 5/10 LOCATION: Diffuse abdomen. TECHNIQUE: Volumetric scanning of the abdomen and pelvis was performed. Using automated exposure control and ad justment of the mA and/or kV according to patient size, radiation dose was kept as low as reasonably achievable to obtain optimal diagnostic quality images. DICOM format image data is available electro nically for review and comparison. FINDINGS: LOWER LUNGS: The visualized lower lungs are clear. LIVER: Homogeneous density without lesion. There is no dilation of the biliary tree. No calcified gallston es. There is ascites in the upper abdomen. This is most likely related to patients peritoneal dialysi s catheter. SPLEEN: Stable 8mm low density lesion in the spleen. PANCREAS: Stable 1 cm cystic lesion in the uncinate process of the head of the pancreas. KIDNEYS: Normal in size and shape. The right kidney remains stable. There appears to be some hydronephrosis of the left collecting system compared to the prior study.. ADRENAL GLANDS: Within normal limits. VASCULAR: There is no aortic aneurysm. Atherosclerotic changes. BOWEL/MESENTERY: The stomach, small bowel, and colon demonstrate no acute abnormality. There is no free intraperitone al air. There is evidence of fluid throughout the abdomen and pelvis most likely related to the perit steen dialysis catheter located in the lower pelvis. There continues to be stable thickening involvin g the distal esophagus. There is a gastrostomy tube in the stomach. ABDOMINAL WALL: Within normal limits. RETROPERITONEUM: There is no lymphadenopathy. BLADDER: No wall thickening or mass. REPRODUCTIVE: Within normal limits. INGUINAL: There is no lymphadenopathy or hernia. MUSCULOSKELETAL: Within normal limits for patient age. CONCLUSION: 1. There is a peritoneal dialysis catheter located in the lower pelvis. There is a moderate amount of free fluid throughout the abdomen and pelvis. 2. There appears to be some mild hydronephrosis of the left kidney which is new compared to the prior exam. 3. Stable 1 cm cystic lesion in the uncinate process of the head of the pancreas. 4. Stable 8mm low density lesion in the spleen. 5. Stable thickening involving the distal esophagus. 6. Gastrostomy tube in the stomach. Syed Whaley MD on August 26, 2016 at 10:36 Board Certified Radiologist. This report was verified electronically.
[2016-08-26] MEDS ORDERED: CIPR-9 PO (12:54)
[2016-08-26] MEDS ORDERED: NORC5TAB PO (12:54)
[2016-08-26] MEDS ORDERED: LEVOFLOXACIN 750 MG TAB PO ONE (13:00)
== END 2016-08-26 13:23 | disposition home or self-care (01) ==
LOC: PHED 08:43
DX: C80.0 Disseminated malignant neoplasm, unspecified (principal)
CPT/HCPCS: 74177; 80053; 83690; 85025; 85610; 85730; 96361; 96374; 96375; 99285; J2270; J2405; J7030; Q9967

== ENCOUNTER 2016-08-30 13:51 | Inpatient (IN) | payer OTHER ==
[~2016-08-30] VITALS: Ht 177.8 cm; Wt 40.3 kg
[~2016-08-30 13:51] MED LIST changes: -B COTAB3 PO; +CIPR-9 PO; -JEVILIQ12 G-TUBE; +NORC5TAB PO; -NUTR-265 PO; -ONE-TAB14 PO
[2016-08-30 13:58] VITALS: BP 97/62; O2SAT 93
--- NOTE | 2016-08-30 14:21 | PD ---
HPI Chief Complaint: Pain: Acute or Chronic Time Seen by Provider: 14:21 Travel History International Travel<30 days: No Contact w/Intl Traveler<30days: No Traveled to known affect area: No History of Present Illness HPI 50-year-old male with history of esophageal adenocarcinoma presents to emergency department for evaluation of severe abdominal pain. Patient states he has had generalized pain however today developed severe sharp left-sided pain that felt as though something "exploded." Patient is a new hospice patient. He states that he did receive medications at home for his pain, but they just were filled and he and his daughters did not feel comfortable managing this at this time. He also felt that the pain was something different than what his typical pain is. Denies any fever or chills. Denies any vomiting. Patient states he is no longer undergoing treatment for his cancer. Patient states he has been a full code up to this point, but states he does not want to "prolong this any longer." After conversation with the patient and nurse at bedside, Mookie Ortiz RN, patient wishes to become a no code. He wants absolutely no aggressive intervention, and verbalizes full understanding of his prognosis. PFSH Past Medical History Hx Anticoagulant Therapy: Yes Cancer: Yes (ESOPHAGEAL CANCER) Cardiovascular Problems: No Chemotherapy: Yes Diabetes: No Endocrine: No Gastrointestinal Disorders: Yes (ascites) Genitourinary: No Hepatitis: No Hiatal Hernia: No Immune Disorder: No Medical other: Yes (PT STATES HAS MARKINGS ALREADY TO START TX NEXT WEEK FOR CA ) Musculoskeletal: No Neurologic: No Psychiatric: No Reproductive: No Respiratory: No Immunizations Current: No Radiation Therapy: Yes (IN THE LAST MONTH) Thyroid Disease: No Past Surgical History Abdominal Surgery: Yes (APPY, FEEDING TUBE) AICD: No Appendectomy: Yes Cardiac Surgery: No Ear Surgery: No Endocrine Surgery: No Eye Surgery: No Genitourinary Surgery: Yes (INDWELLING CATH) Gynecologic Surgery: No Joint Replacement: No Oral Surgery: No Pacemaker: No Thoracic Surgery: No Tonsillectomy: Yes Other Surgery: Yes (APPENDECTOMY, TONSILECTOMY) Social History Alcohol Use: No Tobacco Use: No (1/2PPD) Substance Use: No Allergies-Medications (Allergen,Severity, Reaction): Coded Allergies: No Known Allergies (Unverified , 08/26/16) Reported Meds & Prescriptions Reported Meds & Active Scripts Active [place] (Hydrocodone-Acetaminophen) 5-325 mg Tab 1 Tab PO Q6H PRN Cipro (Ciprofloxacin HCl) 500 Mg Tab 500 Mg PO BID Review of Systems Except as stated in HPI: all other systems reviewed are Neg Physical Exam Narrative GENERAL: A Thick appearing male patient, lying in bed, in moderate distress secondary to pain and shortness of breath. SKIN: Focused skin assessment warm/dry. HEAD: Atraumatic. Normocephalic. EYES: Pupils equal and round. No scleral icterus. No injection or drainage. ENT: No nasal bleeding or discharge. Mucous membranes pink and moist. NECK: Trachea midline. No JVD. CARDIOVASCULAR: Tachycardic rate and rhythm. RESPIRATORY: No accessory muscle use. Diminished left lower base, otherwise clear to auscultation. Breath sounds equal bilaterally. GASTROINTESTINAL: Abdomen distended, firm, tender. Hypoactive bowel sounds. MUSCULOSKELETAL: No obvious deformities. No clubbing. No cyanosis. No edema. Skin is mottled in the distal lower extremities extending to the mid calf. NEUROLOGICAL: Awake and alert. No obvious cranial nerve deficits. Motor grossly within normal limits. Normal speech. PSYCHIATRIC: Appropriate mood and affect; insight and judgment normal. Data Data Last Documented VS Vital Signs Date Time Temp Pulse Resp B/P Pulse Ox O2 Delivery O2 Flow Rate FiO2 08/30/16 15:30 103 87/53 08/30/16 13:58 93 Orders Iv Access Insert/Monitor (08/30/16 14:16) Complete Blood Count With Diff (08/30/16 14:16) Basic Metabolic Panel (Bmp) (08/30/16 14:16) Chest, Single Ap (08/30/16 ) Hydromorphone Pf Inj (Dilaudid Pf Inj) (08/30/16 14:30) Sodium Chlorid 0.9% 500 Ml Inj (Ns 500 M (08/30/16 14:30) Sodium Chlor 0.9% 1000 Ml Inj (Ns 1000 M (08/30/16 14:45) Morphine Inj (Morphine Inj) (08/30/16 14:45) Ct Abd/Pel W/O Iv Contrast (08/30/16 ) Protein Corrected Calcium(Pcc) (08/30/16 14:40) Lorazepam Inj (Ativan Inj) (08/30/16 17:00) Morphine Inj (Morphine Inj) (08/30/16 17:00) Admit Order (Ed Use Only) (08/30/16 17:52) Labs Laboratory Tests Test 08/30/16 14:40 White Blood Count 3.2 TH/MM3 Red Blood Count 4.46 MIL/MM3 Hemoglobin 13.6 GM/DL Hematocrit 41.2 % Mean Corpuscular Volume 92.3 FL Mean Corpuscular Hemoglobin 30.6 PG Mean Corpuscular Hemoglobin 33.1 % Concent Red Cell Distribution Width 13.9 % Platelet Count 398 TH/MM3 Mean Platelet Volume 7.9 FL Neutrophils (%) (Auto) 96.5 % Lymphocytes (%) (Auto) 2.1 % Monocytes (%) (Auto) 1.1 % Eosinophils (%) (Auto) 0.1 % Basophils (%) (Auto) 0.2 % Neutrophils # (Auto) 3.1 TH/MM3 Lymphocytes # (Auto) 0.1 TH/MM3 Monocytes # (Auto) 0.0 TH/MM3 Eosinophils # (Auto) 0.0 TH/MM3 Basophils # (Auto) 0.0 TH/MM3 CBC Comment DIFF FINAL Differential Comment Sodium Level 132 MEQ/L Potassium Level 4.2 MEQ/L Chloride Level 96 MEQ/L Carbon Dioxide Level 19.6 MEQ/L Anion Gap 16 MEQ/L Blood Urea Nitrogen 58 MG/DL Creatinine 1.81 MG/DL Estimat Glomerular Filtration 40 ML/MIN Rate Random Glucose 68 MG/DL Calcium Level 6.9 MG/DL Protein Corrected Calcium 8.2 MG/DL Total Protein 4.6 GM/DL MDM Medical Decision Making Medical Screen Exam Complete: Yes Emergency Medical Condition: Yes Medical Record Reviewed: Yes Differential Diagnosis Metastatic disease versus obstruction versus perforation versus electrode abnormality versus actively dying Narrative Course 50-year-old male presents to emergency department for evaluation. Patient appears in pain. His abdomen is distended and firm. He is hypotensive. He is given IV normal saline bolus. I discussed the patient with my attending physician who has also assessed him. She confirmed that the patient wishes to be a DNR. Patient is given morphine IV for pain along with fluid bolus. I have contacted hospice and spoke with Aline in regards to the urgency of getting somebody out here to evaluate the patient and assist in end-of-life care for the patient in the family. She advised that she will "send out the hospital team." [id number] Pena, radiologist. Pt has large amount of free air in his peritoneum. CT is ordered. I have had discussion with the patient's daughters who are at bedside and answered any and all questions to my best ability. I have made them aware of the patient's grave prognosis and likelihood that the patient will survive any surgical intervention. The family verbalizes understanding and does not want aggressive treatment. They want their father to be comfortable. Patient's mother is also bedside. [address] Moeller, general surgeon on-call in regards to the patient's CT scan. He has reviewed the film. I have informed him of the patient's DNR status and the family's understanding of his prognosis despite any aggressive surgical intervention. He is willing to consult and see the patient if the family wishes to move forward with surgical intervention. I have rediscussed options with the family, and they are not interested in aggressive surgical intervention at this time. 1626 Pt is tachypneic, hypotensive, and in pain. I have reached out to THALIA Diaz with hospice palliative care in regards to the patient and recommendations for care/pain control. 1645 Lisa arrives to bedside and assesses the patient. She recommends 1 mg IV ativan every 2 hours PRN and 2mg morphine IV q 30 min prn. She has been in touch with the hospice care team. They will be out to further assess and evaluate for further recommendations of care. 1745 Hospice nursing staff has met and discussed options with family. There is a care center bed available. Despite this, family wishes to stay inpatient at this point, fearful patient will not survive transport. Pt is taken off of the monitor at this time and comfort measures continue. Family is in agreement with this plan of care. Diagnosis Primary Impression: Esophageal cancer Qualified Code: C15.9 - Malignant neoplasm of esophagus, unspecified location Additional Impressions: Peritoneal free air End of life care Admitting Information Admitting Physician Requests: Admit Condition: Stable Irma Munson Aug 30, 2016 14:21
[2016-08-30 14:30] VITALS: BP 74/52; PULSE 106
[2016-08-30] MEDS ORDERED: HYDROmorphone HCL PF 1 MG/ML VIAL IV PUSH ONE (14:30)
[2016-08-30] MEDS ORDERED: SODIUM CHLORID 0.9% 500 ML INJ 500 ML IV ONE (14:30)
[2016-08-30] MEDS ORDERED: SODIUM CHLOR 0.9% 1000 ML INJ 1,000 ML IV ONE (14:45)
[2016-08-30] MEDS ORDERED: MORPHINE SULFATE 8 MG/ML INJ IV PUSH ONE (14:45)
[2016-08-30 15:00] VITALS: BP 87/58; PULSE 104
[2016-08-30 15:23] LABS: AUTOMATED NEUTROPHIL # 3.1 TH/MM3 (1.8-7.7); BASOPHIL % 0.2 % (0.0-2.0); EOSINOPHIL % 0.1 % (0.0-4.0); HEMATOCRIT 41.2 % (39.0-51.0); HEMO FLAGS DIFF FINAL; LYMPH % 2.1 % (9.0-44.0); LYMPHOCYTE # 0.1 TH/MM3 (1.0-4.8); MEAN CELL VOLUME 92.3 FL (80.0-100.0); MEAN CORPUSCULAR HEMOGLOBIN 30.6 PG (27.0-34.0); MEAN CORPUSCULAR HGB CONC 33.1 % (32.0-36.0); MONO % 1.1 % (0.0-8.0); NEUT % 96.5 % (16.0-70.0); PLATELET COUNT 398 TH/MM3 (150-450); RED BLOOD COUNT 4.46 MIL/MM3 (4.50-5.90); RED CELL DISTRIBUTION WIDTH 13.9 % (11.6-17.2); WHITE BLOOD COUNT 3.2 TH/MM3 (4.0-11.0)
[2016-08-30 15:30] VITALS: BP 87/53; PULSE 103
--- NOTE | 2016-08-30 15:35 | RADRPT ---
EXAM DATE/TIME: 08/30/2016 14:13 [facility] COMPARISON: CT ABDOMEN & PELVIS W CONTRAST, August 26, 2016, 10:16. INDICATIONS : Dyspnea. MEDICAL HISTORY : Carcinoma, esophageal. SURGICAL HISTORY : Appendectomy. Feeding tube. Chemotherapy port, right. ENCOUNTER: Initial ACUITY: 1 day PAIN SCORE: 0/10 LOCATION: Bilateral chest FINDINGS: Examination is abnormal. There is a large amount of free intraperitoneal air. There is a right IJ in good position. Lungs are clear. Cardiomediastinal contours are within normal limits. Bony thorax is i ntact. CONCLUSION: 1. Large amount of intraperitoneal free air. Findings were personally discussed with Irlanda Villeda MD on August 30, 2016 at 15:27 Board Certified Radiologist. This report was verified electronically.
[2016-08-30 16:04] LABS: BICARBONATE 19.6 MEQ/L (21.0-32.0); POTASSIUM 4.2 MEQ/L (3.5-5.1)
[2016-08-30 16:25] LABS: CALCIUM-PROTEIN CORRECTED 8.2 MG/DL (8.5-10.1)
--- NOTE | 2016-08-30 16:36 | RADRPT ---
EXAM DATE/TIME: 08/30/2016 15:56 [facility] COMPARISON: CT THORAX W CONTRAST, May 21, 2016, 14:55. CT ABDOMEN & PELVIS W CONTRAST, August 26, 2016, 10:16. CHEST SINGLE AP, August 30, 2016, 14:13. INDICATIONS : Abdominal pain, history of esophageal cancer. ORAL CONTRAST: No oral contrast ingested. RADIATION DOSE: 9.96 CTDIvol (mGy) MEDICAL HISTORY : Carcinoma, esophageal. SURGICAL HISTORY : Appendectomy. ENCOUNTER: Initial ACUITY: 1 day PAIN SCALE: 9/10 LOCATION: Bilateral lower quadrant TECHNIQUE: Volumetric scanning of the abdomen and pelvis was performed. Using automated exposure control and adjustment of the mA and/or kV according to patient size, radiation dose was kept as low as reasonably achievable to obtain optimal diagnostic quality images. DICOM format image data is av ailable electronically for review and comparison. FINDINGS: There is a sclerotic lesion possibly a bone island involving the inferior articular process of T 11 on the right almost a centimeter in size, however metastatic disease is not excluded. G-tube is pr esent in the stomach and there is a peritoneal dialysis catheter with moderate amount of fluid throug hout the abdomen and pelvis. Large amount of free intraperitoneal air is present not present on the p rior examination and there is thickening of the distal esophageal wall above the gastroesophageal brady ction which is the patient's known malignancy. There is dilatation of loops of small bowel not presen t previously with maximum diameter of almost 4.4 cm. There is gas and stool throughout the colon down to the rectum. There are tiny nodules left lower lobe not significantly changed since 4 days ago, ho wever not present on the study from April 2016 the largest one measures 4-5 mm in size and the metast atic disease is not excluded.. The rest of the examination has not significantly changed. CONCLUSION: 1. Interval development of extensive free intraperitoneal air. 2. Tiny left lung base nodule is not present on the chest CT from 04/2016 and early metastatic disease is not excluded in this patient with known esophageal malignancy. 3. Interval development of ileus not present 4 days ago. 4. Otherwise not changed. Feliciano Huitron MD on August 30, 2016 at 16:26 Board Certified Radiologist. This report was verified electronically.
[2016-08-30] MEDS ORDERED: LORazepam 2 MG/ML VIAL IV PUSH PRN (17:00)
[2016-08-30] MEDS: MORPHINE SULFATE 4 MG/ML INJ IV PUSH PRN ×2 (17:07→17:52)
[2016-08-30] MEDS ORDERED: HALOPERIDOL 0.5 MG TAB PEG PRN (18:30)
[2016-08-30] MEDS ORDERED: HALOPERIDOL 1 MG TAB PEG PRN (18:30)
[2016-08-30] MEDS ORDERED: BISACODYL 10 MG SUPP RECTAL PRN (19:00)
[2016-08-30] MEDS ORDERED: LORazepam 2 MG/ML VIAL IV PRN ×2 (19:00)
[2016-08-30] MEDS ORDERED: LORazepam 2 MG/ML VIAL IVS PRN (19:00)
[2016-08-30] MEDS ORDERED: FUROSEMIDE 20 MG/2 ML VIAL IV PRN (19:00)
[2016-08-30] MEDS ORDERED: ACETAMINOPHEN 650 MG SUPP RECTAL PRN (19:00)
[2016-08-30] MEDS ORDERED: HYDROmorphone HCL PF 2 MG/ML VIAL IV PRN (19:00)
[2016-08-30] MEDS ORDERED: HYOSCYAMINE 0.5 MG/ML AMP IV PRN (19:00)
[2016-08-30] MEDS: HYDROmorphone HCL PF 2 MG/ML VIAL IV PRN ×2 (19:31→20:10)
--- NOTE | 2016-08-30 19:54 | HHI.HCPN ---
I was called by THALIA Hsu to request assistance with this patient who was recently admitted to [facility] 08/29/16 for esophageal adenocarcinoma. Patient was FULL CODE and had not yet picked up comfort medications from pharmacy. He presented to [facility] emergency department for evaluation of new onset severe left sided abdominal pain. He described the pain as feeling like something "exploded." Patient was in severe pain and family unable to control pain. Patient has had some generalized pain, but this was a new severe pain. Patient advised ER staff he wanted NO CODE status and did not want "to prolong this any longer." CT abdomen/pelvis revealed interval development of extensive free intraperitoneal air, tiny left lung nodule, interval development of ileus. WBC 3.2, hemoglobin 13.6, hematocrit 41.2, platelet count 398. BUN 58, creatinine 1.81, GFR 40. Upon arrival to the bedside patient is awake and alert. He is cachectic, color is dusky, mottling hands and bilateral lower extremities toes to thighs. Tachycardic. Lung sounds diminished bilaterally. Respirations are labored, using accessory muscles to breathe. Abdomen distended. PEG tube. Systolic blood pressure 50s. Patient appears to be imminently dying. Patient's mother, 2 daughters, and various other family members are at bedside. Appropriately tearful. [employer] services requested. Also present Kelli Tao LCSW. Hospice after-hours nurse, Ford BERMEO arrived to provide additional support. Reviewed current findings with family members, explained patient is imminently dying with life expectancy hours to days. Patient medicated with lorazepam and morphine with some improvement in respiratory status/tachypnea. Plan for inpatient hospice admission for symptom management dyspnea/tachypnea, pain. Reviewed plan of care for symptom management (orders entered) with mother and daughters, they are in agreement with medication orders. Will change from PRN morphine to Dilaudid given renal insufficiency. Will also add PRN Haldol as there is some question as to whether or not the patient is hallucinating. Family is very appreciative, verbalize struggle as this all seems so fast. Reviewed medical findings and acute development of free intraperitoneal air. Questions answered to their satisfaction. Discussed with Dr. Harris. Will admit general inpatient for management of dyspnea/tachypnea, pain to Dr. Giles service. . Lisa Brink Aug 30, 2016 19:54
[2016-08-30 21:15] VITALS: BP 70/51; RESP 22; TEMP 96.2; O2SAT 92
[2016-08-31] MEDS ORDERED: DEXAMETHASONE SOD PHOS 4 MG/ML VIAL IV PUSH SCH (09:00)
== END 2016-08-30 21:40 | disposition expired | DRG 376 ==
LOC: NEPC 13:51 → NEDA 17:59 → HOCB 21:16
PROVIDERS: ADMIT Family Medicine; ATTEND Family Medicine
DX: C15.9 Malignant neoplasm of esophagus, unspecified (principal); Z66 Do not resuscitate; Z51.5 Encounter for palliative care
CPT/HCPCS: 71010; 74176; 80048; 84155; 85025; 96374; 96375; 96376; J1170; J2060; J2270; J7030; J7040